=== PATIENT | female | born 1960 | race Caucasian/White ===

== ENCOUNTER 2020-08-28 14:31 | Outpatient (REF) | payer OTHER, SELFPAY ==
[2020-08-28 17:09] LABS: MANUAL DIFF FLAG NO
[2020-08-28 17:22] LABS: Basophils Percent Auto 0.4 % (0-2); Eosinophils Absolute Auto 0.2 X10*3/uL (0.0-0.4); Eosinophils Percent Auto 1.8 % (0-4); Hematocrit 43.4 % (37-47); Hemoglobin 14.5 g/dl (12.0-16.0); Imm Gran Abs Auto 0.03 X10*3/uL (0.00-0.03); Imm Gran Pct Auto 0.3 % (0.0-0.4); Lymphocytes Absolute Auto 3.2 X10*3/uL (1.2-4.9); Mean Corpuscular HGB Conc 33.4 g/dl (31.0-35.0); Mean Corpuscular Hemoglobin 30.9 pg (27.0-33.0); Mean Corpuscular Volume 92.3 fL (80-98); Mean Platelet Volume 10.8 fL (9.4-12.3); Monocytes Absolute Auto 0.4 X10*3/uL (0.1-1.2); Monocytes Percent Auto 4.4 % (2-11); Neutrophils Absolute Auto 6.1 X10*3/uL (2.0-8.3); Neutrophils Percent Auto 61.1 % (45-73); Platelet Count 248 X10*3/uL (160-400); Red Cell Distribution Width 12.1 % (11.0-16.0)
[2020-08-28 17:33] LABS: Anion Gap 14 (12-20); Blood Urea Nitrogen 17 mg/dL (9-16); Calcium 9.8 mg/dL (8.4-10.2); Carbon Dioxide 29 mmol/L (22-29); Chloride 101 mmol/L (96-108); Estimated Glomerular Filt Rate > 60; Glucose Random 85 mg/dL (60-115); Potassium 4.4 mmol/l (3.3-5.1); Sodium 140 mmol/L (135-145)
[2020-08-29 19:42] LABS: LDL Cholesterol Direct 163 mg/dL (<100)
[2020-09-01 08:42] LABS: Vitamin D 25-OH, D2 <4 ng/mL; Vitamin D 25-OH, D3 51 ng/mL; Vitamin D 25-OH, Total 51 ng/mL (30-100)
== END 2020-08-28 14:32 | disposition home or self-care (01) ==
LOC: HO.HMGCLDS 14:31
PROVIDERS: PCP Internal Medicine; Visit Provider Internal Medicine
DX: R00.2 Palpitations (principal); J44.9 Chronic obstructive pulmonary disease, unspecified; G47.9 Sleep disorder, unspecified; F33.9 Major depressive disorder, recurrent, unspecified; E78.9 Disorder of lipoprotein metabolism, unspecified; M81.0 Age-related osteoporosis without current pathological fracture
CPT/HCPCS: 36415; 80048; 82306; 83721; 84443; 85025

== ENCOUNTER 2020-08-30 12:41 | Outpatient (REF) | payer OTHER, SELFPAY ==
--- NOTE | 2020-08-30 12:47 | XR_ITS ---
EXAMINATION: XR SOFT TISSUE NECK CLINICAL INDICATION: Localized swelling, mass and lump neck. COMPARISON: None TECHNIQUE: 2 views of the soft tissue neck were obtained. FINDINGS: The nasopharynx is widely patent. The oropharynx and vallecula are unremarkable. The epiglottis and aryepiglottic folds and subglottic airway appear normal. There is no prevertebral soft tissue swelling. Again, there is prior fusion cervical spine with anterior plate and screws C4-C6. There are degenerative changes with vertebral spurring and mild facet degeneration. Lung apices are clear. XR/XR soft tissue neck IMPRESSION: Unremarkable examination.
--- NOTE | 2020-08-30 12:47 | XR_ITS ---
EXAMINATION: XR CHEST CLINICAL INFORMATION: Cough COMPARISON: Chest radiographs 10/21/2016, 01/09/2016 TECHNIQUE: 2 views of the chest were obtained. FINDINGS: There is hyperinflation/COPD similar to prior study. The lungs are clear. The vascularity is normal. There is no airspace consolidation or groundglass opacity. The costophrenic sulci are clear. The heart is normal in size. The vascularity is normal. The hilar and mediastinal contours are normal. No acute bony abnormality. Again, there is curvature thoracic spine and old fusion hardware lower cervical spine. XR/XR chest 2V IMPRESSION: Hyperinflation/COPD. Lungs clear.
== END 2020-08-30 12:42 | disposition home or self-care (01) ==
LOC: HO.HMGCX 12:41
PROVIDERS: PCP Internal Medicine; Visit Provider Internal Medicine
DX: R22.1 Localized swelling, mass and lump, neck (principal); R05 Cough; F17.200 Nicotine dependence, unspecified, uncomplicated; J44.9 Chronic obstructive pulmonary disease, unspecified
CPT/HCPCS: 70360; 71046

== ENCOUNTER 2020-09-01 07:35 | Outpatient (REF) | payer OTHER, SELFPAY ==
--- NOTE | 2020-09-01 07:38 | MM_ITS ---
EXAMINATION: MM SCREENING DIGITAL BREAST TOMOSYNTHESIS, BILATERAL CLINICAL INFORMATION: Screening. Asymptomatic. The lifetime risk of breast cancer based on the Tyrer-Cuzick Model is 7.1%. COMPARISON: Mammography: August 27, 2019 and studies dating back to July 23, 2015 TECHNIQUE: Digital breast tomosynthesis is performed in both the craniocaudal and mediolateral oblique views along with computer-aided detection (CAD). Synthesized 2D images are generated from the tomosynthesis. FINDINGS: The breasts are heterogeneously dense, which may obscure small masses (ACR BI-RADS breast composition Category c). There are no significant masses, abnormal calcifications, or other abnormalities. MM/MM tomosynthesis screening BI IMPRESSION: There are no significant changes from prior study. ASSESSMENT: BI-RADS 1: Negative RECOMMENDATION: Routine annual mammography screening. This patient's information was entered into a reminder system with a target due date for their next mammogram.
== END 2020-09-01 07:36 | disposition home or self-care (01) ==
LOC: HO.MAMMO 07:35
PROVIDERS: Visit Provider Internal Medicine
DX: Z12.31 Encounter for screening mammogram for malignant neoplasm of breast (principal)
CPT/HCPCS: 77063; 77067

== ENCOUNTER 2021-02-08 08:31 | Outpatient (REF) | payer OTHER, SELFPAY ==
--- NOTE | ~2021-02-08 | XR_ITS ---
EXAMINATION: XR HIP, LEFT CLINICAL INFORMATION: Left hip pain COMPARISON: Previous x-ray September 2015 TECHNIQUE: Two views of the left hip. FINDINGS: Bone alignment is normal. No fracture or dislocation is seen. There are small osteophytes seen at the left hip joint.. Soft tissues are normal. XR/XR hip LT min 2V IMPRESSION: Mild degenerative changes.
[2021-02-08 11:19] LABS: MANUAL DIFF FLAG NO
[2021-02-08 11:40] LABS: Basophils Absolute Auto 0.1 X10*3/uL (0.0-0.2); Basophils Percent Auto 0.5 % (0-2); Eosinophils Absolute Auto 0.1 X10*3/uL (0.0-0.4); Eosinophils Percent Auto 1.3 % (0-4); Hematocrit 44.8 % (37-47); Hemoglobin 14.5 g/dl (12.0-16.0); Imm Gran Abs Auto 0.02 X10*3/uL (0.00-0.03); Imm Gran Pct Auto 0.2 % (0.0-0.4); Lymphocytes Absolute Auto 2.7 X10*3/uL (1.2-4.9); Lymphocytes Percent Auto 25.8 % (20-40); Mean Corpuscular HGB Conc 32.4 g/dl (31.0-35.0); Mean Corpuscular Hemoglobin 30.9 pg (27.0-33.0); Mean Corpuscular Volume 95.5 fL (80-98); Mean Platelet Volume 10.7 fL (9.4-12.3); Monocytes Absolute Auto 0.4 X10*3/uL (0.1-1.2); Monocytes Percent Auto 4.2 % (2-11); Neutrophils Absolute Auto 7.1 X10*3/uL (2.0-8.3); Platelet Count 258 X10*3/uL (160-400); Red Blood Count 4.69 X10*6/uL (4.20-5.50); Red Cell Distribution Width 12.3 % (11.0-16.0); White Blood Count 10.4 X10*3/uL (4.8-10.8)
[2021-02-08 12:13] LABS: Alanine Aminotransferase 28 U/L (0-31); Albumin Level 4.9 g/dL (3.5-5.0); Alkaline Phosphatase 79 U/L (39-117); Anion Gap 18 (12-20); Aspartate Amino Transferase 24 U/L (5-31); Bilirubin Total 0.8 mg/dL (0.0-1.0); Blood Urea Nitrogen 15 mg/dL (9-16); Calcium 9.9 mg/dL (8.4-10.2); Carbon Dioxide 25 mmol/L (22-29); Chloride 102 mmol/L (96-108); Cholesterol 306 mg/dL; Estimated Glomerular Filt Rate > 60; Glucose Fasting 86 mg/dL (60-99); HDL Cholesterol 92 mg/dL; LDL Cholesterol Calculated 176 mg/dl; Potassium 4.4 mmol/L (3.3-5.1); Sodium 141 mmol/L (135-145); Triglycerides 194 mg/dL
[2021-02-08 12:16] LABS: TSH reflex Free T4 1.34 uIU/mL (0.32-4.0)
[2021-02-14 12:11] LABS: Vitamin D 25-OH, D2 <4 ng/mL; Vitamin D 25-OH, D3 65 ng/mL; Vitamin D 25-OH, Total 65 ng/mL (30-100)
== END 2021-02-08 08:32 | disposition home or self-care (01) ==
LOC: HO.HMGCX 08:31
PROVIDERS: PCP Internal Medicine; Visit Provider Internal Medicine
DX: Z00.01 Encounter for general adult medical examination with abnormal findings (principal); M25.552 Pain in left hip; M81.0 Age-related osteoporosis without current pathological fracture; J44.9 Chronic obstructive pulmonary disease, unspecified; E78.9 Disorder of lipoprotein metabolism, unspecified; G47.9 Sleep disorder, unspecified; F33.9 Major depressive disorder, recurrent, unspecified; F17.200 Nicotine dependence, unspecified, uncomplicated
CPT/HCPCS: 36415; 73502; 80053; 80061; 82306; 84443; 85025

== ENCOUNTER 2021-05-15 07:03 | Outpatient (REF) | payer OTHER, SELFPAY ==
[2021-05-15 12:02] LABS: Alanine Aminotransferase 20 U/L (0-31); Albumin Level 4.2 g/dL (3.5-5.0); Alkaline Phosphatase 63 U/L (39-117); Anion Gap 16 (12-20); Aspartate Amino Transferase 21 U/L (5-31); Bilirubin Total 1.1 mg/dL (0.0-1.0); Blood Urea Nitrogen 18 mg/dL (9-16); Calcium 9.7 mg/dL (8.4-10.2); Carbon Dioxide 26 mmol/L (22-29); Chloride 106 mmol/L (96-108); Cholesterol 215 mg/dL; Estimated Glomerular Filt Rate > 60; Glucose Fasting 94 mg/dL (60-99); HDL Cholesterol 83 mg/dL; LDL Cholesterol Calculated 112 mg/dl; Potassium 4.7 mmol/L (3.3-5.1); Sodium 143 mmol/L (135-145); Total Protein 6.9 g/dL (6.5-8.0); Triglycerides 103 mg/dL
== END 2021-05-15 07:04 | disposition home or self-care (01) ==
LOC: HO.HMGCLDS 07:03
PROVIDERS: PCP Internal Medicine; Visit Provider Internal Medicine
DX: E78.9 Disorder of lipoprotein metabolism, unspecified (principal); F33.9 Major depressive disorder, recurrent, unspecified; G47.9 Sleep disorder, unspecified; J44.9 Chronic obstructive pulmonary disease, unspecified
CPT/HCPCS: 36415; 80053; 80061

== ENCOUNTER 2021-09-07 09:55 | Outpatient (REF) | payer OTHER, SELFPAY ==
--- NOTE | ~2021-09-07 | MM_ITS ---
EXAMINATION: MM SCREENING DIGITAL BREAST TOMOSYNTHESIS, BILATERAL CLINICAL INFORMATION: Screening. Asymptomatic. The lifetime risk of breast cancer based on the Tyrer-Cuzick Model is 7%. COMPARISON: Mammography: 09/01/2020, 08/27/2019, 08/11/2018 TECHNIQUE: Digital breast tomosynthesis is performed in both the craniocaudal and mediolateral oblique views along with computer-aided detection (CAD). Synthesized 2D images are generated from the tomosynthesis. Additional right CC view is provided. FINDINGS: The breasts are heterogeneously dense, which may obscure small masses (ACR BI-RADS breast composition Category c). There are no significant masses, abnormal calcifications, or other abnormalities. Breast tissue composition borders on average fibroglandular. No developing density. The axilla and skin contours are unremarkable. No significant changes. MM/MM tomosynthesis screening BI IMPRESSION: No mammographic evidence of malignancy. ASSESSMENT: BI-RADS 1: Negative RECOMMENDATION: Routine annual mammography screening. This patient's information was entered into a reminder system with a target due date for their next mammogram.
== END 2021-09-07 09:56 | disposition home or self-care (01) ==
LOC: HO.MAMMO 09:55
PROVIDERS: PCP Internal Medicine; Visit Provider Internal Medicine
DX: Z12.31 Encounter for screening mammogram for malignant neoplasm of breast (principal)
CPT/HCPCS: 77063; 77067

== ENCOUNTER 2022-08-26 12:04 | Outpatient (REF) | payer OTHER, SELFPAY ==
--- NOTE | ~2022-08-26 | XR_ITS ---
EXAMINATION: XR SHOULDER, RIGHT CLINICAL INFORMATION: Pain COMPARISON: None TECHNIQUE: AP external rotation, Grashey, scapular Y, and axillary views of the right shoulder. FINDINGS: Bone alignment is normal. No fracture or dislocation. Normal glenohumeral joint. Mild arthritis at the acromioclavicular joint. Soft tissue calcification adjacent to the greater tuberosity suggestive of calcific tendinitis or bursitis. XR/XR shoulder RT min 2V IMPRESSION: Arthritis at the acromioclavicular joint and soft tissue calcification adjacent to the greater tuberosity suggestive of calcific tendinitis or bursitis.
== END 2022-08-26 12:05 | disposition home or self-care (01) ==
LOC: HO.HMGCX 12:04
PROVIDERS: PCP Nurse Practitioner Family; Visit Provider Nurse Practitioner Family
DX: M25.511 Pain in right shoulder (principal)
CPT/HCPCS: 73030

== ENCOUNTER 2022-09-07 13:55 | Emergency (ER) | payer OTHER, SELFPAY ==
--- NOTE | ~2022-09-07 | CT_ITS ---
EXAMINATION: CT CHEST, ABDOMEN AND PELVIS WITHOUT CONTRAST CLINICAL INFORMATION: Left flank pain, trauma COMPARISON: CT chest 06/19/2017 TECHNIQUE: Multidetector volumetric imaging was performed of the chest, abdomen and pelvis following administration of without intravenous contrast. Oral contrast was not administered. Sagittal and coronal reformatted images were obtained on the technologist's workstation. This CT examination was performed using dose optimization techniques as appropriate, variously including the following: *Automated exposure control *Adjustment of mA and/or kV according to patient size (this includes techniques or standardized protocols for targeted exams where dose is matched to indication/reason for exam; i.e. extremities or head) *Use of iterative reconstruction technique DLP: 530 mGy-cm FINDINGS: CHEST WALL: Unremarkable. ABDOMINAL AND PELVIC WALL: Unremarkable. AXILLA: No lymphadenopathy. MEDIASTINUM: Heart is normal in size. No mediastinal lymphadenopathy. Lack of intravenous contrast limits evaluation for hilar adenopathy. Coronary artery calcification is present. PLEURA: There is no pleural effusion. LIVER AND BILIARY TREE: Unremarkable. GALLBLADDER: Unremarkable PANCREAS: Unremarkable SPLEEN: Unremarkable ADRENAL GLANDS: Unremarkable. KIDNEYS AND URETERS: No hydronephrosis or nephrolithiasis. UPPER GASTROINTESTINAL TRACT: The stomach and duodenum are unremarkable. VASCULAR: Unremarkable. ABDOMINOPELVIC LYMPH NODES: No lymphadenopathy. FREE FLUID: No free fluid. BLADDER: Unremarkable PELVIC VISCERA: Unremarkable LOWER GASTROINTESTINAL TRACT: Large and small bowel are unremarkable. Normal appendix. OSSEOUS STRUCTURES: Partially imaged cervical fusion hardware. L5 pars defects with grade 1 anterolisthesis of L5 on S1. No acute osseous abnormality. LUNGS: Moderate centrilobular emphysema. Few sub-5 mm solid pulmonary nodules, for example a 4 mm solid right upper lobe pulmonary nodule, 7:205 stable from 2017 favoring benign etiology. Few scattered distal endobronchial filling defects suggesting mucus impaction. CT/CT abdomen pelvis wo IV con IMPRESSION: 1. No traumatic findings in the chest, abdomen or pelvis. 2. Moderate centrilobular emphysema, recommend correlation with risk factors and consideration of annual low-dose screening CT chest. Few sub-5 mm solid pulmonary nodules are present however stable from 2017 favoring benign etiology. 3. Coronary artery calcification is present.
[2022-09-07 15:23] VITALS: BP 123/63; PULSE 76; RESP 18; TEMP 36.8; O2SAT 97; BMI 22.6
[2022-09-07 15:51] LABS: Appearance Urine Clear; Color Urine Yellow; Glucose Urine UA Negative (Negative); Leukocyte Esterase Urine Negative (Negative); Nitrite Urine Negative (Negative); UMIC TRIGGER UACC YES; Urine Blood Large (3+) (Negative); Urine Ketones 15 mg/dL (Negative); Urine Protein Negative (Neg-Trace)
[2022-09-07 15:56] LABS: Bacteria Urine None Seen (None Seen); Hyaline Casts Urine 0-2 /LPF (0-2); Squamous Epithelial Cell Urine 0-2 /HPF (0-2); WBC Urine 0-5 /HPF (0-5)
--- NOTE | 2022-09-07 18:35 | ED_ITS ---
HPI - General Adult General Chief complaint: Fall Stated complaint: fall 09/07/22 blood in urine Time Seen by Provider: 09/07/22 18:34 Source: patient Mode of arrival: ambulatory Limitations: no limitations History of Present Illness HPI narrative: Patient is a 62 year old assigned female at with a history of anxiety, depression, and COPD presenting to the emergency department today with left si ded pain after a fall. Patient states that earlier today she missed her last step and fell into some totes, striking her left side. Patient denies hitting her head in the incident. Patient denies any loss of consciousness. Patient denies any dizziness, lightheadedness, abdominal pain, nausea, vomiting, fever, chills, blurry vision, double vision, loss of vision, chest pain, difficulty breathing, shortness of breath, back pain, night sweats, pain with urination, increased urinary frequency, increased urinary urgency, blood in her stool, syncope or a near syncopal episode, bowel incontinence, bladder incontinence, bowel retention, bladder retention, or any other complaints at this time. Onset (ago): hour(s) Location: left (torso) Radiation: non-radiation Severity: mild Severity scale (1-10): 4 Quality: dull Pain Consistency: constant Relieving factors: none Exacerbating factors: none Associated symptoms: denies other symptoms Treatments prior to arrival: none Related Data Home Medications Medication Instructions Recorded Confirmed cholecalciferol (vitamin D3) 50 50 mcg PO DAILY 09/20/21 mcg (2,000 unit) capsule multivitamin (Daily Multi-Vitamin 1 tab PO DAILY 09/20/21 tablet) vitamin A 2,400 mcg capsule 2,400 mcg PO DAILY 08/26/22 Previous Rx's Medication Instructions Recorded ibuprofen 400 mg tablet 400 mg PO TID PRN pain #90 tabs 09/29/20 omega 2-mcf-ftx-fish oil 300 1 cap PO DAILY 90 days #90 caps 09/20/21 mg-1,000 mg capsule (Fish Oil) ezetimibe 10 mg tablet (Zetia) 10 mg PO DAILY 90 days #90 tabs 07/24/22 paroxetine HCl 40 mg tablet 40 mg PO QAM 90 days #90 tabs 07/24/22 trazodone 100 mg tablet 100 mg PO BEDTIME 90 days #90 tabs 07/24/22 Allergies Allergy/AdvReac Type Severity Reaction Status Date / Time buspirone AdvReac Unknown vomiting Verified 08/26/22 11:30 varenicline [From Chantix] AdvReac Mood Verified 08/26/22 11:30 changes, anger Wellbutrin AdvReac Unknown vomiting Uncoded 08/26/22 11:30 Review of Systems Constitutional: Constitutional: Reports no additional constitutional complaints, Denies chills, Denies fever(s) and Denies night sweats Eyes: Eyes: Reports no additional eye complaints, Denies blurry vision, Denies change in vision, Denies diplopia, Denies eye discharge, Denies loss of vision and Denies eye pain ENT: Denies dizziness Cardiovascular: Cardiovascular: Reports no additional cardiovascular complaints, Denies chest pain, Denies lightheadedness, Denies Loss of Consciousness and Denies dyspnea Respiratory: Respiratory: Reports no additional respiratory complaints and Denies dyspnea Gastrointestinal: Gastrointestinal: Reports no additional gastrointestinal complaints, Denies abdominal pain, Denies melena, Denies hematochezia, Denies change in bowel habits and Denies change in stool character Genitourinary: Genitourinary: Denies hematuria, Denies urinary frequency, Denies dysuria, Denies urinary incontinence, Denies urinary hesitancy and Denies urinary urgency Musculoskeletal: Musculoskeletal: Reports no additional musculoskeletal complaints, Denies numbness and Denies tingling Comments: left sided toros pain Neurologic: Denies dizziness, Denies loss of vision, Denies numbness and Denies tingling Psychiatric: Psychiatric: Reports no additional psychiatric complaints Endocrine: Endocrine: Reports no additional endocrine complaints Hematologic/Lymphatic: Hematologic/Lymphatic: Reports no additional hematologic/lymphatic complaints Allergic/Immunologic: Allergic/Immunologic: Reports no additional allergic/immunologic complaints [facility] Past Medical History Attestation statement: The following information was validated with the patient. Source: old records reviewed Medical History COPD (chronic obstructive pulmonary disease) Depression, major, recurrent Difficulty sleeping HLA B27 (HLA B27 positive) Lipid disorder Osteoporosis Palpitations Sleep apnea Smoker Urinary incontinence Surgical History Glaucoma History of laparoscopy History of spinal fusion History of vaginal hysterectomy Pinguecula of both eyes Family History Family History Father CVD (cardiovascular disease) Mother Kidney failure CHF (congestive heart failure) Atherosclerosis Atherosclerotic peripheral vascular disease Foot ulcer CVD (cardiovascular disease) Sister History of heart attack Brother CVD (cardiovascular disease) HTN (hypertension) Maternal Grandfather Unknown family medical history Maternal Grandmother Unknown family medical history Paternal Grandmother Bladder cancer Paternal Grandfather History of CVA (cerebrovascular accident) Other Mental health disorder Social History Social History Housing: House Alcohol intake: current Alcohol intake frequency: 0-2 drinks per day Alcohol type: wine Patient Tobacco Use Status: Current everyday Tobacco user Cigarettes Per Day: 10 Smoked in Last 30 Days: Yes e-Cigarette/Vaping Use: Never Used Second Hand Smoke Exposure: Yes Use of substances other than those prescribed or required for medical reasons: No Advance Directives: Yes Advance Directives Information Provided: No Advance Directives on File: No Current occupational status: disabled Cognitive needs: No Hearing needs: No Vision needs: No Physical Exam ED Vital Signs: Vital Signs - 24 hr 09/07/22 15:23 Temperature 98.2 F Pulse Rate 76 Respiratory Rate 18 Blood Pressure 123/63 Pulse Oximetry 97 Oxygen Delivery Method Room Air BMI result Body Mass Index 22.6 Const General: cooperative, no acute distress, alert and awake Nutritional Appearance: well nourished Orientation/consciousness: patient oriented x3 Limitations: no limitations HENMT Head: Yes normal to inspection and Yes atraumatic Ears: hearing grossly normal bilaterally and external ears normal General nose exam: Normal external nose present, no nasal discharge noted and no epistaxis Face and sinus: Yes normal facial exam, No abrasion and No laceration Mouth: Normal oral and palatal mucosa present, no drooling and no muffled voice Eyes General: appearance normal, both eyes and all related structures Periorbital: periorbital findings normal Eyelids: Yes eyelids normal Conjunctivae: conjunctivae normal Pupils: Equal, round and reactive pupils present EOM: EOMs intact bilaterally Neck Neck: Yes normal visual inspection, Yes full ROM and Yes no lymphadenopathy Chest Chest palpation & inspection: normal inspection of the chest Resp Effort & Inspection: normal respiratory effort and able to speak in complete sentences Auscultation: clear to auscultation bilaterally Cardio Rate: regular rate Rhythm: regular rhythm GI Inspection: Yes normal to inspection Neuro General: patient oriented x3 and moves all extremities Cranial nerves: Yes Equal, round and reactive pupils present Cognition (Neuro): normal cognition Motor exam (neuro): 5/5 motor strength present throughout Sensory Exam: Normal double simultaneous stimulation for sensation Coordination: [id number] test normal Extrem General: Yes normal to inspection, Yes full ROM and Yes capillary refill normal Psych Appearance: grossly normal Mental Status: mental status grossly normal Affect: normal affect Attitude: cooperative Thought process: Normal thought process present Thought content: Normal thought content present Insight: Good insight present (Psych) Medical Decision Making MDM Narrative Medical decision making narrative: Patient is a 62 year old assigned female at with a history of anxiety, depression, and COPD presenting to the emergency department today with left sided torso pain. Patient's physical exam was unremarkable. Patient's blood work was unremarkable. Patient's urine showed blood but no acute infectious process. Patient's chest and abdominal CTs showed no acute process. I explained my physical exam findings as well as all test results to the patient. I answered all questions asked by the patient. Patient received PO [place] which she stated helped her pain significantly. I stressed the importance of the patient taking her medication as prescribed. I stressed the importance of the patient following up with her primary care provider. I stressed the importance of the patient returning to the emergency department immediately if her symptoms were to worsen or if she were to develop any dizziness, shortness of breath, difficulty breathing, chest pain, blurry vision, loss of vision, nausea, vomiting, ab dominal pain, fever, chills, back pain, or any other complaints. Patient verbalized agreement and understanding with this treatment plan and discharge. Medical Records Medical records reviewed: Yes I reviewed the patient's medical records. Lab Data Lab results reviewed: Yes I reviewed the patient's lab results. Result diagrams: 09/07/22 19:13 09/07/22 19:13 Labs: Lab Results 09/07/22 09/07/22 09/07/22 Range/Units 15:39 19:13 19:13 WBC 10.2 (4.8-10.8) X10*3/uL RBC 4.51 (4.20-5.50) X10*6/uL Hgb 14.2 (12.0-16.0) g/dl Hct 42.8 (37.0-47.0) % MCV 94.9 (80.0-98.0) fL MCH 31.5 (27.0-33.0) pg MCHC 33.2 (31.0-35.0) g/dl RDW 12.2 (11.0-16.0) % Plt Count 226 (160-400) X10*3/uL MPV 9.7 (9.4-12.3) fL Immature Gran % (Auto) 0.3 (0.0-0.4) % Neut % (Auto) 73.4 H (45-73) % Lymph % (Auto) 21.3 (20-40) % [place] % (Auto) 3.6 (2-11) % Eos % (Auto) 1.0 (0-4) % Baso % (Auto) 0.4 (0-2) % Lymph # (Auto) 2.2 (1.2-4.9) X10*3/uL [place] # (Auto) 0.4 (0.1-1.2) X10*3/uL Eos # (Auto) 0.1 (0.0-0.4) X10*3/uL Baso # (Auto) 0.0 (0.0-0.2) X10*3/uL Abs Immat Gran (auto) 0.03 (0.00-0.03) X10*3/uL Absolute Neuts (auto) 7.5 (2.0-8.3) x10*3/uL Absolute Nucleated RBC 0.000 (0.0-0.012) X10*3/uL Nucleated RBC % (auto) 0.0 (0.0-0.2) /100WBC PT 10.3 (10.0-13.1) SEC INR 0.9 (0.9-1.1) APTT 31.8 (26.0-36.4) SEC Sodium (135-145) mmol/L Potassium (3.3-5.1) mmol/L Chloride (96-108) mmol/L Carbon Dioxide (22-29) mmol/L Anion Gap (12-20) BUN (9-16) mg/dL Creatinine (0.5-1.4) mg/dL Estim Creat Clear Calc Estimated GFR Random Glucose (60-115) mg/dL Calcium (8.4-10.2) mg/dL Magnesium (1.6-2.6) mg/dL Total Bilirubin (0.0-1.0) mg/dL AST (5-31) U/L ALT (0-31) U/L Alkaline Phosphatase (39-117) U/L Total Protein (6.5-8.0) g/dL Albumin (3.5-5.0) g/dL Urine Color Yellow Urine Appearance Clear Urine pH 5.0 (5.0-9.0) Ur Specific [place] 1.020 (1.005-1.025) Urine Protein Negative (Neg-Trace) mg/dL Urine Glucose (UA) Negative (Negative) mg/dL Urine Ketones 15 (Negative) mg/dL Urine Blood Large (3+) H (Negative) Urine Nitrite Negative (Negative) Ur Leukocyte Esterase Negative (Negative) Urine RBC 6-10 H (0-2) /HPF Urine WBC 0-5 (0-5) /HPF Ur Squamous Epith Cells 0-2 (0-2) /HPF Urine Bacteria None Seen (None Seen) Hyaline Casts 0-2 (0-2) /LPF 09/07/22 Range/Units 19:13 WBC (4.8-10.8) X10*3/uL RBC (4.20-5.50) X10*6/uL Hgb (12.0-16.0) g/dl Hct (37.0-47.0) % MCV (80.0-98.0) fL MCH (27.0-33.0) pg MCHC (31.0-35.0) g/dl RDW (11.0-16.0) % Plt Count (160-400) X10*3/uL MPV (9.4-12.3) fL Immature Gran % (Auto) (0.0-0.4) % Neut % (Auto) (45-73) % Lymph % (Auto) (20-40) % [place] % (Auto) (2-11) % Eos % (Auto) (0-4) % Baso % (Auto) (0-2) % Lymph # (Auto) (1.2-4.9) X10*3/uL [place] # (Auto) (0.1-1.2) X10*3/uL Eos # (Auto) (0.0-0.4) X10*3/uL Baso # (Auto) (0.0-0.2) X10*3/uL Abs Immat Gran (auto) (0.00-0.03) X10*3/uL Absolute Neuts (auto) (2.0-8.3) x10*3/uL Absolute Nucleated RBC (0.0-0.012) X10*3/uL Nucleated RBC % (auto) (0.0-0.2) /100WBC PT (10.0-13.1) SEC INR (0.9-1.1) APTT (26.0-36.4) SEC Sodium 138 (135-145) mmol/L Potassium 4.1 (3.3-5.1) mmol/L Chloride 104 (96-108) mmol/L Carbon Dioxide 23 (22-29) mmol/L Anion Gap 15 (12-20) BUN 22 H (9-16) mg/dL Creatinine 1.10 (0.5-1.4) mg/dL Estim Creat Clear Calc 43.0 Estimated GFR 51 Random Glucose 143 H (60-115) mg/dL Calcium 9.5 (8.4-10.2) mg/dL Magnesium 2.1 (1.6-2.6) mg/dL Total Bilirubin 0.6 (0.0-1.0) mg/dL AST 27 (5-31) U/L ALT 26 (0-31) U/L Alkaline Phosphatase 68 (39-117) U/L Total Protein 7.2 (6.5-8.0) g/dL Albumin 4.3 (3.5-5.0) g/dL Urine Color Urine Appearance Urine pH (5.0-9.0) Ur Specific [place] (1.005-1.025) Urine Protein (Neg-Trace) mg/dL Urine Glucose (UA) (Negative) mg/dL Urine Ketones (Negative) mg/dL Urine Blood (Negative) Urine Nitrite (Negative) Ur Leukocyte Esterase (Negative) Urine RBC (0-2) /HPF Urine WBC (0-5) /HPF Ur Squamous Epith Cells (0-2) /HPF Urine Bacteria (None Seen) Hyaline Casts (0-2) /LPF Imaging Data CT abdomen, pelvis, chest: Attestation: I personally reviewed and interpreted this imaging study as follows: My impression: No acute process. Radiologist's impression: EXAMINATION: CT CHEST, ABDOMEN AND PELVIS WITHOUT CONTRAST CLINICAL INFORMATION: Left flank pain, trauma? COMPARISON: CT chest 06/19/2017? TECHNIQUE: Multidetector volumetric imaging was performed of the chest, abdomen and pelvis following administration of without intravenous contrast. Oral contrast was not administered. Sagittal and coronal reformatted images were obtained on the technologist's workstation. This CT examination was performed using dose optimization techniques as appropriate, variously including the following: *Automated exposure control *Adjustment of mA and/or kV according to patient size (this includes techniques or standardized protocols for targeted exams where dose is matched to indication/reason for exam; i.e. extremities or head) *Use of iterative reconstruction technique DLP: 530 mGy-cm FINDINGS: CHEST WALL: Unremarkable. ABDOMINAL AND PELVIC WALL:? Unremarkable.? AXILLA: No lymphadenopathy.? MEDIASTINUM:? Heart is normal in size. No mediastinal lymphadenopathy. Lack of intravenous contrast limits evaluation for hilar adenopathy. Coronary artery calcification is present. PLEURA: There is no pleural effusion.? ? LIVER AND BILIARY TREE: Unremarkable. ? GALLBLADDER: Unremarkable? PANCREAS: Unremarkable? SPLEEN: Unremarkable? ADRENAL GLANDS: Unremarkable.? KIDNEYS AND URETERS: No hydronephrosis or nephrolithiasis.? UPPER GASTROINTESTINAL TRACT: The stomach and duodenum are unremarkable. ? VASCULAR: Unremarkable. ABDOMINOPELVIC LYMPH NODES: No lymphadenopathy. FREE FLUID: No free fluid. BLADDER: Unremarkable? PELVIC VISCERA: Unremarkable LOWER GASTROINTESTINAL TRACT: Large and small bowel are unremarkable. Normal appendix. OSSEOUS STRUCTURES: Partially imaged cervical fusion hardware. L5 pars defects with grade 1 anterolisthesis of L5 on S1. No acute osseous abnormality.? LUNGS: Moderate centrilobular emphysema. Few sub-5 mm solid pulmonary nodules, for example a 4 mm solid right upper lobe pulmonary nodule, 7:205 stable from 2017 favoring benign etiology.? Few scattered distal endobronchial filling defects suggesting mucus impaction. CT/CT chest wo IV con IMPRESSION: 1.? No traumatic findings in the chest, abdomen or pelvis. 2.? Moderate centrilobular emphysema, recommend correlation with risk factors and consideration of annual low-dose screening CT chest. Few sub-5 mm solid pulmonary nodules are present however stable from 2017 favoring benign etiology. 3.? Coronary artery calcification is present. Dictated By: Arielle Rivas MD Signed By: Electronically signed by Arielle Rivas MD 09/07/222007 Discharge Plan Discharge Clinical Impression: Fall Patient Disposition: Home, Self-Care Instructions: Fall Prevention (ED) Additional Instructions: Your CT scan of your abdomen, pelvis, and chest showed no fractures/brakes or an y evidence of trauma. Your lab work was all normal including a normal complete blood count and comprehensive metabolic panel. Your urine showed the presence of some blood but no signs of infection. Follow up with your primary care provider. Return to the emergency department immediately if your symptoms worsen or if you develop any dizziness, shortness of breath, difficulty breathing, chest pain, blurry vision, loss of vision, nausea, vomiting, abdominal pain, fever, chills, back pain, or any other complaints. Prescriptions: No Action ibuprofen 400 mg tablet 400 mg PO TID PRN (Reason: pain) Qty: 90 2RF ezetimibe [Zetia] 10 mg tablet 10 mg PO DAILY 90 Days Qty: 90 1RF trazodone 100 mg tablet 100 mg PO BEDTIME 90 Days Qty: 90 0RF paroxetine HCl 40 mg tablet 40 mg PO QAM 90 Days Qty: 90 0RF cholecalciferol (vitamin D3) 50 mcg (2,000 unit) capsule 50 mcg PO DAILY multivitamin [Daily Multi-Vitamin] Tablet 1 tab PO DAILY omega 9-ctc-pby-fish oil [Fish Oil] 300-1,000 mg capsule 1 cap PO DAILY 90 Days Qty: 90 3RF vitamin A 2,400 mcg capsule 2,400 mcg PO DAILY Referrals: Melvin Lao, [employer] [facility] [Primary Care Provider] - Print Language: Portuguese
[2022-09-07 19:19] LABS: MANUAL DIFF FLAG NO
[2022-09-07 19:20] LABS: Basophils Percent Auto 0.4 % (0-2); Eosinophils Absolute Auto 0.1 X10*3/uL (0.0-0.4); Hematocrit 42.8 % (37.0-47.0); Hemoglobin 14.2 g/dl (12.0-16.0); Imm Gran Abs Auto 0.03 X10*3/uL (0.00-0.03); Imm Gran Pct Auto 0.3 % (0.0-0.4); Lymphocytes Absolute Auto 2.2 X10*3/uL (1.2-4.9); Lymphocytes Percent Auto 21.3 % (20-40); Mean Corpuscular HGB Conc 33.2 g/dl (31.0-35.0); Mean Corpuscular Hemoglobin 31.5 pg (27.0-33.0); Mean Corpuscular Volume 94.9 fL (80.0-98.0); Mean Platelet Volume 9.7 fL (9.4-12.3); Monocytes Absolute Auto 0.4 X10*3/uL (0.1-1.2); Monocytes Percent Auto 3.6 % (2-11); Neutrophils Absolute Auto 7.5 x10*3/uL (2.0-8.3); Neutrophils Percent Auto 73.4 % (45-73); Platelet Count 226 X10*3/uL (160-400); Red Blood Count 4.51 X10*6/uL (4.20-5.50); Red Cell Distribution Width 12.2 % (11.0-16.0); White Blood Count 10.2 X10*3/uL (4.8-10.8)
[2022-09-07 19:31] LABS: INTERNATIONAL NORM RATIO 0.9 (0.9-1.1); Prothrombin Time 10.3 SEC (10.0-13.1)
[2022-09-07 19:34] LABS: Partial Thromboplastin Time 31.8 SEC (26.0-36.4)
[2022-09-07 19:41] LABS: Alanine Aminotransferase 26 U/L (0-31); Albumin Level 4.3 g/dL (3.5-5.0); Alkaline Phosphatase 68 U/L (39-117); Anion Gap 15 (12-20); Aspartate Amino Transferase 27 U/L (5-31); Bilirubin Total 0.6 mg/dL (0.0-1.0); Blood Urea Nitrogen 22 mg/dL (9-16); Calcium 9.5 mg/dL (8.4-10.2); Carbon Dioxide 23 mmol/L (22-29); Chloride 104 mmol/L (96-108); Estimated Glomerular Filt Rate 51; Glucose Random 143 mg/dL (60-115); Magnesium 2.1 mg/dL (1.6-2.6); Potassium 4.1 mmol/L (3.3-5.1); Sodium 138 mmol/L (135-145); Total Protein 7.2 g/dL (6.5-8.0)
[2022-09-07] MEDS: HYDROcodone Bit/Acetam 5/325 TABLET 1 TAB PO (20:03)
[2022-09-07 20:53] VITALS: BP 120/82; PULSE 82; RESP 18; TEMP 36.7; O2SAT 98
== END 2022-09-07 20:55 | disposition home or self-care (01) ==
PROVIDERS: Physician Assistant Medical; Emergency Provider Emergency Medicine Emergency Medical Services; PCP Nurse Practitioner Family
DX: R10.12 Left upper quadrant pain (principal); Z91.81 History of falling
CPT/HCPCS: 36415; 71250; 74176; 80053; 81001; 83735; 85025; 85610; 85730; 99284

== ENCOUNTER 2022-09-29 11:46 | Outpatient (REF) | payer OTHER, SELFPAY ==
--- NOTE | ~2022-09-29 | MM_ITS ---
EXAMINATION: MM SCREENING DIGITAL BREAST TOMOSYNTHESIS, BILATERAL CLINICAL INFORMATION: Screening. Asymptomatic. The lifetime risk of breast cancer based on the Tyrer-Cuzick Model is 8%. COMPARISON: Mammography: 09/07/2021, 09/01/2020, 06/27/2019 TECHNIQUE: Digital breast tomosynthesis is performed in both the craniocaudal and mediolateral oblique views along with computer-aided detection (CAD). Synthesized 2D images are generated from the tomosynthesis. FINDINGS: The breasts are heterogeneously dense, which may obscure small masses (ACR BI-RADS breast composition Category c). There are no significant masses, abnormal calcifications, or other abnormalities. Parenchymal pattern is similar to prior studies. No developing density or architectural abnormality. The axilla and skin contours are unremarkable. MM/MM tomosynthesis screening BI IMPRESSION: No mammographic evidence of malignancy. ASSESSMENT: BI-RADS 1: Negative RECOMMENDATION: Routine annual mammography screening. This patient's information was entered into a reminder system with a target due date for their next mammogram.
== END 2022-09-29 11:47 | disposition home or self-care (01) ==
LOC: HO.MAMMO 11:46
PROVIDERS: PCP Nurse Practitioner Family; Visit Provider Nurse Practitioner Family
DX: Z12.31 Encounter for screening mammogram for malignant neoplasm of breast (principal)
CPT/HCPCS: 77063; 77067

== ENCOUNTER 2022-10-08 09:07 | Outpatient (REF) | payer OTHER, SELFPAY ==
[2022-10-08 11:23] LABS: MANUAL DIFF FLAG NO
[2022-10-08 11:27] LABS: Basophils Absolute Auto 0.1 X10*3/uL (0.0-0.2); Basophils Percent Auto 0.5 % (0-2); Eosinophils Absolute Auto 0.1 X10*3/uL (0.0-0.4); Eosinophils Percent Auto 0.6 % (0-4); Hemoglobin 15.4 g/dl (12.0-16.0); Imm Gran Abs Auto 0.03 X10*3/uL (0.00-0.03); Imm Gran Pct Auto 0.3 % (0.0-0.4); Lymphocytes Absolute Auto 2.2 X10*3/uL (1.2-4.9); Lymphocytes Percent Auto 20.3 % (20-40); Mean Corpuscular HGB Conc 33.5 g/dl (31.0-35.0); Mean Corpuscular Hemoglobin 31.6 pg (27.0-33.0); Mean Corpuscular Volume 94.5 fL (80.0-98.0); Mean Platelet Volume 10.5 fL (9.4-12.3); Monocytes Absolute Auto 0.4 X10*3/uL (0.1-1.2); Monocytes Percent Auto 3.4 % (2-11); Neutrophils Absolute Auto 8.3 x10*3/uL (2.0-8.3); Neutrophils Percent Auto 74.9 % (45-73); Platelet Count 251 X10*3/uL (160-400); Red Blood Count 4.87 X10*6/uL (4.20-5.50); Red Cell Distribution Width 12.1 % (11.0-16.0)
[2022-10-08 11:43] LABS: Appearance Urine Clear; Color Urine Yellow; Glucose Urine UA Negative (Negative); Leukocyte Esterase Urine Negative (Negative); Nitrite Urine Negative (Negative); PH 5.5 (5.0-9.0); Specific Gravity - Urine 1.015 (1.005-1.025); UMIC TRIGGER UACC YES; Urine Blood Small (1+) (Negative); Urine Ketones Trace mg/dL (Negative); Urine Protein Negative (Neg-Trace)
[2022-10-08 11:46] LABS: Bacteria Urine None Seen (None Seen); Hyaline Casts Urine 0-2 /LPF (0-2); Squamous Epithelial Cell Urine 0-2 /HPF (0-2); WBC Urine 0-5 /HPF (0-5)
[2022-10-08 12:04] LABS: TSH reflex Free T4 0.67 uIU/mL (0.32-4.0)
[2022-10-08 12:14] LABS: Alanine Aminotransferase 25 U/L (0-31); Albumin Level 4.9 g/dL (3.5-5.0); Alkaline Phosphatase 82 U/L (39-117); Anion Gap 16 (12-20); Aspartate Amino Transferase 24 U/L (5-31); Bilirubin Total 1.1 mg/dL (0.0-1.0); Blood Urea Nitrogen 16 mg/dL (9-16); Calcium 10.6 mg/dL (8.4-10.2); Carbon Dioxide 27 mmol/L (22-29); Chloride 102 mmol/L (96-108); Cholesterol 252 mg/dL; Estimated Glomerular Filt Rate > 60; Glucose Fasting 93 mg/dL (60-99); HDL Cholesterol 83 mg/dL; LDL Cholesterol Calculated 140 mg/dl; Sodium 140 mmol/L (135-145); Total Protein 7.7 g/dL (6.5-8.0); Triglycerides 145 mg/dL
== END 2022-10-08 09:08 | disposition home or self-care (01) ==
LOC: HO.WFDLDS 09:07
PROVIDERS: Visit Provider Nurse Practitioner Family
DX: Z01.818 Encounter for other preprocedural examination (principal); K59.09 Other constipation; D36.9 Benign neoplasm, unspecified site; E78.5 Hyperlipidemia, unspecified; Z79.899 Other long term (current) drug therapy
CPT/HCPCS: 36415; 80053; 80061; 81001; 84443; 85025; 99202; 99212

== ENCOUNTER 2022-10-16 11:24 | Outpatient (REF) | payer OTHER, SELFPAY ==
[2022-10-16 14:06] LABS: Appearance Urine Clear; Color Urine Yellow; Glucose Urine UA Negative (Negative); Leukocyte Esterase Urine Negative (Negative); Nitrite Urine Negative (Negative); PH 5.5 (5.0-9.0); UMIC TRIGGER UACC YES; Urine Blood Small (1+) (Negative); Urine Ketones 15 mg/dL (Negative); Urine Protein Negative (Neg-Trace)
[2022-10-16 14:10] LABS: Bacteria Urine None Seen (None Seen); Hyaline Casts Urine 0-2 /LPF (0-2); Squamous Epithelial Cell Urine 0-2 /HPF (0-2); WBC Urine 0-5 /HPF (0-5)
[2022-10-16 14:14] LABS: MANUAL DIFF FLAG NO
[2022-10-16 14:33] LABS: Eosinophils Percent Auto 0.8 % (0-4); Hematocrit 43.9 % (37.0-47.0); Hemoglobin 14.6 g/dl (12.0-16.0); Imm Gran Pct Auto 0.3 % (0.0-0.4); Lymphocytes Percent Auto 24.4 % (20-40); Mean Corpuscular HGB Conc 33.3 g/dl (31.0-35.0); Mean Corpuscular Hemoglobin 31.1 pg (27.0-33.0); Mean Corpuscular Volume 93.6 fL (80.0-98.0); Mean Platelet Volume 10.8 fL (9.4-12.3); Monocytes Percent Auto 3.9 % (2-11); Neutrophils Percent Auto 70.2 % (45-73); Platelet Count 241 X10*3/uL (160-400); Red Blood Count 4.69 X10*6/uL (4.20-5.50); Red Cell Distribution Width 11.9 % (11.0-16.0); White Blood Count 10.1 X10*3/uL (4.8-10.8)
[2022-10-16 14:34] LABS: Basophils Percent Auto 0.4 % (0-2); Eosinophils Absolute Auto 0.1 X10*3/uL (0.0-0.4); Imm Gran Abs Auto 0.03 X10*3/uL (0.00-0.03); Lymphocytes Absolute Auto 2.5 X10*3/uL (1.2-4.9); Monocytes Absolute Auto 0.4 X10*3/uL (0.1-1.2); Neutrophils Absolute Auto 7.1 x10*3/uL (2.0-8.3)
[2022-10-17 11:58] LABS: Calcium (PTHI) 10.5 mg/dL (8.6-10.4); PTHI 44 pg/mL (16-77)
[2022-10-20 12:54] LABS: Calcium, Ionized 5.5 mg/dL (4.8-5.6)
== END 2022-10-16 11:25 | disposition home or self-care (01) ==
LOC: HO.HMGCLDS 11:24
PROVIDERS: PCP Nurse Practitioner Family; Visit Provider Nurse Practitioner Family
DX: E83.52 Hypercalcemia (principal); D72.829 Elevated white blood cell count, unspecified
CPT/HCPCS: 36415; 81001; 81003; 82330; 83970; 85025

== ENCOUNTER → 2022-11-05 08:24 | Outpatient (BNVA) | payer OTHER, SELFPAY | PROVIDERS: PCP Nurse Practitioner Family; Referring Provider Nurse Practitioner Family; Visit Provider Physician Assistant | DX: K59.09 Other constipation (principal); K57.90 Diverticulosis of intestine, part unspecified, without perforation or abscess without bleeding; Z86.010 Personal history of colon polyps | CPT/HCPCS: 99212 ==

== ENCOUNTER 2022-11-06 09:36 | Outpatient (REF) | payer OTHER, SELFPAY ==
--- NOTE | ~2022-11-06 | US_ITS ---
EXAMINATION: US RETROPERITONEAL COMPLETE (RENAL) CLINICAL INFORMATION: Other microscopic hematuria. COMPARISON: CT abdomen and pelvis 09/07/2022. Ultrasound abdomen 06/18/2017. Renal ultrasound 09/11/2015. TECHNIQUE: Real-time imaging of the kidneys and bladder. FINDINGS: RIGHT KIDNEY: 8.5 x 4.6 x 5.1 cm (SAG x AP x TRV). The kidney is normal in size, contour, and echogenicity. Renal cortical thickness is normal. No renal calculi or hydronephrosis. There is anechoic cyst with septation in the upper pole measuring 1.1 x 1.2 x 1.2 cm. No additional lesions seen. LEFT KIDNEY: 9.3 x 5.2 x 4.5 cm (SAG x AP x TRV). The kidney is normal in size, contour, and echogenicity. Renal cortical thickness is normal. No calculi or focal parenchymal lesions. No hydronephrosis. BLADDER: Well distended and normal. Bilateral ureteral jets are demonstrated. Prevoid bladder volume is 171 mL. Postvoid bladder volume is 0 mL. US/US retroperitoneal comp IMPRESSION: Complex cyst upper pole right kidney. No echogenic renal calculi or hydronephrosis.
== END 2022-11-06 09:37 | disposition home or self-care (01) ==
LOC: HO.HMGCX 09:36
PROVIDERS: PCP Nurse Practitioner Family; Visit Provider Nurse Practitioner Family
DX: R31.29 Other microscopic hematuria (principal)
CPT/HCPCS: 76770

== ENCOUNTER 2022-12-12 10:15 | Outpatient (REF) | payer OTHER, SELFPAY ==
--- NOTE | ~2022-12-12 | XR_ITS ---
EXAMINATION: XR CHEST CLINICAL INFORMATION: J06.9 - Acute upper respiratory infection, unspecified COMPARISON: Chest radiographs 08/30/2020, 10/21/2016 TECHNIQUE: 2 views of the chest were obtained. FINDINGS: Hyperinflation/COPD is again seen similar to prior exams. There is no airspace consolidation or groundglass opacity. No pleural thickening or effusion. The costophrenic sulci are clear. The heart is normal in size. The vascularity is normal. The hilar and mediastinal contours are unremarkable. Bony structures again show dextrocurvature midthoracic spine with multilevel degenerative changes. There is anterior fusion plate lower cervical spine. XR/XR chest 2V IMPRESSION: 1. Hyperinflation/COPD. 2. No acute intrathoracic disease.
[2022-12-12 11:59] LABS: Influenza A PCR NEGATIVE (Negative); Influenza B PCR NEGATIVE (Negative); Resp Syncy Virus RNA Qual PCR NEGATIVE (Negative); SARS COV2 PCR INHOUSE NEGATIVE (Negative)
== END 2022-12-12 10:16 | disposition home or self-care (01) ==
LOC: HO.HMGCX 10:15
PROVIDERS: PCP Nurse Practitioner Family; Visit Provider Internal Medicine
DX: J06.9 Acute upper respiratory infection, unspecified (principal); R43.9 Unspecified disturbances of smell and taste; Z20.822 Contact with and (suspected) exposure to COVID-19
CPT/HCPCS: 0241U; 71046

== ENCOUNTER 2022-12-22 06:27 | Day surgery (SDC) | payer OTHER, SELFPAY ==
[2022-12-15 19:41] VITALS: BMI 22.4
[2022-12-22 06:46] VITALS: BP 111/74; PULSE 78; RESP 18; TEMP 36.4; O2SAT 99
[2022-12-22] MEDS: Lactated Ringers 1,000 ML 50 ML IVCONT (06:49)
--- NOTE | 2022-12-22 07:31 | MHC.SHP ---
Pre-Procedural Eval Section A Date of Service: 12/22/22 Section B Chief Complaint: History of polyps Details of Present Illness: 62y.o F with hx of polyps, COPD, osteoporosis, MDD here for surveillance colo. Last colo 2018 with hyperplastic and TA. Relevant Family History (Specify if Yes): No Relevant Social History: Tobacco Use Present Medications: see Short Stay Collaborative assessment Medical History: Significant History (as above ) History of Previous Operations: Relevant previous surgery/procedure and date(s) (Hysterectomy ) Allergies: Allergies Allergy/AdvReac Type Severity Reaction Status Date / Time buspirone AdvReac Intermediate vomiting Verified 12/22/22 06:39 varenicline [From Chantix] AdvReac Intermediate Mood Verified 12/22/22 06:39 changes, anger Wellbutrin AdvReac Intermediate vomiting Uncoded 12/22/22 06:39 Review of Systems Review of Systems Comment: 10 point ROS negative except as above Exam Exam Comment: Gen appear: No acute distress, well nourished HEENT: no icterus Chest: No overt resp distress Abd: soft, nontender, nondistended Psych: Stable affect, answering questions appropriately Neuro: A/Ox3 noted to move all extremities spontaneously Ext: no peripheral edema Plan Diagnosis/Plan: Unchanged I have reviewed the history and physical and performed a pertinent physical examination on my patient. No changes have occurred unless specified. Time Spent With Patient Time: Total time managing care of this patient today ____ minutes.
--- NOTE | 2022-12-22 07:33 | P.OP_ITS ---
Operative Note Operative Note Date of Service: 12/22/22 Narrative: Procedure: Colonoscopy Indication: Personal history of polyps Endoscopist: Disha Silver MD Anesthesia Provider: Dr Olivia Anthony Anesthesia type: MAC Instrument: Olympus [id number] Consent: Indication, risks vs benefits, and alternatives were discussed with the patient who gave written informed consent to proceed. EKG, pulse, pulse oximetry and blood pressure were monitored throughout the procedure. Please see anesthesia flowsheet. Procedure: The patient was brought to the procedure room and placed in the left lateral decubitus position. IV medications were administered by the anesthesia provider in attendance. A digital rectal exam was performed which was normal. The colonoscope was then inserted through the anus and advanced through the colon to the cecum at 75 cm,and terminal ileum. Mucosa was carefully examined under high definition white light as the instrument was slowly withdrawn in a retrograde panoramic fashion. Retroflexion was performed in rectum. The procedure was not difficult. There were no immediate obvious complications. The quality of the prep was BBPS: 2+2+2 = adequate Withdrawal time 15 minutes. Limitations: No limitations. Findings: Mucosa: Normal to cecum and terminal ileum. Protruding lesions: * 2 sessile polyp of size 3-4 mm in transverse colon. Cold snare polypectomy was performed. The polyps were completely removed and retrieved. * 2 sessile polyp of size 4-8 mm in sigmoid colon. Cold snare polypectomy was performed. The polyps were completely removed and retrieved. * Medium internal hemorrhoids without stigmata of recent bleeding. Impression: 1. Normal colon and terminal ileum mucosa 2. Total of 4 polyps removed from transverse and sigmoid colon. 3. Internal hemorrhoids Recommendations: - Follow path results. - Repeat colonoscopy in depending on results. Would recommend repeat colonoscopy after 5-7 years at the latest due to prep.
--- NOTE | 2022-12-22 08:00 | P.CONAN_ITS ---
HPI - Anesthesia Eval Consult details Narrative: for screening colonoscopy h polyps PMFSH Active Problems Active Problems: All Active Problems (Updated 12/16/22 @ 12:11 [facility] Cough (Acute) Hip pain, left (Acute) Anxiety (Acute) Bilateral tinnitus (Acute) Right shoulder pain (Acute) Lower thoracic back pain (Acute) Chronic constipation (Acute) Leukocytosis (Acute) Serum calcium elevated (Acute) Microscopic hematuria (Acute) Diverticulosis (Acute) Complex renal cyst (Acute) Upper respiratory tract infection (Acute) Multiple adenomatous polyps (Acute) Dyslipidemia (Acute) COPD (chronic obstructive pulmonary disease) (Acute) Nicotine dependence, cigarettes, uncomplicated (Acute) Osteoporosis (Acute ~2015) Depression, major, recurrent (Acute) Palpitations (Acute) Past Medical History Medical History Arthritis COPD (chronic obstructive pulmonary disease) Depression, major, recurrent Dyslipidemia HLA B27 (HLA B27 positive) Multiple adenomatous polyps Nicotine dependence, cigarettes, uncomplicated Osteoporosis (~2014) Palpitations Sleep apnea Urinary incontinence Family History Family History Father CVD (cardiovascular disease) Mother Kidney failure CHF (congestive heart failure) Atherosclerosis Atherosclerotic peripheral vascular disease Foot ulcer CVD (cardiovascular disease) Sister History of heart attack Brother CVD (cardiovascular disease) HTN (hypertension) Maternal Grandfather Unknown family medical history Maternal Grandmother Unknown family medical history Paternal Grandmother Bladder cancer Paternal Grandfather History of CVA (cerebrovascular accident) Other Mental health disorder Family history of problems with anesthesia: No Surgical History Surgical History History of colonoscopy History of eye surgery (~2013) History of foot surgery (~2018) History of laparoscopy (~2001) History of spinal fusion (~2013) History of vaginal hysterectomy (~2003) History of vaginal surgery (~2005) History of Problems with Anesthesia: No Social History Social History Housing: House Alcohol intake: current Alcohol intake frequency: a few times a week Alcohol type: wine Patient Tobacco Use Status: Current everyday Tobacco user Tobacco use type: Cigarette Cigarette Packs Per Day: 0.5 Cigarettes Per Day: 10.0 Years Smoked: 40 Smoked in Last 30 Days: Yes e-Cigarette/Vaping Use: Never Used Second Hand Smoke Exposure: Yes Use of substances other than those prescribed or required for medical reasons: No Are you DNR?: No Advance Directives: No Advance Directives Information Provided: Yes Advance Directives on File: No Recently lost weight without trying: No Nutrition Risks: No Nutritional Risk Current occupational status: disabled Cognitive needs: No Hearing needs: No Vision needs: No Meds Allergies Allergy/AdvReac Type Severity Reaction Status Date / Time buspirone AdvReac Intermediate vomiting Verified 12/22/22 06:39 varenicline [From Chantix] AdvReac Intermediate Mood Verified 12/22/22 06:39 changes, anger Wellbutrin AdvReac Intermediate vomiting Uncoded 12/22/22 06:39 Active Medications: Current Medications Lactated Ringer's (Lr) 1,000 mls @ 50 mls/hr IVCONT .Q20H RADHA Last Admin: 12/22/22 06:49 Dose: 50 mls/hr Home Medications Medication Instructions Recorded Confirmed Last Taken Type multivitamin (Daily Multi-Vitamin 1 tab PO DAILY 09/20/21 12/16/22 Unknown History tablet) vitamin A 2,400 mcg capsule 2,400 mcg PO DAILY 08/26/22 12/16/22 Unknown History Exam Exam Date and Time: December 22, 2022 0800 Height,Weight and Vital Signs: Height 5 ft 2 in Weight 55.792 kg Last Vital Signs Temp 97.6 F 12/22/22 06:46 Pulse 78 12/22/22 06:46 Resp 18 12/22/22 06:46 BP 111/74 12/22/22 06:46 Pulse Ox 99 12/22/22 06:46 O2 Del Method 12/22/22 06:46 Airway Mallampati Class: II TM Dist: >3cm Neck ROM: Full Heart: rr Lungs: cta Assessment and Plan Final Anesthetic Review Family History of Problems with Anesthesia: No History of Problems with Anesthesia: No NPO: Yes ASA Class: II Final Preanesthetic Review: No Changes in Pt Med Stat, Meds/Allgs Chart Reviewed, Consent Obtained/Reviewed, Anes Risks/Benef Reviewed and DNR Form (If Appl.) Patient Risk: Low Procedure Risk: Low Anesthetic Plan Anesthetic Plan: MAC: Disposition: Standard PACU
[2022-12-22 08:12] VITALS: BP 126/68; PULSE 76; RESP 18; TEMP 36.1; O2SAT 100
[2022-12-22 08:27] VITALS: BP 130/73; PULSE 66; RESP 18; TEMP 36.1; O2SAT 98
== END 2022-12-22 08:52 ==
PROVIDERS: PCP Nurse Practitioner Family; Visit Provider Internal Medicine
PROC: 0DJD8ZZ Inspection of Lower Intestinal Tract, Via Natural or Artificial Opening Endoscopic (ICD-10-PCS; CPT 45378; principal; 2022-12-22 07:30)
DX: Z12.11 Encounter for screening for malignant neoplasm of colon (principal); Z86.010 Personal history of colon polyps; K63.5 Polyp of colon; K64.8 Other hemorrhoids; K57.90 Diverticulosis of intestine, part unspecified, without perforation or abscess without bleeding; K59.09 Other constipation; J44.9 Chronic obstructive pulmonary disease, unspecified; M81.0 Age-related osteoporosis without current pathological fracture; F33.9 Major depressive disorder, recurrent, unspecified; G47.30 Sleep apnea, unspecified; Z79.899 Other long term (current) drug therapy; Z79.1 Long term (current) use of non-steroidal anti-inflammatories (NSAID); F17.210 Nicotine dependence, cigarettes, uncomplicated
CPT/HCPCS: 45385; 88305

== ENCOUNTER → 2023-01-05 09:30 | Outpatient (BNVA) | payer OTHER, SELFPAY | PROVIDERS: PCP Nurse Practitioner Family; Referring Provider Nurse Practitioner Family; Visit Provider Physician Assistant | DX: K57.90 Diverticulosis of intestine, part unspecified, without perforation or abscess without bleeding (principal); K64.8 Other hemorrhoids; K63.5 Polyp of colon | CPT/HCPCS: 99212 ==

== ENCOUNTER → 2023-01-08 09:36 | Outpatient (BNVA) | payer OTHER, SELFPAY | PROVIDERS: PCP Nurse Practitioner Family; Visit Provider Urology | DX: N28.1 Cyst of kidney, acquired (principal); R31.29 Other microscopic hematuria | CPT/HCPCS: 99202 ==

== ENCOUNTER 2023-01-30 08:23 | Outpatient (REF) | payer OTHER, SELFPAY ==
--- NOTE | ~2023-01-30 | CT_ITS ---
EXAMINATION: CT ABDOMEN WITHOUT AND WITH CONTRAST CLINICAL INFORMATION: Renal cyst COMPARISON: Previous CT of the abdomen and pelvis August 2022 and intraperitoneal ultrasound October 2022 TECHNIQUE: Contiguous axial thin section helical images of the abdomen were performed before and after the administration of oral contrast and 85 mL of Omnipaque 350 intravenous contrast. The data set was reformatted in the coronal and sagittal planes and reviewed on an independent workstation. This CT examination was performed using dose optimization techniques as appropriate, variously including the following: *Automated exposure control *Adjustment of mA and/or kV according to patient size (this includes techniques or standardized protocols for targeted exams where dose is matched to indication/reason for exam; i.e. extremities or head) *Use of iterative reconstruction technique DLP: 188 mGy-cm FINDINGS: LUNG BASES: Small nodule versus atelectasis in the medial segment of the right middle lobe is stable. The lung bases are otherwise clear. LIVER, GALLBLADDER, AND BILIARY TREE: Small 2 to 3 mm low-attenuation liver lesion high in the dome axial image 15 series 4. This is difficult to characterize due to small size probably represent a tiny cyst. The liver is otherwise normal. Normal gallbladder. No biliary duct dilatation. PANCREAS: Normal SPLEEN: Normal ADRENAL GLANDS AND KIDNEYS: The adrenal glands are normal. There is a 0.9 x 1.2 cm cyst in the upper pole right kidney. Hounsfield units precontrast measure 10. Hounsfield units postcontrast measure 13 without evidence of enhancement. There is a smaller 6 mm cyst in the lower pole of the right kidney. This is difficult to appreciate precontrast. No imaging follow-up recommended. The left kidney is normal. BOWEL LOOPS: Stool throughout the colon questionable for constipation. Small and large bowel is otherwise normal. LYMPH NODES: Normal. VASCULAR: Atherosclerotic disease. No aneurysm. BONES: Degenerative disc disease spondylolysis and spondylolisthesis at L5-S1. CT/CT abdomen wo/w IV con IMPRESSION: Right renal cysts. No imaging follow-up recommended. Normal left kidney. Probable tiny liver cyst. Fleischner guidelines were followed.
[2023-01-30] MEDS: iohexoL 350 MG/ML 100 ML INFUS..BTL IV (09:52)
[2023-01-30 13:46] LABS: Creatinine POC 0.6 mg/dL (0.5-1.4); GFR POC > 60
== END 2023-01-30 08:24 | disposition home or self-care (01) ==
LOC: HO.CT 08:23
PROVIDERS: PCP Nurse Practitioner Family; Visit Provider Urology
DX: N28.1 Cyst of kidney, acquired (principal)
CPT/HCPCS: 74170; 82565; Q9967

== ENCOUNTER 2023-02-13 15:08 | Outpatient (REF) | payer OTHER, SELFPAY | END 2023-02-13 15:09 | disposition home or self-care (01) | LOC: HO.LAB 15:08 | PROVIDERS: PCP Nurse Practitioner Family; Visit Provider Urology | DX: R31.29 Other microscopic hematuria (principal); N28.1 Cyst of kidney, acquired; F17.210 Nicotine dependence, cigarettes, uncomplicated; Z79.899 Other long term (current) drug therapy | CPT/HCPCS: 52000; 99212 ==

== ENCOUNTER 2023-08-31 09:29 | Outpatient (AMB) | payer OTHER, SELFPAY ==
--- NOTE | 2023-08-31 09:54 | A.OFFPC_ITS ---
Vital Signs 08/31/23 09:56 Height 5 ft 2 in Weight 126 lb BMI 23.0 BP 124/72 Blood Pressure Location Rt brachial Position Sitting Pulse 73 Pulse Source Pulse Oximeter Pulse Oximetry (%) 98 Oxygen Delivery Method Room Air Intake Visit Reasons: 6 m follow up ( Medications) Allergies buspirone Adverse Reaction (Intermediate, Verified 08/31/23 09:56) vomiting varenicline [From Chantix] Adverse Reaction (Intermediate, Verified 08/31/23 09:56) Mood changes, anger Wellbutrin Adverse Reaction (Intermediate, Uncoded 08/31/23 09:56) vomiting Medication List - Last Reconciled 08/31/23 by GORAN Burnett-ANDREA bisacodyl (Dulcolax (bisacodyl)) 5 mg PO DAILY PRN ezetimibe (Zetia) 10 mg PO DAILY 90 days dluw-aejps-vtz-D3-hyal-elsy bor 750 mg-100 mg- 25 mcg tabs PO ibuprofen 400 mg PO TID PRN multivitamin (Daily Multi-Vitamin tablet) 1 tab PO DAILY omega 5-aqa-peo-fish oil 300-1,000 mg (Fish Oil) 1 cap PO DAILY 90 days paroxetine HCl 40 mg PO QAM 90 days rosuvastatin 20 mg PO DAILY trazodone 100 mg PO BEDTIME 90 days vitamin A 2,400 mcg PO DAILY Tobacco use date assessed: 12/16/22 HPI 6 m follow up ( Medications) HPI Details Pt c/o left hip pain. She reports the most pain with standing up from sitting. Previous XR in 2020 showed mild degenerative changes. Will order XR. Denies any popping or clicking. Pt is unable to do PT due to transportation issues. Recommended home stretching routine. Dyslipidemia: On zetia 10mg and rosuvastatin 20mg. Will order labs. Denies chest pain, shortness of breath, headache, dizziness, and blurred vision. [facility] Medical History (Updated 08/31/23 @ 10:11 by GORAN Burnett-ANDREA) Arthritis Nicotine dependence, cigarettes, uncomplicated Dyslipidemia Multiple adenomatous polyps Urinary incontinence Sleep apnea Osteoporosis (~2014) HLA B27 (HLA B27 positive) Palpitations COPD (chronic obstructive pulmonary disease) Depression, major, recurrent Surgical History History of colonoscopy History of foot surgery (~2018) History of vaginal surgery (~2005) History of eye surgery (~2013) History of spinal fusion (~2013) History of vaginal hysterectomy (~2003) History of laparoscopy (~2001) Family History Father CVD (cardiovascular disease) Mother Kidney failure CHF (congestive heart failure) Atherosclerosis Atherosclerotic peripheral vascular disease Foot ulcer CVD (cardiovascular disease) Sister History of heart attack Brother CVD (cardiovascular disease) HTN (hypertension) Maternal Grandfather Unknown family medical history Maternal Grandmother Unknown family medical history Paternal Grandmother Bladder cancer Paternal Grandfather History of CVA (cerebrovascular accident) Other Mental health disorder Social History Housing: House Alcohol intake: current Alcohol intake frequency: a few times a week Alcohol type: wine Patient Tobacco Use Status: Current everyday Tobacco user Tobacco use type: Cigarette Cigarette Packs Per Day: 0.5 Cigarettes Per Day: 10.0 Years Smoked: 40 Packs Per Year: 20 Packs per year/per ci.00 e-Cigarette/Vaping Use: Never Used Second Hand Smoke Exposure: Yes Current occupational status: disabled Cognitive needs: No Hearing needs: No Vision needs: No Questionnaire Thrive Questionnaire Date Thrive assessed: 12/16/22 BARB-7 AMB Questionnaire BARB-7 Date BARB - 7 assessed: 12/16/22 Source: Developed by Drs. Bulmaro Campoverde, Vita Hanna, Harvey Ayers and colleagues, with an educational nick from [employer]. Review of Systems Const Reports as per HPI Physical exam (Primary Care) Vital Signs: Last Vital Signs Pulse 73 08/31/23 09:56 BP 124/72 08/31/23 09:56 Pulse Ox 98 08/31/23 09:56 Oxygen Delivery Method Room Air 08/31/23 09:56 BMI result Body Mass Index 23.0 Tobacco/Smoking Status: Tobacco use Status Tobacco use date assessed 12/16/22 08/31/23 09:59 Patient Tobacco Use Status Current everyday Tobacco 08/31/23 09:59 Tobacco use type Cigarette 08/31/23 09:59 e-Cigarette/Vaping Use Never Used 08/31/23 09:59 Thrive Assessment: Date of Thrive Assessment Date Thrive assessed 12/16/22 08/31/23 09:59 Const General: cooperative Orientation/consciousness: patient oriented x3 Resp Effort & Inspection: normal respiratory effort Auscultation: clear to auscultation bilaterally Cardio Rate: regular rate Rhythm: regular rhythm Heart sounds: S1 normal heart sound present and S2 normal heart sound present Neuro General: patient oriented x3 Psych Appearance: grossly normal Mental Status: mental status grossly normal Speech and movement: Normal speech and movement present Affect: normal affect Attitude: cooperative Thought process: Normal thought process present Thought content: Normal thought content present Insight: Good insight present (Psych) Judgement: Good judgement present (Psych) Assessment and Plan Assessment & Plan (1) Hip pain, left: Code(s): M25.552 - Pain in left hip Plan: XR ordered (2) Arthritis: Code(s): M19.90 - Unspecified osteoarthritis, unspecified site Plan: XR ordered (3) Dyslipidemia: Code(s): E78.5 - Hyperlipidemia, unspecified Plan: Labs ordered Plan The patient agreed to the use of a medical library assistant for this encounter. Scribed for GORAN Keller- by Jossy Chery medical library assistant, on 08/31/2023 at 10:10 EST Orders: Orders UA CC w/rflx Micro + Cult Today E78.5 - Hyperlipidemia, unspecified XR hip LT min 2V Today M19.90 - Unspecified osteoarthritis, unspecified site, M25.552 - Pain in left hip Complete Blood Count Auto Diff Today E78.5 - Hyperlipidemia, unspecified Comprehensive [place]. Panel Fast Today E78.5 - Hyperlipidemia, unspecified TSH reflex Free T4 Today E78.5 - Hyperlipidemia, unspecified Lipid Panel Today E78.5 - Hyperlipidemia, unspecified Coding Level of Care Code Est Pt Level 3 (33282) Diagnoses Hip pain, left M25.552 Arthritis M19.90 Dyslipidemia E78.5
[2023-08-31 09:56] VITALS: BP 124/72; PULSE 73; O2SAT 98; BMI 23.0
== END 2023-08-31 12:15 | disposition home or self-care (01) ==
PROVIDERS: PCP Nurse Practitioner Family; Visit Provider Nurse Practitioner Family
DX: M25.552 Pain in left hip (principal); M19.90 Unspecified osteoarthritis, unspecified site; E78.5 Hyperlipidemia, unspecified
CPT/HCPCS: 99213

== ENCOUNTER 2023-10-05 07:35 | Outpatient (REF) | payer OTHER, SELFPAY | END 2023-10-05 07:36 | disposition home or self-care (01) | LOC: HO.MAMMO 07:35 | PROVIDERS: PCP Nurse Practitioner Family; Visit Provider Nurse Practitioner Family | DX: Z12.31 Encounter for screening mammogram for malignant neoplasm of breast (principal) | CPT/HCPCS: 77063; 77067 ==

== ENCOUNTER → 2023-10-05 07:45 | Outpatient (BNV) | payer OTHER, SELFPAY | PROVIDERS: PCP Nurse Practitioner Family; Visit Provider Radiology Diagnostic Radiology | DX: Z12.31 Encounter for screening mammogram for malignant neoplasm of breast (principal) | CPT/HCPCS: 77063; 77067 ==

== ENCOUNTER 2023-12-25 08:45 | Outpatient (AMB) | payer OTHER, SELFPAY ==
--- NOTE | 2023-12-25 08:58 | A.OFFVIS_ITS ---
Intake Intake Visit Reasons: LDCT SD Allergies buspirone Adverse Reaction (Intermediate, Verified 08/31/23 09:56) vomiting varenicline [From Chantix] Adverse Reaction (Intermediate, Verified 08/31/23 09:56) Mood changes, anger Wellbutrin Adverse Reaction (Intermediate, Uncoded 08/31/23 09:56) vomiting HPI HPI Comments History of Present Illness Details Olivia is a pleasant 63 year old female, current smoker with a 34.5 PYH. Patient has been smoking since age 17 for 46 years at 3/4 ppd. Denies marijuana use. Denies exposure to chemicals or substances like asbestos. Admits second hand smoke exposure. Denies known family history of lung cancer. Denies personal history of cancers. Denies chest CT in last year. Last chest CT 08/30 revealed multiple <5mm nodules stable since 2017. Denies recent travel outside the [place]. Denies fever, chills, chest pain, new cough, hemoptysis or unintentional weight loss. Lung Cancer Screening Questionnaire reviewed with patient by provider. Shared Decision Making Completed. Discussed in detail with patient, the risk versus benefit of LDCT screening. Patient in agreement of proceeding with scan. [facility] Medical History (Updated 08/31/23 @ 10:11 by GORAN Burnett-ANDREA) Arthritis Nicotine dependence, cigarettes, uncomplicated Dyslipidemia Multiple adenomatous polyps Urinary incontinence Sleep apnea Osteoporosis (~2014) HLA B27 (HLA B27 positive) Palpitations COPD (chronic obstructive pulmonary disease) Depression, major, recurrent Surgical History History of colonoscopy History of foot surgery (~2018) History of vaginal surgery (~2005) History of eye surgery (~2013) History of spinal fusion (~2013) History of vaginal hysterectomy (~2003) History of laparoscopy (~2001) Family History Father CVD (cardiovascular disease) Mother Kidney failure CHF (congestive heart failure) Atherosclerosis Atherosclerotic peripheral vascular disease Foot ulcer CVD (cardiovascular disease) Sister History of heart attack Brother CVD (cardiovascular disease) HTN (hypertension) Maternal Grandfather Unknown family medical history Maternal Grandmother Unknown family medical history Paternal Grandmother Bladder cancer Paternal Grandfather History of CVA (cerebrovascular accident) Other Mental health disorder Social History Housing: House Alcohol intake: current Alcohol intake frequency: a few times a week Alcohol type: wine Patient Tobacco Use Status: Current everyday Tobacco user Tobacco use type: Cigarette Cigarette Packs Per Day: 0.5 Cigarettes Per Day: 10.0 Years Smoked: 40 e-Cigarette/Vaping Use: Never Used Second Hand Smoke Exposure: Yes Current occupational status: disabled Cognitive needs: No Hearing needs: No Vision needs: No Assessment & Plan Assessment & Plan (1) Nicotine dependence, cigarettes, uncomplicated: Comment: (current smoker - had chest CT 09/07/22 noted pulm nodules) Code(s): F17.210 - Nicotine dependence, cigarettes, uncomplicated Plan Shared decision-making visit completed today in office. This patient meets criteria for LDCT for lung cancer screening purposes and is asymptomatic. Offered smoking cessation. Patient has been scheduled for a low dose chest CT for screening purposes at [facility]. We discussed how the results will be obtained depending on CT findings. RADS 1 and RADS 2 will receive a letter with results and will follow up for annual LDCT. Patient informed they will be contacted at later date to schedule upcoming LDCT scan. RADS 3 and RADS 4 will receive a telephone call, or an office visit after reviewing case at our Lung Cancer Conference to determine when the next LDCT will be scheduled or further interventions that may be needed. Discussed importance of screening program and compliance with yearly LDCT scan as scheduled. Risks, benefits, and alternatives were discussed in detail and patient agrees to proceed. Risks discussed include but are not limited to: radiation exposure and possibility of additional intervention for benign disease. Benefits include detection of lung cancer at an early stage. A copy of today's visit and LDCT results will be sent to patient's PCP. Incidental findings on LDCT are PCP's responsibility. If there are incidental findings, our office will ensure that PCP office is aware of these findings. All questions were answered and patient is in agreement of plan. Coding Level of Care Code Lung Cancer Screening G0296 Diagnoses Nicotine dependence, cigarettes, uncomplicated F17.210
== END 2023-12-25 09:46 | disposition home or self-care (01) ==
PROVIDERS: PCP Nurse Practitioner Family; Referring Provider Nurse Practitioner Family; Visit Provider Nurse Practitioner Family
DX: F17.210 Nicotine dependence, cigarettes, uncomplicated (principal)
CPT/HCPCS: G0296

== ENCOUNTER 2023-12-25 09:14 | Outpatient (REF) | payer OTHER, SELFPAY ==
--- NOTE | ~2023-12-25 | CT_ITS ---
EXAMINATION: CT CHEST SCREENING CLINICAL INFORMATION: Current smoker at 1 pack per day. 43 pack-year history. COMPARISON: CT chest 09/07/2022. TECHNIQUE: Multidetector volumetric CT imaging of the chest is performed without contrast using low dose technique. Additional 2D coronal and sagittal reformatted images and axial 3D maximum intensity projection (MIP) images are generated on the CT workstation. This CT examination was performed using dose optimization techniques as appropriate, variously including the following: *Automated exposure control *Adjustment of mA and/or kV according to patient size (this includes techniques or standardized protocols for targeted exams where dose is matched to indication/reason for exam; i.e. extremities or head) *Use of iterative reconstruction technique DLP: 43 mGy-cm FINDINGS: LUNGS: Emphysematous changes are present. There is a 3 mm perifissural nodule present in the right middle lobe (5:269), unchanged from prior (7:205). Peribronchial thickening is present. Right basilar atelectasis is seen. The lungs are otherwise clear with no evidence of consolidation or additional nodules. MEDIASTINUM: The mediastinum is normal. CORONARY ARTERY CALCIFICATION: Moderate. PLEURA: There is no pleural effusion. No pleural mass or thickening. AXILLA: No lymphadenopathy. UPPER ABDOMEN: Unremarkable. OSSEOUS STRUCTURES: Unremarkable. CT/CT lung screening IMPRESSION: Pulmonary emphysema and a 3 mm perifissural right middle lobe nodule. ASSESSMENT: Lung-RADS category 2: Benign. RECOMMENDATION: Routine annual low-dose CT screening in 12 months.
== END 2023-12-25 09:15 | disposition home or self-care (01) ==
LOC: HO.CT 09:14
PROVIDERS: PCP Nurse Practitioner Family; Visit Provider Physician Assistant Medical
DX: R91.8 Other nonspecific abnormal finding of lung field (principal); F17.210 Nicotine dependence, cigarettes, uncomplicated
CPT/HCPCS: 71271; G0296

== ENCOUNTER 2024-04-13 09:09 | Outpatient (AMB) | payer OTHER, SELFPAY ==
[2024-04-13 09:18] VITALS: BP 118/70; PULSE 86; TEMP 36.6; O2SAT 99; BMI 23.0
--- NOTE | 2024-04-13 09:18 | MHC.OFFWIV ---
Intake Vital Signs 04/13/24 09:18 Height 5 ft 2 in Weight 126 lb BMI 23.0 BP 118/70 Blood Pressure Location Lt brachial Position Sitting Pulse 86 Pulse Source Pulse Oximeter Temp 97.8 F Temp Source Temporal Artery Scan Pulse Oximetry (%) 99 Oxygen Delivery Method Room Air Intake Visit Reasons: EP Diarreah Intake Note: pt is here today for diarreah started 3 weeks ago Patient Tobacco Use Status: Current everyday Tobacco user Allergies buspirone Adverse Reaction (Intermediate, Verified 04/13/24 09:21) vomiting varenicline [From Chantix] Adverse Reaction (Intermediate, Verified 04/13/24 09:21) Mood changes, anger Wellbutrin Adverse Reaction (Intermediate, Uncoded 04/13/24 09:21) vomiting Do you need a note to return to daycare/school/sports/work: No HPI HPI Comments History of Present Illness Details 64-year-old female presents today complaining of diarrhea x3 weeks. She has a past medical history of diverticulosis. She went to urgent care 3 days ago the put her on an antibiotic and recommended a stool culture which she did not do. She is here today for a re-evaluation. She states symptoms have not improved despite 4 days of antibiotics. We are requesting the stool culture be done here she also has a follow up visit with GI the end of May. [facility] Medical History (Updated 04/13/24 @ 09:40 by HARLAN Castellano) Arthritis Nicotine dependence, cigarettes, uncomplicated Dyslipidemia Multiple adenomatous polyps Urinary incontinence Sleep apnea Osteoporosis (~2014) HLA B27 (HLA B27 positive) Palpitations COPD (chronic obstructive pulmonary disease) Depression, major, recurrent Surgical History History of colonoscopy History of foot surgery (~2018) History of vaginal surgery (~2005) History of eye surgery (~2013) History of spinal fusion (~2013) History of vaginal hysterectomy (~2003) History of laparoscopy (~2001) Family History Father CVD (cardiovascular disease) Mother Kidney failure CHF (congestive heart failure) Atherosclerosis Atherosclerotic peripheral vascular disease Foot ulcer CVD (cardiovascular disease) Sister History of heart attack Brother CVD (cardiovascular disease) HTN (hypertension) Maternal Grandfather Unknown family medical history Maternal Grandmother Unknown family medical history Paternal Grandmother Bladder cancer Paternal Grandfather History of CVA (cerebrovascular accident) Other Mental health disorder Social History Housing: House Alcohol intake: current Alcohol intake frequency: a few times a week Alcohol type: wine Patient Tobacco Use Status: Current everyday Tobacco user Tobacco use type: Cigarette Cigarette Packs Per Day: 0.5 Cigarettes Per Day: 10.0 Years Smoked: 40 e-Cigarette/Vaping Use: Never Used Second Hand Smoke Exposure: Yes Current occupational status: disabled Cognitive needs: No Hearing needs: No Vision needs: No Review of Systems Const All systems reviewed & are unremarkable except as noted in HPI and below Eyes Reports no additional complaints ENT Reports no additional complaints Card Reports no additional complaints Resp Reports no additional complaints GI Reports diarrhea Reports no additional complaints Physical Exam Vital Signs: Last Vital Signs Temp 97.8 F 04/13/24 09:18 Pulse 86 04/13/24 09:18 BP 118/70 04/13/24 09:18 Pulse Ox 99 04/13/24 09:18 Oxygen Delivery Method Room Air 04/13/24 09:18 BMI result Body Mass Index 23.0 HEENT Head: Yes normal to inspection, Yes normocephalic and Yes atraumatic Ears: hearing grossly normal bilaterally General nose exam: Normal external nose present Face and sinus: Yes normal facial exam Resp Auscultation: clear to auscultation bilaterally Cardio Rate: regular rate Rhythm: regular rhythm Heart sounds: S1 normal heart sound present and S2 normal heart sound present GI Inspection: Yes normal to inspection Palpation (GI): Soft to palpation Auscultation: Hyperactive bowel sounds present Assessment & Plan Assessment & Plan (1) Diarrhea: Code(s): R19.7 - Diarrhea, unspecified Plan: The patient will continue her antibiotics and attend the follow up visit with GI. She also will submit a stool culture today Plan See plan Orders: Orders Giardia Ag Stool EIA Today R19.7 - Diarrhea, unspecified Cyclospora & Isospora Stool Today R19.7 - Diarrhea, unspecified Coding Level of Care Code Est Pt Level 3 (38505) Diagnoses Diarrhea R19.7
== END 2024-04-13 10:11 | disposition home or self-care (01) ==
PROVIDERS: PCP Nurse Practitioner Family; Visit Provider Physician Assistant Medical
DX: R19.7 Diarrhea, unspecified (principal)
CPT/HCPCS: 99213

== ENCOUNTER 2024-04-15 06:15 | Outpatient (REF) | payer OTHER, SELFPAY ==
[2024-04-15 10:37] LABS: Appearance Urine Clear; Color Urine Yellow; Glucose Urine UA Negative (Negative); Leukocyte Esterase Urine Negative (Negative); Nitrite Urine Negative (Negative); UMIC TRIGGER UACC YES; Urine Blood Moderate (2+) (Negative); Urine Ketones Negative (Negative); Urine Protein Negative (Neg-Trace)
[2024-04-15 10:44] LABS: Bacteria Urine None Seen (None Seen); Hyaline Casts Urine 0-2 /LPF (0-2); Squamous Epithelial Cell Urine 0-2 /HPF (0-2); WBC Urine 0-5 /HPF (0-5)
[2024-04-15 10:47] LABS: MANUAL DIFF FLAG NO
[2024-04-15 11:03] LABS: Basophils Absolute Auto 0.1 X10*3/uL (0.0-0.2); Basophils Percent Auto 0.6 % (0-2); Eosinophils Absolute Auto 0.2 X10*3/uL (0.0-0.4); Eosinophils Percent Auto 2.7 % (0-4); Hematocrit 46.1 % (37.0-47.0); Hemoglobin 15.2 g/dl (12.0-16.0); Imm Gran Abs Auto 0.03 X10*3/uL (0.00-0.03); Imm Gran Pct Auto 0.3 % (0.0-0.4); Lymphocytes Absolute Auto 2.4 X10*3/uL (1.2-4.9); Lymphocytes Percent Auto 26.3 % (20-40); Mean Corpuscular Volume 97.1 fL (80.0-98.0); Mean Platelet Volume 10.5 fL (9.4-12.3); Monocytes Absolute Auto 0.4 X10*3/uL (0.1-1.2); Monocytes Percent Auto 4.2 % (2-11); Neutrophils Absolute Auto 5.9 x10*3/uL (2.0-8.3); Neutrophils Percent Auto 65.9 % (45-73); Platelet Count 228 X10*3/uL (160-400); Red Blood Count 4.75 X10*6/uL (4.20-5.50); Red Cell Distribution Width 12.8 % (11.0-16.0)
[2024-04-15 11:12] LABS: Alanine Aminotransferase 76 U/L (0-31); Albumin Level 4.6 g/dL (3.5-5.0); Alkaline Phosphatase 64 U/L (39-117); Anion Gap 12 (12-20); Aspartate Amino Transferase 48 U/L (5-31); Blood Urea Nitrogen 16 mg/dL (9-16); Calcium 10.6 mg/dL (8.4-10.2); Carbon Dioxide 28 mmol/L (22-29); Chloride 107 mmol/L (96-108); Cholesterol 183 mg/dL (<200); Estimated Glomerular Filt Rate > 60; Glucose Fasting 102 mg/dL (60-99); HDL Cholesterol 83 mg/dL (>40); LDL Cholesterol Calculated 83 mg/dL (<100); Potassium 4.5 mmol/L (3.3-5.1); Sodium 142 mmol/L (135-145); Total Protein 7.4 g/dL (6.5-8.0); Triglycerides 87 mg/dL (<150)
[2024-04-15 11:29] LABS: TSH reflex Free T4 1.63 uIU/mL (0.32-4.0)
== END 2024-04-15 06:16 | disposition home or self-care (01) ==
LOC: HO.HMGCLDS 06:15
PROVIDERS: Physician Assistant Medical; PCP Nurse Practitioner Family; Visit Provider Nurse Practitioner Family
DX: E78.5 Hyperlipidemia, unspecified (principal); R19.7 Diarrhea, unspecified
CPT/HCPCS: 36415; 80053; 80061; 81001; 84443; 85025; 87015; 87207; 87329

== ENCOUNTER 2024-04-15 13:08 | Outpatient (REF) | payer OTHER, SELFPAY | END 2024-04-15 13:09 | disposition home or self-care (01) | LOC: HO.HMGCLNP 13:08 | PROVIDERS: Visit Provider Physician Assistant Medical | DX: M25.552 Pain in left hip (principal); R19.7 Diarrhea, unspecified | CPT/HCPCS: 87015; 87207; 87329 ==

== ENCOUNTER 2024-04-21 04:53 | Outpatient (REF) | payer OTHER, SELFPAY ==
[2024-04-21 15:10] LABS: Adenovirus F 40/41 Not Detected (Not Detect.); Astrovirus Not Detected (Not Detect.); Cryptosporidium Not Detected (Not Detect.); Cyclospora cayetanensis Not Detected (Not Detect.); E. coli EAEC Not Detected (Not Detect.); E. coli EPEC Not Detected (Not Detect.); E. coli ETEC Not Detected (Not Detect.); E. coli STEC Not Detected (Not Detect.); Entamoeba histolytica Not Detected (Not Detect.); Giardia lamblia Not Detected (Not Detect.); Plesiomonas shigelloides Not Detected (Not Detect.); Rotavirus A Not Detected (Not Detect.); Salmonella Not Detected (Not Detect.); Sapovirus Not Detected (Not Detect.); Vibrio Not Detected (Not Detect.); Vibrio Cholerae Not Detected (Not Detect.); Yersinia enterocolitica Not Detected (Not Detect.)
[2024-04-21 15:36] LABS: Shigella sp./EIEC Not Detected (Not Detect.)
[2024-04-21 15:54] LABS: Campylobacter Detected (Not Detect.)
== END 2024-04-21 04:54 | disposition home or self-care (01) ==
LOC: HO.HMGCLNP 04:53
PROVIDERS: Physician Assistant; PCP Nurse Practitioner Family; Visit Provider Nurse Practitioner Family
DX: R19.7 Diarrhea, unspecified (principal)
CPT/HCPCS: 87507

== ENCOUNTER 2024-04-26 07:57 | Outpatient (REF) | payer OTHER, SELFPAY ==
--- NOTE | ~2024-04-26 | US_ITS ---
EXAMINATION: US ABDOMEN LIMITED CLINICAL INFORMATION: Abnormal levels of other serum enzymes. COMPARISON: CT abdomen 01/30/2023. Ultrasound kidneys and bladder 11/06/2022. Ultrasound abdomen complete 06/18/2017. TECHNIQUE: Real-time imaging of the right upper quadrant abdominal viscera. FINDINGS: PANCREAS: Head and body the pancreas are normal. The tail was not well visualized due to bowel gas. LIVER: Normal. The liver is normal in size. The liver contour is normal. Parenchymal echogenicity is normal. No focal hepatic lesion. There is no intrahepatic biliary duct dilatation seen. GALLBLADDER: Normal. The gallbladder is physiologically distended without evidence of stones, sludge, polyps, wall thickening or pericholecystic fluid. COMMON BILE DUCT: Normal in caliber measuring 0.16 cm in diameter. RIGHT KIDNEY: Small on minimally complex cyst in the upper pole of the right kidney with thin septation. Bosniak type II. This is similar to previous CT January 2023. No imaging follow-up recommended. No hydronephrosis or renal calculi. The kidney measures 9.1 cm in maximum dimension. FREE FLUID: None. US/US abdomen limited IMPRESSION: Limited visualization of the tail the pancreas otherwise unremarkable exam.
[2024-04-26 10:19] LABS: MANUAL DIFF FLAG NO
[2024-04-26 10:24] LABS: Basophils Percent Auto 0.4 % (0-2); Eosinophils Absolute Auto 0.1 X10*3/uL (0.0-0.4); Eosinophils Percent Auto 0.8 % (0-4); Hematocrit 45.1 % (37.0-47.0); Hemoglobin 14.9 g/dl (12.0-16.0); Imm Gran Abs Auto 0.03 X10*3/uL (0.00-0.03); Imm Gran Pct Auto 0.3 % (0.0-0.4); Lymphocytes Absolute Auto 2.1 X10*3/uL (1.2-4.9); Lymphocytes Percent Auto 20.2 % (20-40); Mean Corpuscular Hemoglobin 31.6 pg (27.0-33.0); Mean Corpuscular Volume 95.8 fL (80.0-98.0); Mean Platelet Volume 10.7 fL (9.4-12.3); Monocytes Absolute Auto 0.4 X10*3/uL (0.1-1.2); Monocytes Percent Auto 3.3 % (2-11); Neutrophils Absolute Auto 7.9 x10*3/uL (2.0-8.3); Platelet Count 220 X10*3/uL (160-400); Red Blood Count 4.71 X10*6/uL (4.20-5.50); Red Cell Distribution Width 12.3 % (11.0-16.0); White Blood Count 10.5 X10*3/uL (4.8-10.8)
[2024-04-26 10:33] LABS: Appearance Urine Turbid; Color Urine Yellow; Glucose Urine UA Negative (Negative); Leukocyte Esterase Urine Negative (Negative); Nitrite Urine Negative (Negative); Specific Gravity - Urine 1.025 (1.005-1.025); UMIC TRIGGER UACC YES; Urine Blood Moderate (2+) (Negative); Urine Ketones Negative (Negative); Urine Protein Negative (Neg-Trace)
[2024-04-26 10:40] LABS: Bacteria Urine None Seen (None Seen); Hyaline Casts Urine 0-2 /LPF (0-2); WBC Urine 0-5 /HPF (0-5)
[2024-04-26 11:02] LABS: Erythrocyte Sedimentation Rate 8 MM/HR (0-20)
[2024-04-26 11:15] LABS: HBS Num1 0.68 mIU/mL (0-7.99); HBc Num1 0.11 S/CO (0.00-0.79); HBsAGNum1 0.31 S/CO (0.00-0.99); Hepatitis A Antibody IgM 0.34 Index (0-0.79); Hepatitis B Core Antibody Nonreactive (Nonreactive); Hepatitis B Surface Antigen Negative (Negative); ~HepC Num1 0.05 S/CO (0.00-0.79); ~Hepatitis A Antibody IgM Nonreactive (Nonreactive); ~Hepatitis B Surface Antibody NONREACTIVE (Nonreactive); ~Hepatitis C Antibody Nonreactive (Nonreactive)
[2024-04-26 11:17] LABS: Alanine Aminotransferase 80 U/L (0-31); Albumin Level 4.6 g/dL (3.5-5.0); Alkaline Phosphatase 63 U/L (39-117); Anion Gap 12 (12-20); Aspartate Amino Transferase 49 U/L (5-31); Bilirubin Total 1.1 mg/dL (0.0-1.0); Blood Urea Nitrogen 16 mg/dL (9-16); Calcium 9.8 mg/dL (8.4-10.2); Carbon Dioxide 26 mmol/L (22-29); Chloride 110 mmol/L (96-108); Estimated Glomerular Filt Rate > 60; Glucose Random 102 mg/dL (60-115); Potassium 4.2 mmol/L (3.3-5.1); Sodium 144 mmol/L (135-145); TSH reflex Free T4 0.83 uIU/mL (0.32-4.0); Total Protein 7.5 g/dL (6.5-8.0)
[2024-04-29 12:24] LABS: Transglutaminase IgA <1.0 U/mL
[2024-05-03 14:38] LABS: Endomysial IgA Antibody Negative (Negative)
== END 2024-04-26 07:58 | disposition home or self-care (01) ==
LOC: HO.HMGCX 07:57
PROVIDERS: PCP Nurse Practitioner Family; Visit Provider Nurse Practitioner Family
DX: R74.8 Abnormal levels of other serum enzymes (principal); R19.7 Diarrhea, unspecified
CPT/HCPCS: 36415; 76705; 80053; 81001; 84443; 85025; 85652; 86140; 86231; 86364; 86704; 86706; 86709; 86803; 87340

== ENCOUNTER 2024-04-26 08:15 | Outpatient (AMB) | payer OTHER, SELFPAY ==
--- NOTE | 2024-04-26 07:29 | MHC.PC.OV ---
Intake Visit Reasons: lab results Allergies buspirone Adverse Reaction (Intermediate, Verified 04/13/24 09:21) vomiting varenicline [From Chantix] Adverse Reaction (Intermediate, Verified 04/13/24 09:21) Mood changes, anger Wellbutrin Adverse Reaction (Intermediate, Uncoded 04/13/24 09:21) vomiting Tobacco use date assessed: 12/16/22 HPI lab results HPI Details Pt had recent stool studies which were positive for campylobacter. She was given azithromycin which she just finished. Pt reports ongoing diarrhea. She is having 2 bowel movements per day that are diarrhea. Pt reports loud bowel sounds. She is tolerating a diet. Pt still has her gallbladder. Will order repeat stool studies and labs. Reenforced the importance of staying hydrated. Pt will be following up with GI next month. Liver enzymes were elevated, she has an abdominal US today. Denies fever, chills, ABD pains, and blood in stool. [facility] Medical History Arthritis Nicotine dependence, cigarettes, uncomplicated Dyslipidemia Multiple adenomatous polyps Urinary incontinence Sleep apnea Osteoporosis (~2014) HLA B27 (HLA B27 positive) Palpitations COPD (chronic obstructive pulmonary disease) Depression, major, recurrent Surgical History History of colonoscopy History of foot surgery (~2018) History of vaginal surgery (~2005) History of eye surgery (~2013) History of spinal fusion (~2013) History of vaginal hysterectomy (~2003) History of laparoscopy (~2001) Family History Father CVD (cardiovascular disease) Mother Kidney failure CHF (congestive heart failure) Atherosclerosis Atherosclerotic peripheral vascular disease Foot ulcer CVD (cardiovascular disease) Sister History of heart attack Brother CVD (cardiovascular disease) HTN (hypertension) Maternal Grandfather Unknown family medical history Maternal Grandmother Unknown family medical history Paternal Grandmother Bladder cancer Paternal Grandfather History of CVA (cerebrovascular accident) Other Mental health disorder Social History Housing: House Alcohol intake: current Alcohol intake frequency: a few times a week Alcohol type: wine Patient Tobacco Use Status: Current everyday Tobacco user Tobacco use type: Cigarette Cigarette Packs Per Day: 0.5 Cigarettes Per Day: 10.0 Years Smoked: 40 e-Cigarette/Vaping Use: Never Used Second Hand Smoke Exposure: Yes Current occupational status: disabled Cognitive needs: No Hearing needs: No Vision needs: No Questionnaire Thrive Questionnaire Date Thrive assessed: 12/16/22 BARB-7 AMB Questionnaire BARB-7 Date BARB - 7 assessed: 12/16/22 Source: Developed by Drs. Bulmaro Campoverde, Vita Hanna, Harvey Ayers and colleagues, with an educational nick from [employer]. Review of Systems Const Reports as per HPI Physical exam (Primary Care) Tobacco/Smoking Status: Tobacco use Status Tobacco use date assessed 12/16/22 04/26/24 07:32 Patient Tobacco Use Status Current everyday Tobacco 04/26/24 07:32 Tobacco use type Cigarette 04/26/24 07:32 e-Cigarette/Vaping Use Never Used 04/26/24 07:32 Thrive Assessment: Date of Thrive Assessment Date Thrive assessed 12/16/22 04/26/24 07:32 Const General: cooperative Orientation/consciousness: patient oriented x3 Neuro General: patient oriented x3 Psych Appearance: grossly normal Mental Status: mental status grossly normal Speech and movement: Clear speech present Affect: normal affect Attitude: cooperative Thought process: Normal thought process present Thought content: Normal thought content present Insight: Good insight present (Psych) Judgement: Good judgement present (Psych) Assessment and Plan Assessment & Plan (1) Diarrhea: Code(s): R19.7 - Diarrhea, unspecified Plan: Labs and stool studies ordered Plan The patient agreed to the use of a medical records analyst for this encounter. Scribed for RYAN Keller by Jossy Chery medical records analyst, on 04/26/2024 at 07:40 EST. Orders: Orders Complete Blood Count Auto Diff Today R19.7 - Diarrhea, unspecified TSH reflex Free T4 Today R19.7 - Diarrhea, unspecified Comprehensive Met. Panel Today R19.7 - Diarrhea, unspecified GI Panel Today R19.7 - Diarrhea, unspecified CDiff Gene PCR Today R19.7 - Diarrhea, unspecified Erythrocyte Sedimentation Rate Today R19.7 - Diarrhea, unspecified Transglutaminase IgA Today R19.7 - Diarrhea, unspecified H pylori Ag Stool Today R19.7 - Diarrhea, unspecified C Reactive Protein Today R19.7 - Diarrhea, unspecified Endomysial IgA rflx Titer Today R19.7 - Diarrhea, unspecified Coding Level of Care Code [facility] Est Pt Level 3 (74584) Diagnoses Diarrhea R19.7
== END 2024-04-26 10:06 | disposition home or self-care (01) ==
LOC: HO.HMGC 08:15
PROVIDERS: PCP Nurse Practitioner Family; Visit Provider Nurse Practitioner Family
DX: R19.7 Diarrhea, unspecified (principal)
CPT/HCPCS: 99213

== ENCOUNTER 2024-04-27 04:40 | Outpatient (REF) | payer OTHER, SELFPAY ==
[2024-04-27 12:37] LABS: CDiff Gene PCR NEGATIVE (Negative)
[2024-04-27 13:02] LABS: Adenovirus F 40/41 Not Detected (Not Detect.); Astrovirus Not Detected (Not Detect.); Cryptosporidium Not Detected (Not Detect.); Cyclospora cayetanensis Not Detected (Not Detect.); E. coli EAEC Not Detected (Not Detect.); E. coli EPEC Not Detected (Not Detect.); E. coli ETEC Not Detected (Not Detect.); E. coli STEC Not Detected (Not Detect.); Entamoeba histolytica Not Detected (Not Detect.); Giardia lamblia Not Detected (Not Detect.); Plesiomonas shigelloides Not Detected (Not Detect.); Rotavirus A Not Detected (Not Detect.); Salmonella Not Detected (Not Detect.); Sapovirus Not Detected (Not Detect.); Shigella sp./EIEC Not Detected (Not Detect.); Vibrio Not Detected (Not Detect.); Vibrio Cholerae Not Detected (Not Detect.); Yersinia enterocolitica Not Detected (Not Detect.)
[2024-04-27 16:12] LABS: Campylobacter Detected (Not Detect.)
[2024-04-29 14:21] LABS: Norovirus Stool PCR NOT DETECTED
== END 2024-04-27 04:41 | disposition home or self-care (01) ==
LOC: HO.HMGCLNP 04:40
PROVIDERS: PCP Nurse Practitioner Family; Visit Provider Nurse Practitioner Family
DX: R19.7 Diarrhea, unspecified (principal)
CPT/HCPCS: 87338; 87493; 87507

== ENCOUNTER 2024-10-08 09:01 | Outpatient (AMB) | payer OTHER, SELFPAY ==
[2024-10-08 09:06] VITALS: BP 110/62; PULSE 84; TEMP 36.8; O2SAT 97; BMI 22.9
--- NOTE | 2024-10-08 09:06 | AM.OFFWIN_ITS ---
Intake Vital Signs 10/08/24 09:06 Height 5 ft 2 in Weight 125 lb BMI 22.9 BP 110/62 Blood Pressure Location Lt brachial Position Sitting Pulse 84 Pulse Source Pulse Oximeter Temp 98.2 F Temp Source Oral Pulse Oximetry (%) 97 Oxygen Delivery Method Room Air Intake Visit Reasons: EP cough for 2 weeks Intake Note: Pt is here today c/o cough for 2weeks Patient Tobacco Use Status: Current everyday Tobacco user Allergies buspirone Adverse Reaction (Intermediate, Verified 11/22/24 14:40) vomiting varenicline [From Chantix] Adverse Reaction (Intermediate, Verified 11/22/24 14:40) Mood changes, anger Wellbutrin Adverse Reaction (Intermediate, Uncoded 11/22/24 14:40) vomiting HPI EP cough for 2 weeks HPI Details Patient is a 64-year-old female with COPD who still smokes, and comes to the walk-in clinic complaining of 2 weeks of respiratory symptoms. She developed nasal and chest congestion, persistent cough, and coughing fits that sometimes cause choking and shortness of breath. She states that interferes with sleeping, and she is developing low back pain with the cough. She went to in urgent care 3 days ago, and states that she had a chest x-ray which she was told was unremarkable at the time. She did not get radiologist read. She did not tell them that she had COPD, and she was treated with Tessalon Perles which she states she gets side effects from and do not help to relieve the cough. She states that she develops excessive mucus early in the day, and for the rest of the day the cough is nonproductive and mostly dry. She denies fever chills, weakness or dizziness, myalgias or malaise, chest pain or pressure, tightness with breathing, loss of sense of taste or smell, or other significant associated symptoms. [facility] Medical History (Updated 11/22/24 @ 15:15 by Alejandro Brown MD) Pulmonary nodules Arthritis Nicotine dependence, cigarettes, uncomplicated Dyslipidemia Multiple adenomatous polyps Urinary incontinence Sleep apnea Osteoporosis (~2014) HLA B27 (HLA B27 positive) Palpitations COPD (chronic obstructive pulmonary disease) Depression, major, recurrent Surgical History History of colonoscopy History of foot surgery (~2018) History of vaginal surgery (~2005) History of eye surgery (~2013) History of spinal fusion (~2013) History of vaginal hysterectomy (~2003) History of laparoscopy (~2001) Family History Father CVD (cardiovascular disease) Mother Kidney failure CHF (congestive heart failure) Atherosclerosis Atherosclerotic peripheral vascular disease Foot ulcer CVD (cardiovascular disease) Sister History of heart attack Brother CVD (cardiovascular disease) HTN (hypertension) Maternal Grandfather Unknown family medical history Maternal Grandmother Unknown family medical history Paternal Grandmother Bladder cancer Paternal Grandfather History of CVA (cerebrovascular accident) Other Mental health disorder Social History Housing: House Alcohol intake: current Alcohol intake frequency: a few times a week Alcohol type: wine Patient Tobacco Use Status: Current everyday Tobacco user Tobacco use type: Cigarette Cigarette Packs Per Day: 0.5 Cigarettes Per Day: 10.0 Years Smoked: 40 e-Cigarette/Vaping Use: Never Used Second Hand Smoke Exposure: Yes Current occupational status: disabled Cognitive needs: No Hearing needs: No Vision needs: Yes Review of Systems Const All systems reviewed & are unremarkable except as noted in HPI and below Physical Exam Vital Signs: Last Vital Signs Temp 98.2 F 10/08/24 09:06 Pulse 84 10/08/24 09:06 BP 110/62 10/08/24 09:06 Pulse Ox 97 10/08/24 09:06 Oxygen Delivery Method Room Air 10/08/24 09:06 BMI result Body Mass Index 22.9 Const General: cooperative, healthy appearing, comfortable, no acute distress, alert, awake, Physically active and well groomed; No anxious, diaphoretic, ill appearing, intoxicated appearing, poor hygiene or tired appearing Nutritional Appearance: average body habitus Orientation/consciousness: oriented to person Limitations: no limitations HEENT Head: Yes normal to inspection, Yes normocephalic and Yes atraumatic Ears: hearing grossly normal bilaterally, external ears normal, TM's normal bilaterally and EAC's normal General nose exam: Normal external nose present, Normal nares present, Normal nasal mucous membranes and turbinates present, Normal septum present and No nasal discharge present Face and sinus: Yes normal facial exam, Yes sinuses nontender and Yes face symmetric Mouth: Normal oral and palatal mucosa present, lip normal and tongue normal Throat: Yes posterior oropharynx normal, No peritonsillar mass, No postnasal drainage, No uvular edema and No cobblestoning Eyes General: appearance normal, both eyes and all related structures Neck Neck: Yes normal visual inspection, Yes no lymphadenopathy, Yes trachea midline, Yes supple and No anterior neck swelling Chest Chest palpation & inspection: normal palpation of entire chest wall Resp Effort & Inspection: normal respiratory effort, able to speak in complete sentences, abnormal respiratory pattern, no audible wheezes, Actively coughing (Occasional) Quality: dry, no grunting, not labored, no nasal flaring, pursed lip breathing, no respiratory distress, no retractions, no stridor, no tripod positioning, no use of accessory muscles, No prolonged expiratory phase and symmetric chest movement Auscultation: clear to auscultation bilaterally, no crackles, no rales, no rhonchi, no wheezes, lung sounds not diminished and No rub present Cardio Palpation: normal PMI Rate: regular rate Rhythm: regular rhythm Skin Other: Good color, warm and dry Neuro General: oriented to person Psych Appearance: grossly normal Mental Status: mental status grossly normal Speech and movement: Normal speech and movement present Affect: normal affect Attitude: cooperative Thought process: Normal thought process present Insight: Good insight present (Psych) Judgement: Good judgement present (Psych) Assessment & Plan Assessment & Plan (1) COPD exacerbation: Code(s): J44.1 - Chronic obstructive pulmonary disease with (acute) exacerbation Plan: Patient is a 64 year year old female with COPD and still actively smoking, who comes to the walk-in clinic complaining of productive cough with coughing fits for the last 2 weeks. She had a chest x-ray which was apparently normal a few days ago, however does not available for me to view it. However symptoms do seem more consistent with a COPD flare than with pneumonia. She has no pain at rest, but some chest wall tightness with coughing. For this we discussed heating, stretching, and I will write her for naproxen as she reports she has no issues with taking ibuprofen. She can discontinue the Tessalon Perles, and we discussed how Mucinex would be better for her anyway, although she has had issues with dextromethorphan in the past, so I advised she take just the guai fenesin alone. I will write her for a prescription of azithromycin and a course of oral steroids as her cough is more reactive at this point. She reports that she has not been sick with a respiratory infection in a few years, so this empiric treatment should work for her. I advised she monitor symptoms and follow-up if they persist or worsen, or go to the emergency department with worrisome symptoms. She might need repeat chest x-ray at that point. She was amenable to this plan, as well as following up with PCP as scheduled in the summer. She reports that she has decreased her smoking since she became ill and we discussed that she should continue to keep the smoking at a minimum and attempt smoking cessation as soon as she can. If she is still unable to quit smoking by her PCP appointment, she should be offered assistance with smoking cessation treatment options, and considered for maintenance COPD treatment, as she does not have any at this point. Medications: New azithromycin take 500 mg today (day 1), then 250 mg for 4 days (days 2-5) PO 6 tabs 0RF prednisone then take 2 and half tabs daily for 3 days, then take 2 tabs daily for 3 days, then take 1 and half tabs daily for 3 days, and then take 1 tab daily for 3 days 60 mg (3 x 20 mg) PO DAILY 30 tabs 0RF 3 days Coding Level of Care Code Est Pt Level 4 (94979) Diagnoses COPD exacerbation J44.1
== END 2024-10-08 10:03 | disposition home or self-care (01) ==
PROVIDERS: PCP Nurse Practitioner Family; Visit Provider Physician Assistant Medical
DX: J44.1 Chronic obstructive pulmonary disease with (acute) exacerbation (principal)

== ENCOUNTER → 2024-10-08 09:01 | Outpatient (BNVA) | payer OTHER, SELFPAY | PROVIDERS: PCP Nurse Practitioner Family; Visit Provider Physician Assistant Medical | DX: J44.1 Chronic obstructive pulmonary disease with (acute) exacerbation (principal) | CPT/HCPCS: 99212 ==

== ENCOUNTER 2024-10-13 13:19 | Outpatient (REF) | payer OTHER, SELFPAY ==
--- NOTE | ~2024-10-13 | XR_ITS ---
EXAMINATION: XR CHEST CLINICAL INFORMATION: Cough. COMPARISON: CT lung screen dated 12/25/2023. TECHNIQUE: 2 views of the chest were obtained. FINDINGS: The lungs are clear. The cardiomediastinal silhouette is normal in size. There is no pleural effusion or pneumothorax. No acute osseous abnormality. XR/XR chest 2V IMPRESSION: No acute cardiopulmonary findings. Electronically signed by: Arjun Crawford MD 10/13/2024 03:[address] [facility]
== END 2024-10-13 13:20 | disposition home or self-care (01) ==
LOC: HO.HMGCX 13:19
PROVIDERS: PCP Nurse Practitioner Family; Visit Provider Physician Assistant
DX: R05.9 Cough, unspecified (principal); J44.0 Chronic obstructive pulmonary disease with (acute) lower respiratory infection; M54.50 Low back pain, unspecified
CPT/HCPCS: 71046; 99212

== ENCOUNTER 2024-10-13 13:19 | Outpatient (AMB) | payer OTHER, SELFPAY ==
--- NOTE | 2024-10-13 13:43 | MHC.OFFWIV ---
Intake Vital Signs 10/13/24 13:50 Weight 128 lb BP 110/74 Blood Pressure Location Rt brachial Position Sitting Pulse 78 Pulse Source Pulse Oximeter Pulse Oximetry (%) 95 Oxygen Delivery Method Room Air Intake Visit Reasons: EP lower back pain Patient Tobacco Use Status: Current everyday Tobacco user Allergies buspirone Adverse Reaction (Intermediate, Verified 10/08/24 09:07) vomiting varenicline [From Chantix] Adverse Reaction (Intermediate, Verified 10/08/24 09:07) Mood changes, anger Wellbutrin Adverse Reaction (Intermediate, Uncoded 10/08/24 09:07) vomiting HPI HPI Comments History of Present Illness Details History of Present Illness The patient is a 64-year-old female presenting with lower back pain. The pain has become significant, limiting mobility, following an episode of severe coughing. The patient reports the onset of respiratory illness approximately one week prior, with initial symptoms suggestive of influenza or COVID-19, followed by a diagnosis of COPD exacerbation and acute bronchitis. She received a course of antibiotics and prednisone starting last Thursday. Despite these interventions, the patient continues to experience a persistent cough that now coincides with severe lower back pain, unaffected by 800 mg of ibuprofen and continuous use of a heating pad. The pain radiates around to the sides of her back and does not worsen with palpation. She has no history of kidney stones. The patient is a smoker, currently attempting to reduce cigarette use. Past imaging includes a chest X-ray from [facility] urgent care, with no reported abnormalities. She also experiences increased cephalgia, potentially related to fluid present in her ear. There is no known allergy to penicillin. Physical Exam General: Cooperative, healthy appearing, comfortable and no acute distress Orientation/consciousness: Patient oriented x3 Limitations: Limited movement due to lower back pain Head: Normal to inspection Ears: Hearing grossly normal bilaterally, external ears normal and TM's normal bilaterally, still a little bit of blood back there Nose: Normal external nose present, Normal nares present and No nasal discharge present Face and sinus: Normal facial exam and Yes sinuses nontender Mouth: Normal oral and palatal mucosa present and moist mucous membranes Throat: Yes tonsils normal, Yes uvula midline. Posterior oropharynx erythema Eyes: Appearance normal, both eyes and all related structures Neck: Normal visual inspection Respiratory: Diminished and tight with wheezing, able to speak in complete sentences, Actively coughing, no respiratory distress, not tachypneic, no tripod positioning and no use of accessory muscles Cardiovascular: Regular rate and rhythm. Normal S1 and S2 Skin: No rashes or lesions noted Neuro: Patient oriented x3 Extremities: Normal to inspection and Yes no clubbing, cyanosis or edema [facility] Medical History Arthritis Nicotine dependence, cigarettes, uncomplicated Dyslipidemia Multiple adenomatous polyps Urinary incontinence Sleep apnea Osteoporosis (~2014) HLA B27 (HLA B27 positive) Palpitations COPD (chronic obstructive pulmonary disease) Depression, major, recurrent Surgical History History of colonoscopy History of foot surgery (~2018) History of vaginal surgery (~2005) History of eye surgery (~2013) History of spinal fusion (~2013) History of vaginal hysterectomy (~2003) History of laparoscopy (~2001) Family History Father CVD (cardiovascular disease) Mother Kidney failure CHF (congestive heart failure) Atherosclerosis Atherosclerotic peripheral vascular disease Foot ulcer CVD (cardiovascular disease) Sister History of heart attack Brother CVD (cardiovascular disease) HTN (hypertension) Maternal Grandfather Unknown family medical history Maternal Grandmother Unknown family medical history Paternal Grandmother Bladder cancer Paternal Grandfather History of CVA (cerebrovascular accident) Other Mental health disorder Social History Housing: House Alcohol intake: current Alcohol intake frequency: a few times a week Alcohol type: wine Patient Tobacco Use Status: Current everyday Tobacco user Tobacco use type: Cigarette Cigarette Packs Per Day: 0.5 Cigarettes Per Day: 10.0 Years Smoked: 40 e-Cigarette/Vaping Use: Never Used Second Hand Smoke Exposure: Yes Current occupational status: disabled Cognitive needs: No Hearing needs: No Vision needs: No Review of Systems Const All systems reviewed & are unremarkable except as noted in HPI and below Physical Exam Vital Signs: Last Vital Signs Pulse 78 10/13/24 13:50 BP 110/74 10/13/24 13:50 Pulse Ox 95 10/13/24 13:50 Oxygen Delivery Method Room Air 10/13/24 13:50 Assessment & Plan Assessment & Plan (1) Upper respiratory tract infection: Code(s): J06.9 - Acute upper respiratory infection, unspecified Plan: Acute Bronchitis: - Advise smoker to continue efforts in reducing smoking frequency to aid in respiratory recovery. (2) Back pain: Code(s): M54.9 - Dorsalgia, unspecified Qualifiers: Back pain location: low back pain Chronicity: acute Back pain laterality: bilateral Sciatica presence: without sciatica Qualified Code(s): M54.50 - Low back pain, unspecified Plan: Lower Back Pain: - Advise continued use of heating pad and monitor response to new medication. - Consider possibility of referred pain from respiratory issues. Monitor improvement with antibiotic and anti-inflammatory therapy. (3) COPD (chronic obstructive pulmonary disease): Code(s): J44.9 - Chronic obstructive pulmonary disease, unspecified Qualifiers: COPD type: COPD with acute lower respiratory infection Qualified Code(s): J44.0 - Chronic obstructive pulmonary disease with (acute) lower respiratory infection Plan: Plan 1. Chronic Obstructive Pulmonary Disease COPD exacerbation and Suspected Bacterial Pneumonia: - Initiate a course of Augmentin (amoxicillin-clavulanate) for suspected pneumonia, administered twice daily for seven days. - Obtain a follow-up chest X-ray to verify any pulmonary changes or presence of pneumonia. Plan Patient was informed and verbally consented to the use of an ambient scribe for clinic note documentation during this visit Orders: Orders XR chest 2V Today R05.9 - Cough, unspecified Medications: New amoxicillin-pot clavulanate 875-125 mg 1 tab PO Q12H 14 tabs 0RF diclofenac sodium 50 mg PO Q12H PRN 14 tabs 0RF pain Coding Level of Care Code Est Pt Level 4 (07036) Diagnoses Upper respiratory tract infection J06.9 Acute bilateral low back pain without sciatica M54.50 Back pain location: low back pain Chronicity: acute Back pain laterality: bilateral Sciatica presence: without sciatica Chronic obstructive pulmonary disease with acute lower respiratory infection J44.0 COPD type: COPD with acute lower respiratory infection
[2024-10-13 13:50] VITALS: BP 110/74; PULSE 78; O2SAT 95
--- OUTSIDE RECORDS SUMMARY | 2024-10-19 02:22 | XMS_ITS | Data Portability ---
Author Organization [employer] Address [address] [place] [id number] Care Team Providers Care Parachute/Combatant Diver Officer Name Role Phone HIM CCA OTHER Assessment Encounter Date Assessment Date Assessment LastModified by Organization Details LastModified Time 10/17/2024 10/17/2024 64 yo F with recent diagnosis of pneumonia (on pred and abx with improving respiratory sxs), reporting new onset low back pain iso cough. Pt doesn't normally have back pain. No increased SOB or CP. VS wnl. No med allergies or contraindication to NSAIDS. Will give IM toradol 30mg x 1. Pt can cont to use tylenol PRN and heating pads. FUP with PCP for ongoing pain management and PT referral. [email or web address] Not available 10/17/2024 14:12:30 Plan of Treatment Reminders Order Date Submit Date Provider Last Modified By Organization Details Last Modified Time Details Appointments None recorded. Lab None recorded. Referral None recorded. Procedures None recorded. Surgeries None recorded. Imaging None recorded. Medication Orders ketorolac 30 mg/mL injection solution 2023 024 [email or web address] Not available 12:33:00 Patient TargetsNo targets recorded. Patient InstructionsNo instructions recorded. Reason for Referral None Reported. Medical Equipment None Reported. Allergies No known drug allergies Medications Name Sig Start Date Stop Date Status Note LastModified by Organization Details LastModified Time azithromycin 250 mg tablet TAKE 2 TABLETS BY MOUTH TODAY, THEN TAKE 1 TABLET DAILY FOR 4 DAYS DIRECTED active Not Available Not Available No t Available benzonatate 200 mg capsule TAKE 1 CAPSULE (ORAL) 3 TIMES PER DAY (COUGH) FOR 7 DAYS active Not Available Not Available N ot Available prednisone 20 mg tablet PLEASE SEE ATTACHED FOR DETAILED DIRECTIONS active Not Available Not Available N ot Available trazodone 100 mg tablet TAKE 1 TABLET BY MOUTH EVERY DAY AT BEDTIME FOR 90 DAYS active Not Available Not Available No t Available dicyclomine 20 mg tablet TAKE 1 TABLET (ORAL) 3 TIMES PER DAY NEEDED FOR PAIN FOR 7 DAYS active Not Available Not Available No t Available diclofenac sodium 50 mg tablet,delay ed release TAKE 1 TABLET BY MOUTH EVERY 12 HOURS NEEDED FOR PAIN active Not Available Not Available No t Available albuterol sulfate HFA 90 mcg/actuatio n aerosol inhaler TAKE 2 PUFF (INHALATION ) EVERY 4 TO 6 HOURS (SHORTNESS OF BREATH OR WHEEZING) FOR 14 DAYS active Not Available Not Available Not Available paroxetine 40 mg tablet TAKR 1 TABLET BY MOUTH EVERY MORNING FOR 90 DAYS active Not Available Not Available No t Available amoxicillin 875 mg-potassium clavulanate 125 mg tablet TAKE 1 TABLET BY MOUTH EVERY 12 HOURS active Not Available Not Available No t Available azithromycin 500 mg tablet TAKE 1 TABLET EVERY DAY FOR 3 DAYS active Not Available Not Available N ot Available ezetimibe 10 mg tablet TAKE 1 TABLET BY MOUTH EVERY DAY active Not Available Not Available No t Available rosuvastatin 20 mg tablet TAKE 1 TABLET BY MOUTH EVERY DAY active Not Available Not Available No t Available chlorhexidin e gluconate 0.12 % mouthwash PLEASE SEE ATTACHED FOR DETAILED DIRECTIONS active Not Available Not Available N ot Available omega-3 fatty acids-fish oil 300 mg-1,000 mg capsule 1 CAP ORALLY DAILY FOR 90 DAYS active Not Available Not Available No t Available Vitals Date Recorded Heart rate Respiratory rate Body temperature Oxygen saturation Oxygen saturation in Arterial blood by Pulse oximetry Systolic blood pressure Diastolic blood pressure Provider Name and Address Organization Details Last Updated DateTime 4 90 /min 16 /min 97.8 [degF] 93 % 93 % 124 mm[Hg] 74 mm[Hg] Not Available [employer] - [employer] 4 12:31:58 Social History None recorded. Functional Status None recorded. Mental Status None recorded. Family History Nothing Reported. Medical History No medical history recorded. Gynecological HistoryNo gynecological history recorded. Obstetrics History GPAL:G 0 P 0 0 0 0 Past Encounters Encounter ID Performer Location Encounter Start Date Encounter Closed Date Diagnosis/Indication Diagnosis SNOMED-CT Code Diagnosis ICD10 Code [id number] MARQUEZ MCKINLEY MD [facility] [address] [place] [address] 10/17/2024 12:31:55 10/17/2024 14:30:58 Low back pain [id number] M54.50 Health Concerns Section Related Observation LastModified by Organization [employer] LastModified Time None Recorded Concern Status LastModified by Organization Details LastModified Time None Recorded Advance Directives Directive None Recorded Payers Encounter Date Sequence Insurance Name Policy Number Policy Martinez Covered Member ID Martinez Member ID Guarantor Name 10/17/2024 1 [facility] - DOS ON OR AFTER 2023 - DUAL ELIGIBLE - HALFWAY OPTIONS AND ONE CARE (MEDICARE REPLACEMENT/ADV ANTAGE - HMO) Olivia Stafford [id number] Olivia Stafford Notes Date Note Type Note Provider Name and Address Organization Details Recorded Time 10/17/2024 text/html HPI: Lipid disorder, insomnia, BL tinnitus, COPD, OA, idiopathic scoliosis, neck pain, Osteoporosis, hx. cervical spinal fusion, pain in left hip. .................. .................. .................. .................. .................. .................. .................. ............... [facility] Nurse Triage Notes (Jennifer Willingham): Chief Complaints: Back pain, Breathing problems, Cough, Common cold symptoms PMH: Osteoarthritis, COPD/Asthma, Depression, Chronic Pain, Cigarette Smoker Comments: An outreach was completed. Pt stated she has been having symptoms for 4 weeks. She had flu like symptoms. She then feels it turned into bronchitis. She went to Urgent care and had an xray as they felt like it was pneumonia. She was started on amoxi/ mari . She still has a few more days of medication. She does have back pain, but she is unsure if it is from the coughing. She is also on prednisone. She has a prod cough, clear in color. She denies any sob .................. .................. .................. .................. .................. .................. .................. ............... 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 Patient states over the last month treaters or the flu, bronchitis and is now being treated for pneumonia with Augmentin and prednisone. Patient was also on azithromycin two weeks ago. Patient states her URI symptoms seem to be improving she is left with this lingering back pain from all of the coughing. Patient has been taking Tylenol and ibuprofen mild relief. Patient denies any urinary symptoms, chest pain, shortness of breath, fevers, nausea, vomiting, diarrhea.Patient presents awake and alert, and no acute distress, speaking full sentences. Her vital signs are reasonably stable and she is afebrile. Nonfocal neurological exam normal gait. Lungs are clear throughout auscultation. Abdomen is soft, nontender, nondistended. No lower extremity edema.I treated this patient with Toradol 30 mg IM, right deltoid. I instructed her to hold NSAIDs until tomorrow morning, continue Tylenol. I also advised her to follow up with her primary care office and present to the emergency department for any new or worsening severe symptoms such as chest pain, severe shortness of breath, high fevers, loss of bowel or bladder function, altered mental status. Patient was given the opportunity to ask questions and is agreeable to this. .................. .................. .................. .................. .................. .................. .................. ............... [facility] [place]ed: Marquez Mckinley .................. .................. .................. .................. .................. .................. .................. ............... Disposition: Fulfilled MARQUEZ MCKINLEY MD [address] [facility],[address], [place], [id number], [id number] ESCOBAR 10/17/2024 14:12:38 OBGyn Episode No OBEpisode recorded.
--- OUTSIDE RECORDS SUMMARY | 2024-10-19 02:22 | XMS_ITS ---
Author Organization [facility] Address [address] [place] [address] Care Team Providers Care Revising Clerk Name Role Phone TRAV BOGGS Primary Care Provider Bulmaro Cali [phone] REASON FOR VISIT campbylobacter enteritis Encounters Encounter Location Date Provider Diagnosis [facility] [address] [place] [address] 05/10/2024 Bulmaro Montilla PLAN OF TREATMENT No Information
--- OUTSIDE RECORDS SUMMARY | 2024-10-19 02:22 | XMS_ITS | Patient Health Record ---
Author Organization [facility] Address [address] [place] [address] Care Team Providers Care Color Repairer Name Role Phone TRAV BOGGS Primary Care Provider Bulamro Cali [phone] REASON FOR REFERRAL No Information SOCIAL HISTORY Sex Assigned At : Social History Observation Description Sex Assigned At Unknown Encounters Encounter Location Date Provider Diagnosis [facility] [address] [facility] [address] [place] [address] 05/10/2024 Bulmaro Montilla PLAN OF TREATMENT No Information Insurance Providers Payer Name Payer Address Payer Phone Subscriber Number Group Number Insured Name Patient Relationship to Insured Coverage Start Date Coverage End Date [facility] [address] [place] [address] [id number] KAYLAN KEITA Self - patient is the insured
--- OUTSIDE RECORDS SUMMARY | 2024-10-19 02:22 | XMS_ITS | Continuity of Care Document ---
Author Organization [employer] Address [address] [place] [phone] Care Team Providers Care Haulage Boss Name Role Phone HIM CCA OTHER Assessment [...] for ongoing pain management and PT referral. [email or web address] Not available 10/17/2024 14:12:30 Plan of Treatment [...] % 124 mm[Hg] 74 mm[Hg] Not Available [employer] 4 12:31:58 Social History None recorded. Functional Status None recorded. Mental Status None recorded. Family History Nothing Reported. Medical History No medical history recorded. Gynecological HistoryNo gynecological history recorded. Obstetrics History GPAL:G 0 P 0 0 0 0 Past Encounters Encounter ID Performer Location Encounter Start Date Encounter Closed Date Diagnosis/Indication Diagnosis SNOMED-CT Code Diagnosis ICD10 Code [id number] MARQUEZ MCKINLEY MD [address] - [facility] [address] [place] [address] 10/17/2024 12:31:55 10/17/2024 14:30:58 Low back pain 632895731 M54.50 Health Concerns Section Related Observation LastModified by Organization Nena ls LastModified Time None Recorded Concern Status LastModified by Organization Details LastModified Time None Recorded Payers Encounter Date Sequence Insurance Name Policy Number Policy Martinez Covered Member ID Martinez Member ID Guarantor Name 10/17/2024 1 [facility] - DOS ON OR AFTER 2023 - DUAL ELIGIBLE - SNF OPTIONS AND ONE CARE (MEDICARE REPLACEMENT/ADV ANTAGE - HMO) Olivia Stafford [id number] Olivia Stafford Notes Date Note Type Note [...] .................. .................. .................. .................. .................. .................. ............... Clinical Operations Consultant Note From [employer]: This 64-year-old female [...] .................. .................. .................. .................. .................. .................. ............... [facility] Consulted: Marquez Mckinley .................. .................. .................. .................. .................. .................. .................. ............... Disposition: Fulfilled MARQUEZ MCKINLEY MD [address] [place] [address],[address] [facility], [place], [address], [employer] [facility] 10/17/2024 14:12:38 OBGyn Episode No OBEpisode recorded.
== END 2024-10-13 14:18 | disposition home or self-care (01) ==
LOC: HO.HMCWIC 13:19
PROVIDERS: PCP Nurse Practitioner Family; Visit Provider Physician Assistant
DX: J44.0 Chronic obstructive pulmonary disease with (acute) lower respiratory infection (principal); M54.50 Low back pain, unspecified

== ENCOUNTER 2024-10-24 10:51 | Emergency (ER) | payer OTHER, SELFPAY ==
--- NOTE | ~2024-10-24 | CT_ITS ---
EXAMINATION: CT ABDOMEN AND PELVIS WITHOUT CONTRAST CLINICAL INFORMATION: Abdominal pain COMPARISON: CT 01/30/2023 TECHNIQUE: Multidetector volumetric imaging was performed from the superior aspect of the liver through the pubic symphysis. Sagittal and coronal reformatted images were obtained on the technologist's workstation. This CT examination was performed using dose optimization techniques as appropriate, variously including the following: *Automated exposure control *Adjustment of mA and/or kV according to patient size (this includes techniques or standardized protocols for targeted exams where dose is matched to indication/reason for exam; i.e. extremities or head) *Use of iterative reconstruction technique DLP: 331 mGy-cm FINDINGS: LUNG BASES: Linear atelectasis/scarring in the left lower lung. LIVER, GALLBLADDER, AND BILIARY TREE: The liver is normal in size, shape, and attenuation. The previously seen small right lobe liver lesion, is not clearly evident on the noncontrast study. No focal hepatic lesion or biliary ductal dilatation is present. The gallbladder is unremarkable with no evidence of radiopaque gallstones, gallbladder wall thickening, or obvious pericholecystic inflammatory changes. PANCREAS: Unremarkable. SPLEEN: Unremarkable. ADRENAL GLANDS: Unremarkable. KIDNEYS AND URETERS: Right renal upper pole hypodense lesion, likely cyst, stable from previous. No renal lesions otherwise appreciated on the noncontrast study. No renal calculi. No significant perinephric stranding.. No hydroureteronephrosis. BLADDER: Partially distended, grossly unremarkable GASTROINTESTINAL TRACT: Stomach is partially distended limiting evaluation. No dilated small bowel loops. Small-moderate volume stool in the large colon. No pericolonic inflammatory changes. Appendix appears unremarkable. No free fluid. No free air. ABDOMINAL WALL: No significant hernia LYMPH NODES: No pathologically enlarged lymph nodes seen. VASCULAR: Atherosclerotic vascular calcification. PELVIC VISCERA: Unremarkable. OSSEOUS STRUCTURES: Multilevel degenerative changes in the spine. Severe L5-S1 degeneration. CT/CT abdomen pelvis wo IV con IMPRESSION: 1. Right renal cyst. No evidence of hydroureteronephrosis. No renal or ureteral calculi appreciated. No significant perinephric stranding. 2. No acute intra-abdominal findings otherwise appreciated. Fleischner guidelines were followed. Electronically signed by: Rad Lockwood MD 10/24/2024 02:55 PM EST
--- OUTSIDE RECORDS SUMMARY | 2024-10-24 10:56 | XMS_ITS | Patient Health Record ---
Author Organization [facility] Address [address] [place] [address] Care Team Providers Care Manager Lan Name Role Phone TRAV BOGGS Primary Care Provider Bulmaro Cali [phone] REASON FOR REFERRAL No Information SOCIAL HISTORY Sex Assigned At : Social History Observation Description Sex Assigned At Unknown Encounters Encounter Location Date Provider Diagnosis [facility] [address] [facility] [address] [place] [phone] 05/10/2024 Bulmaro Montilla PLAN OF TREATMENT No Information Insurance Providers Payer Name Payer Address Payer Phone Subscriber Number Group Number Insured Name Patient Relationship to Insured Coverage Start Date Coverage End Date [facility] [address] [place] [address] [id number] KAYLAN KEITA Self - patient is the insured
--- OUTSIDE RECORDS SUMMARY | 2024-10-24 10:56 | XMS_ITS | Continuity of Care Document ---
Author Organization [employer] Address [address] [place] [address] Care Team Providers Care Field Supervisor [employer] Production Name Role Phone HIM CCA OTHER TRAV BOGGS Primary Care Provider Assessment Encounter Date Assessment Date Assessment LastModified [...] for ongoing pain management and PT referral. [email or web address] Not available 10/17/2024 14:12:30 Plan of Treatment Reminders Order Date Submit Date Provider Last Modified By Organization Details Last Modified Time Details Appointments Urgent Care 2023 09:42A Qi BECKMAN MD Not available Not available Not available Lab None recorded. Referral None recorded. Procedures None recorded. Surgeries None recorded. Imaging None recorded. Medication Orders ketorolac 30 mg/mL injection solution 2023 024 [email or web address] Not available 10/17/2024 12:33:00 Patient TargetsNo targets recorded. Patient InstructionsNo [...] Not Available Not Available No t Available sodium chloride 0.9 % intravenous solution Inject 500 mL by intravenous route. 2023 active Not Available Not Available Not Avai lable albuterol sulfate HFA 90 mcg/actuatio n aerosol [...] Not Available Not Available No t Available ketorolac 30 mg/mL injection solution Inject 15 mg by intravenous route. 2023 active Not Available Not Available Not Avai lable Vitals Date Recorded Heart rate Respiratory rate Body temperature Oxygen saturation Oxygen saturation in Arterial blood by Pulse oximetry Systolic blood pressure Diastolic blood pressure Provider Name and Address Organization Details Last Updated DateTime 4 90 /min 16 /min 97.8 [degF] 93 % 93 % 124 mm[Hg] 74 mm[Hg] Not Available [facility] [employer] 4 12:31:58 Social History None recorded. Functional Status None recorded. Mental Status None recorded. Family History Nothing Reported. Medical History No medical history recorded. Gynecological HistoryNo gynecological history recorded. Obstetrics History GPAL:G 0 P 0 0 0 0 Past Encounters Encounter ID Performer Location Encounter Start Date Encounter Closed Date Diagnosis/Indication Diagnosis SNOMED-CT Code Diagnosis ICD10 Code [id number] LIEN MCKINLEY MD [address] [address] 10/17/2024 12:31:55 10/17/2024 14:30:58 Low back pain [id number] M54.50 Health Concerns Section Related Observation LastModified by Organization Detai ls LastModified Time None Recorded Concern Status LastModified by Organization Details LastModified Time None Recorded Payers Encounter Date Sequence Insurance Name Policy Number Policy Martinez Covered Member ID Martinez Member ID Guarantor Name 10/17/[address] [facility] - DOS ON OR AFTER 2023 - DUAL ELIGIBLE - SNF OPTIONS AND ONE CARE (MEDICARE REPLACEMENT/ADV ANTAGE - HMO) Olivia Nydia [id number] Olivia Stafford Notes Date Note Type Note [...] .................. .................. .................. .................. .................. .................. ............... Interpersonal Communications Professor Note From [employer] Brand: This 64-year-old female [...] .................. .................. .................. .................. .................. .................. ............... [facility] Consulted: Lien Mckinley .................. .................. .................. .................. .................. .................. .................. ............... Disposition: Fulfilled LIEN MCKINLEY MD [address] [facility],[address], [place], [address], [employer] 10/17/2024 14:12:38 OBGyn Episode No OBEpisode recorded.
--- OUTSIDE RECORDS SUMMARY | 2024-10-24 10:56 | XMS_ITS | Data Portability ---
Author Organization [employer] Address [address] [place] [address] Care Team Providers Care Flight Attendant/Inflight Supervisor Name Role Phone HIM CCA OTHER TRAV [...] for ongoing pain management and PT referral. [email or web address] Not available 10/17/2024 14:12:30 10/24/2024 10/24/2024 As noted, we heena e called to see this patient regarding concerns of bilateral flank pain. Evaluation in the field was performed by my training analyst colleague, as noted above, I provided real-time direction and supervision for this visit. The evaluation revealed a 64 year old female with a past medical history of Osteoarthritis, COPD/Asthma, Depression, Chronic Pain, Cigarette Smoker, Osteoporosis who presents with worsening bilateral flank pain that radiates into the Suprapubic region. This has been going on for four days. She denies any nausea, vomiting or diarrhea. She denies any diarrhea. . No shaking Chills. No chest pain no shortness of breath. She denies a history of kidney stones. The pain has become worse. On the physical exam by the training analyst the patient has clear lung sounds. She has left flank tenderness to palpation. She also has right flank tenderness to palpation however the left side hurts a lot more. Impression: Acute flank pain and abdominal pain possible kidney stone, hematuria Plan: 1) Check urine dipstick 2) check BMP 3) obtain IV access and give toradol 15 milligrams IV and normal saline bolus 500ML 4) the patients BMP was normal. Showing normal kidney function. The patient's urinalysis did show 3 plus blood. This is concerning for a possible kidney stone. Since the patient has worsening pain and has a possible kidney stone and is having suprapubic pain the patient was advised to go to the ER. The patient was stable for POV transfer. The patient's took her to the ER at [facility] 5) I called a quick report to the emergency medicine position on duty and discuss this patient with her Disposition to the ER We discussed the situation and I recommended referral to the emergency department. This was based on abdominal pain Not available 10/24/2024 10:48:11 Plan of Treatment Reminders Order Date Submit Date Provider Last Modified By Organization Details Last Modified Time Details Appointments Urgent Care 2023 09:42A M VINEET BECKMAN MD Not available Not available Not available Lab urinalysi s, dipstick [email or web address], [address], 10/24/2024 10:51:50 BMP, serum or plasma [address], [address], 10/24/2024 10:51:50 Referral None recorded. Procedures None recorded. Surgeries None recorded. Imaging None recorded. Medication Orders ketorolac 30 mg/mL injection solution 2023 024 [email or web address] Not available 10/17/2024 12:33:00 ketorolac 30 mg/mL injection solution 2023 024 [email or web address] [id number], [address] [place], [address], 10/24/2024 10:51:50 sodium chloride 0.9 % intraveno us solution 2023 024 [email or web address] [id number], [address] [place], [address], 10/24/2024 10:51:50 Patient TargetsNo targets recorded. Patient InstructionsNo instructions recorded. Reason for Referral None Reported. Results Created Date Observation Date Name Description Value Unit Range Abnormal Flag Note LastModifiedBy Organization Detail LastModifiedTime Result Notes None recorded. Medical Equipment None Reported. Allergies No known [...] and Address Organization Details Last Updated DateTime 90 /min 16 /min 97.8 [degF] 93 % 93 % 124 mm[Hg] 74 mm[Hg] Not Available [facility] 12:31:58 Date Recorded Oxygen saturation Oxygen saturation in Arterial blood by Pulse oximetry Heart rate Body temperature Respiratory rate Systolic blood pressure Diastolic blood pressure Provider Name and Address Organization Details Last Updated DateTime 98 % 98 % 88 /min 98.9 [degF] 16 /min 120 mm[Hg] 74 mm[Hg] Not Available [facility] [employer] 09:43:23 Social History None recorded. Functional Status None recorded. Mental Status None recorded. Family History Nothing Reported. Medical History No medical history recorded. Gynecological HistoryNo gynecological history recorded. Obstetrics History GPAL:G 0 P 0 0 0 0 Past Encounters Encounter ID Performer Location Encounter Start Date Encounter Closed Date Diagnosis/Indication Diagnosis SNOMED-CT Code Diagnosis ICD10 Code [id number] MARQUEZ MCKINLEY MD Main - [facility] [address] [place] [phone] 10/17/2024 12:31:55 10/17/2024 14:30:58 Low back pain 900098208 M54.50 [id number] VINEET BECKMAN MD Main - [facility] [address] [place] [phone] 10/24/2024 09:43:21 10/24/2024 10:53:50 Abdominal pain 92069371 R10.9 Left flank pain 05558025 9 R10.9 Right flank pain 2600087 09 R10.9 Blood in urine 52806215 R31.9 Health Concerns Section Related Observation LastModified by Organization Detai ls LastModified Time None Recorded Concern Status LastModified by Organization Details LastModified Time None Recorded Advance Directives Directive None Recorded Payers Encounter Date Sequence Insurance Name Policy Number Policy Martinez Covered Member ID Martinez Member ID Guarantor Name 10/17/2024 1 [facility] - DOS ON OR AFTER 2023 - DUAL ELIGIBLE - USP OPTIONS AND ONE CARE (MEDICARE REPLACEMENT/ADV ANTAGE - HMO) Olivia Stafford [id number] Olivia Stafford 10/24/2024 1 [facility] - DOS ON OR AFTER 2023 - DUAL ELIGIBLE - USP OPTIONS AND ONE CARE (MEDICARE REPLACEMENT/ADV ANTAGE - HMO) Olivia Stafford [id number] Olivia Stafford Notes Date Note Type Note Provider Name and Address Organization Details Recorded Time 10/17/2024 text/html HPI: Lipid disorder, insomnia, BL tinnitus, COPD, OA, idiopathic scoliosis, neck pain, Osteoporosis, hx. cervical spinal fusion, pain in left hip. .................... .................... .................... .................... .................... .................... .................... . [facility] Nurse Triage Notes (Jennifer Willingham): Chief [...] clear in color. She denies any sob .................... .................... .................... .................... .................... .................... .................... . Rubber Trimmer Note From [employer] Brand: This 64-year-old female with a history including but not limited to OA, COPD, scoliosis, depression/anxiety, HLD requested a visit today to address [...] ask questions and is agreeable to this. .................... .................... .................... .................... .................... .................... .................... . [facility] Consulted: Marquez Mckinley .................... .................... .................... .................... .................... .................... .................... . Disposition: Fulfilled MARQUEZ MCKINLEY MD [address] [place] [address],[address], [place], [address] [employer] 10/17/2024 14:12:38 10/24/2024 text/html [facility] Nurse Triage Notes (Nilam Mckay - RN): Reason For Request: Patient has lower back and Kidney pain. Also stomach pain. Denies: Unable to void greater than 5 hours Fall or trauma that results in urinary incontinence in the setting of pain Fall or injury that results in incontinence in the absence of pain Lower back pain either unilateral or bilateral, unable to void, painful urination -hematuria Chief Complaints: Abdominal pain PMH: Osteoarthritis, COPD/Asthma, Depression, Chronic Pain, Cigarette Smoker, Osteoporosis Comments: Patient reports lower back pain for the last 2 weeks. Developed bdominal pressure starting 4 days ago. Pain is constant, feels like a pressure. Denies fever/chills, dysuria, hematuria, N/V. Not recently treated for a UTI. Not currently taking any OTC meds for symptoms relief. Rubber Trimmer Organization Information for [employer] Legal Name: [facility] Address: [address] [place] [address] Laborer Ammunition Assembly: Abhay Larkin MD CLIA No.: [id number] Rubber Trimmer POC Test Results from [employer] [facility] (:46:34) pH: 7.38 pH units pCO2: 50.0 mmHg pO2: 10.7 mmHg Na: 140 mmol/L K: 4.3 mmol/L iCa: 1.20 mmol/L Cl: 100 mmol/L TCO2: 29.0 mEq/L Hct: 47 % Hb: 15.8 g/dL Glu: 143 mg/dL Lac: 1.69 mmol/L Cr: 0.76 mg/dL BUN: 21 mg/dL A Urine Dipstick (09:46:38) Urine leukocytes: - LANDEN Urine nitrites: - NIT Urine urobilinogen: - URO Urine protein: trace PRO Urine pH: 5.0 pH Urine blood: 3+ BLO Urine specific gravity: 1.020 SG Urine ketones: - KET Urine bilirubin: - TRELL Urine glucose: - GLU .................... .................... .................... .................... .................... .................... .................... . Rubber Trimmer Note From [employer] Brand: This 64-year-old female with a history including but not limited to OA, COPD, scoliosis, depression/anxiety, HLD requested a visit today to address ongoing lower back pain. I visited this patient one week ago for complaints of lower back pain that she believed was from coughing. I treated her with Toradol 30 mg IM. Patient states since the last visit she now has bilateral flank pain and suprapubic pain. Patient denies any chest pain, shortness of breath, dysuria, hematuria, fevers, nausea, vomiting, diarrhea.Patient presents awake and alert, in no acute distress. Her vital signs are reasonably stable and she is afebrile. Nonfocal neurological exam. Normal gait. Lungs are clear throughout auscultation. Abdomen is soft, nontender, nondistended. Left sided CVA tenderness. No lower extremity edema. Urine dip is not suggestive of infection, +3 blood. Unremarkable POC labs are uploaded.I treated this patient with lactated ringers 500 mL IV and Toradol 15 mg IVP. [facility] spoke directly to the patient and advised her that an ED eval is indicated to rule out a kidney stone. Patient is agreeable for an ED evaluation at [facility]. Patient would prefer to have her drive her right now. The patient was given the opportunity to ask questions and is agreeable to this plan. .................... .................... .................... .................... .................... .................... .................... . [facility] Consulted: Vineet Beckman .................... .................... .................... .................... .................... .................... .................... . Disposition: Fulfilled VINEET BECKMAN MD [address] [facility],[address], [place], [address], [facility] 10/24/2024 10:53:47 OBGyn Episode No OBEpisode recorded.
--- OUTSIDE RECORDS SUMMARY | 2024-10-24 10:56 | XMS_ITS ---
Author Organization [facility] Address [address] [place] [address] Care Team Providers Care Laundry Supervisor Name Role Phone TRAV BOGGS Primary Care Provider Bulmaro Cali [phone] REASON FOR VISIT campbylobacter enteritis Encounters Encounter Location Date Provider Diagnosis [facility] [address] [place] [address] 05/10/2024 Bulmaro Montilla PLAN OF TREATMENT No Information
[2024-10-24 11:10] VITALS: BP 132/75; PULSE 87; RESP 16; TEMP 36.4; O2SAT 97; BMI 25.7
--- NOTE | 2024-10-24 11:12 | ED_ITS ---
HPI - General Adult General Chief complaint: General Medical Stated complaint: kidney stone sent in by pcp Time Seen by Provider: 10/24/24 13:19 History of Present Illness ED Provider: Dr. Corona HPI narrative: 64 y/o F patient; PMH HLD, COPD; presents with report of left-sided flank pain radiating into her left-sided abdomen. She denies: nausea/vomiting, fever or chills, SOB, chest pain, cough/congestion, urinary symptoms. She denies known injuries. Related Data Home Medications ?Medication ?Instructions ?Recorded ?Confirmed multivitamin (Daily Multi-Vitamin 1 tab PO DAILY 09/20/21 08/31/23 tablet) vitamin A 2,400 mcg capsule 2,400 mcg PO DAILY 08/26/22 08/31/23 glucosamine 750 mg-chondroit 100 tab PO 08/31/23 08/31/23 mg-msm-D3 25 ctz-ufgw-dir bor tablet Previous Rx's ?Medication ?Instructions ?Recorded omega 7-ohl-lya-fish oil 300 1 cap PO DAILY 90 days #90 caps 04/15/24 mg-1,000 mg capsule (Fish Oil) ezetimibe 10 mg tablet (Zetia) 10 mg PO DAILY 90 days #90 tabs 05/30/24 paroxetine HCl 40 mg tablet 40 mg PO QAM 90 days #90 tabs 09/19/24 trazodone 100 mg tablet 100 mg PO BEDTIME 90 days #90 tabs 09/19/24 rosuvastatin 20 mg tablet 20 mg PO DAILY #90 tabs 09/23/24 azithromycin 250 mg tablet See Rx Instructions PO .COMPLEX #6 10/08/24 tabs prednisone 20 mg tablet 60 mg (3 x 20 mg) PO DAILY 3 days 10/08/24 #30 tabs amoxicillin 875 mg-potassium 1 tab PO Q12H #14 tabs 10/13/24 clavulanate 125 mg tablet diclofenac sodium 50 mg 50 mg PO Q12H PRN pain #14 tabs 10/13/24 tablet,delayed release fluticasone fur. 100 mcg-umeclid 1 inh inhalation DAILY #60 ea 10/21/24 62.5 mcg-vilant 25 mcg inhalat.powder (Trelegy Ellipta) Allergies Allergy/AdvReac Type Severity Reaction Status Date / Time buspirone AdvReac Intermediate vomiting Verified 10/24/24 11:12 varenicline [From Chantix] AdvReac Intermediate Mood Verified 10/24/24 11:12 changes, anger Wellbutrin AdvReac Intermediate vomiting Uncoded 10/08/24 09:07 Review of Systems 2 Review of Systems: Yes all other systems are reviewed and are negative [facility] Past Medical History Attestation statement: The following information was validated with the patient. Source: old records reviewed Medical History Arthritis Nicotine dependence, cigarettes, uncomplicated Dyslipidemia Multiple adenomatous polyps Urinary incontinence Sleep apnea Osteoporosis (~2014) HLA B27 (HLA B27 positive) Palpitations COPD (chronic obstructive pulmonary disease) Depression, major, recurrent Surgical History History of colonoscopy History of foot surgery (~2018) History of vaginal surgery (~2005) History of eye surgery (~2013) History of spinal fusion (~2013) History of vaginal hysterectomy (~2003) History of laparoscopy (~2001) Family History Family History Father CVD (cardiovascular disease) Mother Kidney failure CHF (congestive heart failure) Atherosclerosis Atherosclerotic peripheral vascular disease Foot ulcer CVD (cardiovascular disease) Sister History of heart attack Brother CVD (cardiovascular disease) HTN (hypertension) Maternal Grandfather Unknown family medical history Maternal Grandmother Unknown family medical history Paternal Grandmother Bladder cancer Paternal Grandfather History of CVA (cerebrovascular accident) Other Mental health disorder Social History Social History Housing: House Alcohol intake: current Alcohol intake frequency: a few times a week Alcohol type: wine Patient Tobacco Use Status: Current everyday Tobacco user Tobacco use type: Cigarette Cigarette Packs Per Day: 0.5 Cigarettes Per Day: 10.0 Years Smoked: 40 Smoked in Last 30 Days: Yes e-Cigarette/Vaping Use: Never Used Second Hand Smoke Exposure: Yes Use of substances other than those prescribed or required for medical reasons: No Advance Directives: No Advance Directives Information Provided: Yes Do you have a plan to hurt others: No Plan Current occupational status: disabled Cognitive needs: No Hearing needs: No Vision needs: No Physical Exam ED Vital Signs: Vital Signs - 24 hr 10/24/24 11:10 Temperature 97.6 F Pulse Rate 87 Respiratory Rate 16 Blood Pressure 132/75 Pulse Oximetry 97 Oxygen Delivery Method Room Air BMI result Body Mass Index 25.7 Patient is afebrile and hemodynamically stable. Const General: cooperative Orientation/consciousness: patient oriented x3 [facility] Head: Yes normal to inspection and Yes atraumatic Eyes General: appearance normal, both eyes and all related structures Neck Neck: Yes normal visual inspection and Yes supple Chest Chest palpation & inspection: normal inspection of the chest and normal palpation of entire chest wall Resp Effort & Inspection: normal respiratory effort, able to speak in complete sentences, no cough and no respiratory distress Auscultation: clear to auscultation bilaterally Cardio Rate: regular rate Rhythm: regular rhythm Peripheral pulses: Peripheral pulses 2+ throughout GI Inspection: No Abdominal wall edema and No distended Palpation (GI): Soft to palpation, not firm, nontender, no guarding and not rigid Auscultation: normal bowel sounds Back/Spine/Pelvis Back: No back tenderness Neuro General: patient oriented x3 Course Course Course Narrative: This is an RME: Additional HPI, ROS, PE not included below will be deferred to primary provider. RME assessment and note performed by: Sarai Julien PA-C This is a 54-ahnv-zzn-female, with a hx of COPD, who presents to the ER with complaints of left sided flank pain x 4 days. Denies any urinary symptoms. No nausea or vomiting. Was given a medication at home by a CCA which provided her without relief. No injury or trauma due to back. No heavy lifting. Reports she recently had a cough. Plan: labs, ua, ct abd/pelvis, ua Reevaluation(s) Reevaluation #1: Patient is afebrile and hemodynamically stable. Reviewed triage initiated work up. Leukocytosis 14.5k. UA with 2+ blood. Patient eloped from the emergency department prior to result of CT imaging. Medical Decision Making Lab Data 10/24/24 11:38 10/24/24 11:38 Labs: Lab Results 10/24/24 10/24/24 Range/Units 11:38 11:42 WBC 14.5 H (4.8-10.8) X10*3/uL RBC 4.21 (4.20-5.50) X10*6/uL Hgb 13.3 (12.0-16.0) g/dl Hct 39.6 (37.0-47.0) % MCV 94.1 (80.0-98.0) fL MCH 31.6 (27.0-33.0) pg MCHC 33.6 (31.0-35.0) g/dl RDW 12.4 (11.0-16.0) % Plt Count 233 (160-400) X10*3/uL MPV 9.6 (9.4-12.3) fL Immature Gran % (Auto) 0.4 (0.0-0.4) % Neut % (Auto) 87.5 H (45-73) % Lymph % (Auto) 8.8 L (20-40) % Dix[place] % (Auto) 3.2 (2-11) % Eos % (Auto) 0.0 (0-4) % Baso % (Auto) 0.1 (0-2) % Lymph # (Auto) 1.3 (1.2-4.9) X10*3/uL [place] # (Auto) 0.5 (0.1-1.2) X10*3/uL Eos # (Auto) 0.0 (0.0-0.4) X10*3/uL Baso # (Auto) 0.0 (0.0-0.2) X10*3/uL Abs Immat Gran (auto) 0.06 H (0.00-0.03) X10*3/uL Absolute Neuts (auto) 12.7 H (2.0-8.3) x10*3/uL Absolute Nucleated RBC 0.000 (0.0-0.012) X10*3/uL Nucleated RBC % (auto) 0.0 (0.0-0.2) /100WBC Sodium 138 (135-145) mmol/L Potassium 5.3 H D (3.3-5.1) mmol/L Chloride 106 (96-108) mmol/L Carbon Dioxide 27 (22-29) mmol/L Anion Gap 10 L (12-20) BUN 17 H (9-16) mg/dL Creatinine 0.81 (0.5-1.4) mg/dL Estim Creat Clear Calc 68.2 Estimated GFR > 60 Random Glucose 121 H (60-115) mg/dL Calcium 8.8 D (8.4-10.2) mg/dL Magnesium 2.2 (1.6-2.6) mg/dL Total Bilirubin 1.0 (0.0-1.0) mg/dL Direct Bilirubin 0.3 (0.0-0.5) mg/dL AST 29 (5-31) U/L ALT 66 H (0-31) U/L Alkaline Phosphatase 81 (39-117) U/L Total Protein 6.5 (6.5-8.0) g/dL Albumin 3.9 (3.5-5.0) g/dL Lipase 42 (8-78) U/L Urine Color Yellow Urine Appearance Clear Urine pH 5.0 (5.0-9.0) Ur Specific [place] 1.020 (1.005-1.025) Urine Protein Negative (Neg-Trace) mg/dL Urine Glucose (UA) Negative (Negative) mg/dL Urine Ketones Negative (Negative) mg/dL Urine Blood Moderate (2+) H (Negative) Urine Nitrite Negative (Negative) Ur Leukocyte Esterase Negative (Negative) Urine RBC 3-5 H (0-2) /HPF Urine WBC 0-5 (0-5) /HPF Ur Squamous Epith Cells 0-2 (0-2) /HPF Urine Bacteria None Seen (None Seen) Hyaline Casts 0-2 (0-2) /LPF Influenza Type A (PCR) NEGATIVE (Negative) Influenza Type B (PCR) NEGATIVE (Negative) RSV RNA Qual (PCR) NEGATIVE (Negative) SARS-CoV-2 RNA (RT-PCR) NEGATIVE (Negative) Discharge Plan Discharge Clinical Impression: Abdominal pain Patient Disposition: Elopement Prescriptions: No Action omega 1-msh-hjx-fish oil [Fish Oil] 300-1,000 mg capsule 1 cap PO DAILY 90 Days Qty: 90 1RF ezetimibe [Zetia] 10 mg tablet 10 mg PO DAILY 90 Days Qty: 90 1RF trazodone 100 mg tablet 100 mg PO BEDTIME 90 Days Qty: 90 1RF paroxetine HCl 40 mg tablet 40 mg PO QAM 90 Days Qty: 90 1RF rosuvastatin 20 mg tablet 20 mg PO DAILY Qty: 90 1RF Trelegy Ellipta 100-62.5-25 mcg blister with device 1 inh inhalation DAILY Qty: 60 0RF multivitamin [Daily Multi-Vitamin] Tablet 1 tab PO DAILY vitamin A 2,400 mcg capsule 2,400 mcg PO DAILY sdcd-edmwa-vqx-D3-hyal-elsy bor 750 mg-100 mg- 25 mcg tablet PO naproxen 500 mg tablet 500 mg PO ONCE Qty: 1 0RF lidocaine HCl 2 % jelly in applicator 10 ml intra-urethral ONCE Qty: 10 0RF amoxicillin-pot clavulanate 875-125 mg tablet 1 tab PO Q12H Qty: 14 0RF diclofenac sodium 50 mg tablet,delayed release (DR/EC) 50 mg PO Q12H PRN (Reason: pain) Qty: 14 0RF azithromycin 250 mg tablet See Rx Instructions PO .COMPLEX Qty: 6 0RF Rx Instructions: take 500 mg today (day 1), then 250 mg for 4 days (days 2-5) PO prednisone 20 mg tablet 60 mg PO DAILY 3 Days Qty: 30 0RF Rx Instructions: then take 2 and half tabs daily for 3 days, then take 2 tabs daily for 3 days, then take 1 and half tabs daily for 3 days, and then take 1 tab daily for 3 days Stand Alone Forms: Against Medical Advice Print Language: Kinyarwanda
[2024-10-24 11:46] LABS: MANUAL DIFF FLAG NO
[2024-10-24 11:48] LABS: Appearance Urine Clear; Color Urine Yellow; Glucose Urine UA Negative (Negative); Leukocyte Esterase Urine Negative (Negative); Nitrite Urine Negative (Negative); UMIC TRIGGER UACC YES; Urine Blood Moderate (2+) (Negative); Urine Ketones Negative (Negative); Urine Protein Negative (Neg-Trace)
[2024-10-24 11:50] LABS: Basophils Percent Auto 0.1 % (0-2); Hematocrit 39.6 % (37.0-47.0); Hemoglobin 13.3 g/dl (12.0-16.0); Imm Gran Abs Auto 0.06 X10*3/uL (0.00-0.03); Imm Gran Pct Auto 0.4 % (0.0-0.4); Lymphocytes Absolute Auto 1.3 X10*3/uL (1.2-4.9); Lymphocytes Percent Auto 8.8 % (20-40); Mean Corpuscular HGB Conc 33.6 g/dl (31.0-35.0); Mean Corpuscular Hemoglobin 31.6 pg (27.0-33.0); Mean Corpuscular Volume 94.1 fL (80.0-98.0); Mean Platelet Volume 9.6 fL (9.4-12.3); Monocytes Absolute Auto 0.5 X10*3/uL (0.1-1.2); Monocytes Percent Auto 3.2 % (2-11); Neutrophils Absolute Auto 12.7 x10*3/uL (2.0-8.3); Neutrophils Percent Auto 87.5 % (45-73); Platelet Count 233 X10*3/uL (160-400); Red Blood Count 4.21 X10*6/uL (4.20-5.50); Red Cell Distribution Width 12.4 % (11.0-16.0); White Blood Count 14.5 X10*3/uL (4.8-10.8)
[2024-10-24 11:57] LABS: Bacteria Urine None Seen (None Seen); Hyaline Casts Urine 0-2 /LPF (0-2); Squamous Epithelial Cell Urine 0-2 /HPF (0-2); WBC Urine 0-5 /HPF (0-5)
[2024-10-24 12:04] LABS: Alanine Aminotransferase 66 U/L (0-31); Albumin Level 3.9 g/dL (3.5-5.0); Alkaline Phosphatase 81 U/L (39-117); Anion Gap 10 (12-20); Aspartate Amino Transferase 29 U/L (5-31); Bilirubin Direct 0.3 mg/dL (0.0-0.5); Blood Urea Nitrogen 17 mg/dL (9-16); Calcium 8.8 mg/dL (8.4-10.2); Carbon Dioxide 27 mmol/L (22-29); Chloride 106 mmol/L (96-108); Creatinine Clr Calc Pharmacy 68.2; Estimated Glomerular Filt Rate > 60; Glucose Random 121 mg/dL (60-115); Lipase 42 U/L (8-78); Magnesium 2.2 mg/dL (1.6-2.6); Potassium 5.3 mmol/L (3.3-5.1); Sodium 138 mmol/L (135-145); Total Protein 6.5 g/dL (6.5-8.0)
[2024-10-24 12:44] LABS: Influenza A PCR NEGATIVE (Negative); Influenza B PCR NEGATIVE (Negative); Resp Syncy Virus RNA Qual PCR NEGATIVE (Negative); SARS COV2 PCR INHOUSE NEGATIVE (Negative)
--- OUTSIDE RECORDS SUMMARY | 2024-10-24 13:23 | XMS_ITS | Continuity of Care Document ---
Author Organization [facility] Address [address] [place] [address] Care Team Providers Care Home Care Attendant Name Role Phone HIM CCA OTHER TRAV BOGGS Primary Care Provider Assessment Encounter Date Assessment Date Assessment LastModified by Organization Details LastModified Time 10/24/2024 10/24/2024 As noted, we were called to see this patient regarding concerns of bilateral flank pain. Evaluation in the field was performed by my central station operator colleague, as noted above, I provided real-time [...] worse. On the physical exam by the central station operator the patient has clear lung sounds. She [...] patient's took her to the ER at [facility] 5) I called a quick report to the emergency medicine position on duty and discuss this patient with her Disposition to the ER We discussed the situation and I recommended referral to the emergency department. This was based on abdominal pain [email or web address] Not available 10/24/2024 10:48:11 Plan of Treatment Reminders Order Date Submit Date Provider Last Modified By Organization Details Last Modified Time Details Appointments Urgent Care 2023 09:42A M VINEET BECKMAN MD Not available Not available Not available Lab urinalysi s, dipstick 2023 [email or web address] [facility], [address] [place] [address], [phone], 10/24/2024 10:51:50 BMP, serum or plasma 2023 [email or web address] [facility], [address] [place] [address], [phone], 10/24/2024 10:51:50 Referral None recorded. Procedures None recorded. Surgeries None recorded. Imaging None recorded. Medication Orders ketorolac 30 mg/mL injection solution [id number], [address] [place], [address], 10/24/2024 10:51:50 sodium chloride 0.9 % intraveno us solution 2023 [email or web address] [id number], [address] [place], [address], 10/24/2024 10:51:50 Patient TargetsNo targets recorded. Patient [...] Available Not Avai lable Vitals Date Recorded Oxygen saturation Oxygen saturation in Arterial blood by Pulse oximetry Heart rate Body temperature Respiratory rate Systolic blood pressure Diastolic blood pressure Provider Name and Address Organization Details Last Updated DateTime 4 98 % 98 % 88 /min 98.9 [degF] 16 /min 120 mm[Hg] 74 mm[Hg] Not Available [facility] - production 4 09:43:23 Social History None recorded. Functional Status None recorded. Mental Status None recorded. Family History Nothing Reported. Medical History No medical history recorded. Gynecological HistoryNo gynecological history recorded. Obstetrics History GPAL:G 0 P 0 0 0 0 Past Encounters Encounter ID Performer Location Encounter Start Date Encounter Closed Date Diagnosis/Indication Diagnosis SNOMED-CT Code Diagnosis ICD10 Code [id number] MARQUEZ MCKINLEY MD Main - [address] [id number] 10/17/2024 12:31:55 10/17/2024 14:30:58 Low back pain 290239183 M54.50 [id number] VINEET BECKMAN MD [facility] - [facility] [address] [place] [id number] 10/24/2024 09:43:21 10/24/2024 11:55:37 Abdominal pain 14854945 R10.9 Left flank pain 21841047 9 R10.9 Right flank pain 5464941 09 R10.9 Blood in urine 40327957 R31.9 Health Concerns Section Related Observation LastModified by Organization Detai ls LastModified Time None Recorded Concern Status LastModified by Organization Details LastModified Time None Recorded Payers Encounter Date Sequence Insurance Name Policy Number Policy Martinez Covered Member ID Martinez Member ID Guarantor Name 10/24/2024 1 [facility] - DOS ON OR AFTER 2023 - DUAL ELIGIBLE - [employer] OPTIONS AND ONE CARE (MEDICARE REPLACEMENT/ADV ANTAGE - HMO) Olivia Nydia [id number] Olivia Nydia Notes Date Note Type Note Provider Name and Address Organization Details Recorded Time 10/24/2024 text/html CRC Nurse Triage Notes (Nilam [...] taking any OTC meds for symptoms relief. Malariologist Organization Information for [facility] [facility] Business Legal Name: [facility] Transportation Address: [address] [place] [address], [place] [address], Staff Occupational Therapist: Abhay GARCIA No.: [id number] Malariologist POC Test Results from [facility] (09:46:34) pH: 7.38 pH units pCO2: 50.0 mmHg [...] .................... .................... .................... .................... .................... .................... . Malariologist Note From [facility]: This 64-year-old female [...] mL IV and Toradol 15 mg IVP. [facility] spoke directly to the patient and advised her that an ED eval is indicated to rule out a kidney stone. Patient is agreeable for an ED evaluation at [facility]. Patient would prefer to have her drive her right now. The patient was given the opportunity to ask questions and is agreeable to this plan. .................... .................... .................... .................... .................... .................... .................... . [facility] Consulted: Vineet Beckman .................... .................... .................... .................... .................... .................... .................... . Disposition: Jamir BECKMAN MD [address] [facility],[address], [place], [address], [place] - Re-[employer] 10/24/2024 10:53:47 OBGyn Episode No OBEpisode recorded.
--- NOTE | 2024-10-24 14:07 | PC.NURSE ---
pt flagged this RN down to state that she wanted her nurse because she wants to leave. this RN informed pt that she was waiting for the results of her CT result. pt stated that was taken hours ago . informed the PT that sometimes the read of the CT can take several hours pt proceeded to walk out of the room stating this is crazy, I want to leave I'm not waiting . informed MD Corona of this, plan for MD Corona to speak with pt and have her sign out AMA
[2024-10-24 14:19] VITALS: BP 132/75; PULSE 87; RESP 16; TEMP 36.4; O2SAT 97
--- NOTE | 2024-10-24 14:22 | PC.NURSE ---
Patient elected to leave before CT scans resulted, spoke with multiple RNs and provider Dr. Corona about risk of leaving which included, but are not limited to , patient verbalized understanding. Patient observed walking out of department w/ a steady gait. Refused DC vitals.
== END 2024-10-24 14:21 | disposition left against medical advice (07) ==
PROVIDERS: Physician Assistant Medical; Emergency Provider Emergency Medicine; PCP Nurse Practitioner Family
DX: R10.2 Pelvic and perineal pain (principal); Z03.818 Encounter for observation for suspected exposure to other biological agents ruled out; Z79.899 Other long term (current) drug therapy; F17.210 Nicotine dependence, cigarettes, uncomplicated
CPT/HCPCS: 0241U; 74176; 80048; 80076; 81001; 83690; 83735; 85025; 99284

== ENCOUNTER 2024-10-26 15:32 | Emergency (ER) | payer OTHER, SELFPAY ==
--- NOTE | ~2024-10-26 | CT_ITS ---
EXAMINATION: CT ABDOMEN AND PELVIS WITH CONTRAST CLINICAL INFORMATION: Lower abdominal pain COMPARISON: 10/24/2024 TECHNIQUE: Multidetector volumetric images were obtained from the superior aspect of the liver through the pubic symphysis following administration 85 mL of Omnipaque 350 intravenous contrast. Sagittal and coronal reformatted images were obtained on the technologist's workstation. Oral contrast: No This CT examination was performed using dose optimization techniques as appropriate, variously including the following: *Automated exposure control *Adjustment of mA and/or kV according to patient size (this includes techniques or standardized protocols for targeted exams where dose is matched to indication/reason for exam; i.e. extremities or head) *Use of iterative reconstruction technique DLP: 335 mGy-cm FINDINGS: LUNG BASES: Unremarkable. ABDOMINAL AND PELVIC WALL: Unremarkable. LIVER AND BILIARY TREE: Unremarkable. GALLBLADDER: Unremarkable. PANCREAS: Unremarkable. SPLEEN: Unremarkable. ADRENAL GLANDS: Unremarkable. KIDNEYS AND URETERS: Benign-appearing right renal cyst. Followup imaging is not routinely recommended for benign appearing cysts. GASTROINTESTINAL TRACT: Unremarkable. Appendix is within normal limits. VASCULAR: Aortic atherosclerotic calcifications, no aneurysmal dialation. LYMPH NODES/PERITONEUM: No lymphadenopathy. FREE FLUID: None. BLADDER: Unremarkable. PELVIC VISCERA: Unremarkable. OSSEOUS STRUCTURES: Degenerative changes of the spine. CT/CT abdomen pelvis w IV con IMPRESSION: No acute intra-abdominal abnormality. Electronically signed by: Parvin Dewitt MD 10/26/2024 07:29 PM [facility]
[2024-10-26 15:41] VITALS: BP 133/58; BP 140/80; PULSE 73; PULSE 80; RESP 18; TEMP 36.7; O2SAT 100; O2SAT 97; BMI 22.9
--- NOTE | 2024-10-26 16:03 | ECG_ITS ---
Test Reason : ABD PAIN Blood Pressure : / mmHG Vent. Rate : 069 BPM Atrial Rate : 069 BPM P-R Int : 144 ms QRS Dur : 080 ms QT Int : 382 ms P-R-T Axes : 059 049 062 degrees QTc Int : 409 ms Normal sinus rhythm Normal ECG When compared with ECG of 24-NOV-2017 17:00, T wave inversion less evident in Anterior leads Referred By: Carline Burnham Electronically Signed By:JOHN JOHN
--- NOTE | 2024-10-26 16:08 | ED.ABDPAIN ---
HPI - Abdominal Pain General Chief Complaint: Back Pain/Injury Stated Complaint: R SIDED LOWER BACK PAIN Time Seen by Provider: 10/26/24 15:55 Source: patient, family and old records reviewed Mode of arrival: ambulatory Limitations: no limitations History of Present Illness ED Provider: THOMAS GONZALEZ narrative: 64 yo female with PMH Of COPD, arthritis, prior back pain, depression, HLD, not on thinners and no IVDA was seen here 10/[address] for [address] pain had CT scan but LWCT - CT scan UA and kidney function no cause for the pain. Her WBC count was slightly elevated to 14. She notes her pain will not go away it radiates low back low abdominal pain with pain then up in her kidneys. There has not been b/b incontinence or saddle anesthesia. No fevers, no n/v/d or dysuria. She notes it hurts to move but her stomach hurts as well and will not go away. Pain x 1 week. Did have recent viral infection and was coughing unclear if that could have been triggering MD elicited complaint: abdominal pain and flank pain Pertinent past history: none Onset (ago): week(s) (1) Pain Consistency: constant Location: L flank, R flank and suprapubic Severity: moderate Quality: aching Radiation: bilateral flank Migration to: no migration Exacerbating factors: movement Relieving factors: nothing Associated symptoms: denies other symptoms Treatments prior to arrival: NSAIDs Related Data Home Medications ?Medication ?Instructions ?Recorded ?Confirmed multivitamin (Daily Multi-Vitamin 1 tab PO DAILY 09/20/21 08/31/23 tablet) vitamin A 2,400 mcg capsule 2,400 mcg PO DAILY 08/26/22 08/31/23 glucosamine 750 mg-chondroit 100 tab PO 08/31/23 08/31/23 mg-msm-D3 25 mqz-xfqq-kuw bor tablet Previous Rx's ?Medication ?Instructions ?Recorded omega 4-nfy-qus-fish oil 300 1 cap PO DAILY 90 days #90 caps 04/15/24 mg-1,000 mg capsule (Fish Oil) ezetimibe 10 mg tablet (Zetia) 10 mg PO DAILY 90 days #90 tabs 05/30/24 paroxetine HCl 40 mg tablet 40 mg PO QAM 90 days #90 tabs 09/19/24 trazodone 100 mg tablet 100 mg PO BEDTIME 90 days #90 tabs 09/19/24 rosuvastatin 20 mg tablet 20 mg PO DAILY #90 tabs 09/23/24 azithromycin 250 mg tablet See Rx Instructions PO .COMPLEX #6 10/08/24 tabs prednisone 20 mg tablet 60 mg (3 x 20 mg) PO DAILY 3 days 10/08/24 #30 tabs amoxicillin 875 mg-potassium 1 tab PO Q12H #14 tabs 10/13/24 clavulanate 125 mg tablet diclofenac sodium 50 mg 50 mg PO Q12H PRN pain #14 tabs 10/13/24 tablet,delayed release fluticasone fur. 100 mcg-umeclid 1 inh inhalation DAILY #60 ea 10/21/24 62.5 mcg-vilant 25 mcg inhalat.powder (Trelegy Ellipta) cyclobenzaprine 10 mg tablet 10 mg PO TID PRN muscle spasm #20 10/26/24 tabs lidocaine 5 % topical patch 1 patch topical DAILY #30 ea 10/26/24 Allergies Allergy/AdvReac Type Severity Reaction Status Date / Time buspirone AdvReac Intermediate vomiting Verified 10/26/24 15:44 varenicline [From Chantix] AdvReac Intermediate Mood Verified 10/26/24 15:44 changes, anger Wellbutrin AdvReac Intermediate vomiting Uncoded 10/08/24 09:07 Review of Systems Review of Systems Constitutional : No Weight loss, No Fever, No Chills, ENT/Mouth : No Hearing loss, No Ear Pain, No Nasal Congestion, No Sinus Pain, No Hoarseness, No sore throat, No Rhinorrhea, No Swallowing Difficulty Cardiovascular : No Chest Pain, No SOB Respiratory : No Cough, No Dyspnea Gastrointestinal : No Nausea, No Vomiting, No Diarrhea, pos abdominal Pain, No Hematochezia, No Melena Genitourinary : No Dysuria, No Urinary Frequency, No Hematuria, No Urinary Incontinence, Musculoskeletal : positive back pain Skin : No Skin Lesions, No rash Neuro : No Weakness, No Numbness, No Paresthesias, no loss of bowel or bladder incontinence, no saddle anesthesia All other systems reviewed and are negative [facility] Past Medical History Attestation statement: The following information was validated with the patient. Source: old records reviewed Medical History Arthritis Nicotine dependence, cigarettes, uncomplicated Dyslipidemia Multiple adenomatous polyps Urinary incontinence Sleep apnea Osteoporosis (~2014) HLA B27 (HLA B27 positive) Palpitations COPD (chronic obstructive pulmonary disease) Depression, major, recurrent Surgical History History of colonoscopy History of foot surgery (~2018) History of vaginal surgery (~2005) History of eye surgery (~2013) History of spinal fusion (~2013) History of vaginal hysterectomy (~2003) History of laparoscopy (~2001) Family History Family History Father CVD (cardiovascular disease) Mother Kidney failure CHF (congestive heart failure) Atherosclerosis Atherosclerotic peripheral vascular disease Foot ulcer CVD (cardiovascular disease) Sister History of heart attack Brother CVD (cardiovascular disease) HTN (hypertension) Maternal Grandfather Unknown family medical history Maternal Grandmother Unknown family medical history Paternal Grandmother Bladder cancer Paternal Grandfather History of CVA (cerebrovascular accident) Other Mental health disorder Social History Social History Housing: House Alcohol intake: current Alcohol intake frequency: a few times a week Alcohol type: wine Patient Tobacco Use Status: Current everyday Tobacco user Tobacco use type: Cigarette Cigarette Packs Per Day: 0.5 Cigarettes Per Day: 10.0 Years Smoked: 40 e-Cigarette/Vaping Use: Never Used Second Hand Smoke Exposure: Yes Advance Directives: No Advance Directives Information Provided: No Current occupational status: disabled Cognitive needs: No Hearing needs: No Vision needs: No Physical Exam ED Vital Signs: Vital Signs - 24 hr 10/26/24 15:41 10/26/24 18:29 Temperature 98.1 F 97.2 F Pulse Rate 73 62 Respiratory Rate 18 14 Blood Pressure 133/58 L 148/69 H Pulse Oximetry 100 97 Oxygen Delivery Method Room Air Room Air BMI result Body Mass Index 22.9 Appearance: Alert. Oriented X3. No acute distress. Eyes: Pupils equal, round and reactive to light. ENT: Pharynx normal. Neck: Normal inspection. Neck supple. CVS: Normal heart rate and rhythm. Pulses normal. Respiratory: No respiratory distress. Breath sounds normal. Abdomen: Soft and moderate suprapubic ttp with no rebound or guarding Back: bilateral paraspinal in lumbar but also bilateral CVA ttp Skin: Skin warm and dry. Normal skin color. Normal skin turgor. Extremities: No lower extremity edema. Neuro: Oriented X 3. No motor deficit. No sensory deficit. L5 5/5 bilaterally, SILT intact Course Course Course Narrative: up and walking into bed without any issue Medical Decision Making Medical Decision Making [facility] Narrative: 64 yo female with PMH Of COPD, arthritis, prior back pain, depression, HLD here with c/o low back pain, CVA ttp, suprapubic symptoms but no other symptoms or systemic complaint it does appear to be bothered by movement and palpation but her abdominal pain and WBC count 10/24 of is slightly concerning. She has hardware in the neck but not lower back where she has pain. She has no cauda equina symptoms and she has no IVDA, fevers, blood thinners. She does not have risk factors for epidural abscess. At this time given the abdominal pain I am going to repeat urine, labs and obtain CT scan with contrast for more definitive look. IV morphine for pain Differential Diagnosis Differential Diagnoses: The differential diagnosis associated with the presentation includes diverticular ds, constipation, back strain Admission/Observation Consideration of admission/observation: Escalation of care including admission/observation considered no acute findings and no cauda equina symptoms up and walking no issues Lab Data [facility] Lab Attestation statement: I reviewed the patient's lab results. 10/26/24 16:18 10/26/24 16:18 Labs: Lab Results 10/26/24 10/26/24 Range/Units 16:18 18:37 WBC 9.3 (4.8-10.8) X10*3/uL RBC 4.06 L (4.20-5.50) X10*6/uL Hgb 12.7 (12.0-16.0) g/dl Hct 37.4 (37.0-47.0) % MCV 92.1 (80.0-98.0) fL MCH 31.3 (27.0-33.0) pg MCHC 34.0 (31.0-35.0) g/dl RDW 12.3 (11.0-16.0) % Plt Count 190 (160-400) X10*3/uL MPV 9.4 (9.4-12.3) fL Immature Gran % (Auto) 0.4 (0.0-0.4) % Neut % (Auto) 65.0 (45-73) % Lymph % (Auto) 28.9 (20-40) % [place] % (Auto) 3.9 (2-11) % Eos % (Auto) 1.7 (0-4) % Baso % (Auto) 0.1 (0-2) % Lymph # (Auto) 2.7 (1.2-4.9) X10*3/uL [place] # (Auto) 0.4 (0.1-1.2) X10*3/uL Eos # (Auto) 0.2 (0.0-0.4) X10*3/uL Baso # (Auto) 0.0 (0.0-0.2) X10*3/uL Abs Immat Gran (auto) 0.04 H (0.00-0.03) X10*3/uL Absolute Neuts (auto) 6.0 (2.0-8.3) x10*3/uL Absolute Nucleated RBC 0.000 (0.0-0.012) X10*3/uL Nucleated RBC % (auto) 0.0 (0.0-0.2) /100WBC Sodium 136 (135-145) mmol/L Potassium 3.8 D (3.3-5.1) mmol/L Chloride 105 (96-108) mmol/L Carbon Dioxide 24 (22-29) mmol/L Anion Gap 11 L (12-20) BUN 14 (9-16) mg/dL Creatinine 0.82 (0.5-1.4) mg/dL Estim Creat Clear Calc 56.2 Estimated GFR > 60 Random Glucose 83 (60-115) mg/dL Lactic Acid 0.6 (0.5-2.0) mmol/L Calcium 8.9 (8.4-10.2) mg/dL Magnesium 1.9 (1.6-2.6) mg/dL Total Bilirubin 0.9 (0.0-1.0) mg/dL Direct Bilirubin 0.3 (0.0-0.5) mg/dL AST 37 H (5-31) U/L ALT 58 H (0-31) U/L Alkaline Phosphatase 69 (39-117) U/L Troponin I High Sens < 2.7 (<3.5-17.0) ng/L Total Protein 5.6 L (6.5-8.0) g/dL Albumin 3.6 (3.5-5.0) g/dL Lipase 45 (8-78) U/L Urine Color Yellow Urine Appearance Clear Urine pH 6.5 (5.0-9.0) Ur Specific [place] >= 1.030 H (1.005-1.025) Urine Protein Negative (Neg-Trace) mg/dL Urine Glucose (UA) Negative (Negative) mg/dL Urine Ketones Negative (Negative) mg/dL Urine Blood Negative (Negative) Urine Nitrite Negative (Negative) Ur Leukocyte Esterase Negative (Negative) Influenza Type A (PCR) NEGATIVE (Negative) Influenza Type B (PCR) NEGATIVE (Negative) RSV RNA Qual (PCR) NEGATIVE (Negative) SARS-CoV-2 RNA (RT-PCR) NEGATIVE (Negative) Independent Interpretation I performed an independent interpretation of an: EKG and CT Scan (no cause for pain) Interpretation: Rate: 69 Rhythm: NSR [place]: normal Normal P waves. Normal [place]. Normal QRS complex. ST T wave : inverted t wave V1 and V2, no ANGIE qTC: 409 prior studies: no acute ischemia The study has been interpreted contemporaneously by me. . Radiology Impression Discussion of test interpretation with radiology: I have reviewed the radiologist's reading. Independent Historian Clinical information obtained from an independent historian. History obtained from or confirmed by: Spouse External Record Review External record reviewed: Inpatient record Prescription Management I considered prescription management with: Pain Medication and Other Medications Administered Discontinued Medications Generic Name Dose Route Start Last Admin Trade Name Freq PRN Reason Stop Dose Admin Iohexol 100 ml 10/26/24 17:19 10/26/24 17:20 Iohexol 350 Mg/Ml 100 Ml Infus..Btl IV 10/26/24 17:20 85 ml ONCE ONE Administration Morphine Sulfate 4 mg 10/26/24 16:01 10/26/24 16:22 Morphine Sulfate 4 Mg/Ml Cartridge IVPUSH 10/26/24 16:02 4 mg ONCE ONE Administration Protocol Discharge Plan Discharge Clinical Impression: Back pain Abdominal pain Qualifiers: Abdominal location: lower abdomen, unspecified Qualified Code(s): R10.30 - Lower abdominal pain, unspecified Patient Disposition: Home, Self-Care Instructions: Abdominal Pain (ED), Back Pain (ED) Additional Instructions: no acute cause of pain right now labs and urine reassuring CT scan normal please follow up with your doctor for symptoms return for any worsening symptoms or complaints FINDINGS: LUNG BASES: Unremarkable. ABDOMINAL AND PELVIC WALL: Unremarkable. LIVER AND BILIARY TREE: Unremarkable. GALLBLADDER: Unremarkable. PANCREAS: Unremarkable. SPLEEN: Unremarkable. ADRENAL GLANDS: Unremarkable. KIDNEYS AND URETERS: Benign-appearing right renal cyst. Followup imaging is not routinely recommended for benign appearing cysts. GASTROINTESTINAL TRACT: Unremarkable. Appendix is within normal limits. VASCULAR: Aortic atherosclerotic calcifications, no aneurysmal dialation. LYMPH NODES/PERITONEUM: No lymphadenopathy. FREE FLUID: None. BLADDER: Unremarkable. PELVIC VISCERA: Unremarkable. OSSEOUS STRUCTURES: Degenerative changes of the spine. CT/CT abdomen pelvis w IV con IMPRESSION: No acute intra-abdominal abnormality. Prescriptions: New cyclobenzaprine 10 mg tablet 10 mg PO TID PRN (Reason: muscle spasm) Qty: 20 0RF lidocaine 5 % adhesive patch,medicated 1 patch topical DAILY Qty: 30 0RF Rx Instructions: leave on most painful area for up to 12 hrs No Action omega 7-jqj-nta-fish oil [Fish Oil] 300-1,000 mg capsule 1 cap PO DAILY 90 Days Qty: 90 1RF ezetimibe [Zetia] 10 mg tablet 10 mg PO DAILY 90 Days Qty: 90 1RF trazodone 100 mg tablet 100 mg PO BEDTIME 90 Days Qty: 90 1RF paroxetine HCl 40 mg tablet 40 mg PO QAM 90 Days Qty: 90 1RF rosuvastatin 20 mg tablet 20 mg PO DAILY Qty: 90 1RF Trelegy Ellipta 100-62.5-25 mcg blister with device 1 inh inhalation DAILY Qty: 60 0RF multivitamin [Daily Multi-Vitamin] Tablet 1 tab PO DAILY vitamin A 2,400 mcg capsule 2,400 mcg PO DAILY jjdu-drtnc-nac-D3-hyal-elsy bor 750 mg-100 mg- 25 mcg tablet PO naproxen 500 mg tablet 500 mg PO ONCE Qty: 1 0RF lidocaine HCl 2 % jelly in applicator 10 ml intra-urethral ONCE Qty: 10 0RF amoxicillin-pot clavulanate 875-125 mg tablet 1 tab PO Q12H Qty: 14 0RF diclofenac sodium 50 mg tablet,delayed release (DR/EC) 50 mg PO Q12H PRN (Reason: pain) Qty: 14 0RF azithromycin 250 mg tablet See Rx Instructions PO .COMPLEX Qty: 6 0RF Rx Instructions: take 500 mg today (day 1), then 250 mg for 4 days (days 2-5) PO prednisone 20 mg tablet 60 mg PO DAILY 3 Days Qty: 30 0RF Rx Instructions: then take 2 and half tabs daily for 3 days, then take 2 tabs daily for 3 days, then take 1 and half tabs daily for 3 days, and then take 1 tab daily for 3 days Print Language: Maori
--- OUTSIDE RECORDS SUMMARY | 2024-10-26 16:13 | XMS_ITS ---
Author Organization [facility] Address [address] [place] [id number] Care Team Providers Care Social Service Assistant Name Role Phone TRAV BOGGS Primary Care Provider Bulmaro Cali [phone] REASON FOR VISIT campbylobacter enteritis Encounters Encounter Location Date Provider Diagnosis [facility] [address] [place] [address] 05/10/2024 Bulmaro Montilla PLAN OF TREATMENT No Information
--- OUTSIDE RECORDS SUMMARY | 2024-10-26 16:13 | XMS_ITS | Continuity of Care Document ---
Author Organization [employer] Address [address] [place] [address] Care Team Providers Care Smokehouse Operator Name Role Phone HIM CCA OTHER TRAV BOGGS Primary Care Provider Assessment Encounter Date Assessment Date Assessment LastModified by Organization Details LastModified Time 10/24/2024 10/24/2024 As noted, we were called to see this patient regarding concerns of bilateral flank pain. Evaluation in the field was performed by my security sme colleague, as noted above, I provided real-time [...] worse. On the physical exam by the security sme the patient has clear lung sounds. She [...] patient's took her to the ER at [facility] 5) I called a quick report [...] Modified Time Details Appointments None recorded. Lab urinalysis, dipstick [address]23 [email or web address], [phone], 4 10:51:50 BMP, serum or plasma 2023 [email or web address] 7 [facility], [address] [place] [address], [phone], 4 10:51:50 Referral None recorded. Procedures None recorded. Surgeries None recorded. Imaging None recorded. Medication Orders ketorolac 30 mg/mL injection solution 2023 [email or web address] 7 [id number], [address] [place] [address], [address], 4 10:51:50 sodium chloride 0.9 % intravenous solution 2023 [email or web address] 7 [id number], [address] [place], [address], 4 10:51:50 Patient TargetsNo targets recorded. Patient InstructionsNo [...] Diagnosis/Indication Diagnosis SNOMED-CT Code Diagnosis ICD10 Code [id number] MARQUEZ MCKINLEY MD [facility] [address] [place] [phone] 10/17/2024 12:31:55 10/17/2024 14:30:58 Low back pain [id number] M54.50 [id number] VINEET BECKMAN MD [facility] [address] [place] [phone] 10/24/2024 09:43:21 10/24/2024 11:55:37 Abdominal pain [id number] R10.9 Left flank pain [id number] 9 R10.9 Right flank pain [id number] 09 R10.9 Blood in urine [id number] R31.9 Health Concerns Section Related Observation LastModified by Organization Detai ls LastModified Time None Recorded Concern Status LastModified by Organization Details LastModified Time None Recorded Payers Encounter Date Sequence Insurance Name Policy Number Policy Martinez Covered Member ID Martinez Member ID Guarantor Name 10/24/2024 1 [facility] - DOS ON OR AFTER 2023 - DUAL ELIGIBLE - CORRECTION OPTIONS AND ONE CARE (MEDICARE REPLACEMENT/ADV ANTAGE - HMO) Olivia Stafford [id number] Olivia Stafford Notes Date Note Type Note [...] taking any OTC meds for symptoms relief. Benefit Authorizer Organization Information for Jeromeangelotyler [employer] Name: [employer] Address: [address] [place] [address] [place], DARCY Christine [address], Drafter Apprentice: Abhay Larkin MD [facility] No.: [id number] Benefit Authorizer POC Test Results from [employer] [facility] (:46:34) pH: 7.38 pH units pCO2: 50.0 mmHg pO2: 10.7 mmHg Na: 140 mmol/L K: 4.3 mmol/L iCa: 1.20 mmol/L Cl: 100 mmol/L TCO2: 29.0 mEq/L Hct: 47 % Hb: 15.8 g/dL Glu: 143 mg/dL Lac: 1.69 mmol/L Cr: 0.76 mg/dL BUN: 21 mg/dL A Urine Dipstick (:46:38) Urine leukocytes: - LANDEN Urine nitrites: - NIT Urine urobilinogen: - URO Urine protein: trace PRO Urine pH: 5.0 pH Urine blood: 3+ BLO Urine specific gravity: 1.020 SG Urine ketones: - KET Urine bilirubin: - TRELL Urine glucose: - GLU .................... .................... .................... .................... .................... .................... .................... . Benefit Authorizer Note From [employer]: This 64-year-old female [...] mL IV and Toradol 15 mg IVP. [facility] spoke directly to the patient and advised her that an ED eval is indicated to rule out a kidney stone. Patient is agreeable for an ED evaluation at [facility]. Patient would prefer to have her drive her right now. The patient was given the opportunity to ask questions and is agreeable to this plan. .................... .................... .................... .................... .................... .................... .................... . [facility] Consulted: Vineet Beckman .................... .................... .................... .................... .................... .................... .................... . Disposition: Fulfilled VINEET BECKMAN MD [address] [facility],[address], [place], [address], [employer] [facility] 10/24/2024 10:53:47 OBGyn Episode No OBEpisode recorded.
--- OUTSIDE RECORDS SUMMARY | 2024-10-26 16:13 | XMS_ITS | Data Portability ---
Author Organization [employer] Address [address] [place] [phone] Care Team Providers Care Process Control Manager Name Role Phone HIM CCA OTHER TRAV BOGGS Primary Care Provider [phone] Assessment Encounter Date Assessment Date Assessment LastModified [...] for ongoing pain management and PT referral. [email or web address] Not available 10/17/2024 14:12:30 10/24/2024 10/24/2024 As noted, we heena e called to see this patient regarding concerns of bilateral flank pain. Evaluation in the field was performed by my belting inspector colleague, as noted above, I provided real-time [...] worse. On the physical exam by the belting inspector the patient has clear lung sounds. She [...] patient's took her to the ER at [facility] 5) I called a quick report to the emergency medicine position on duty and discuss this patient with her Disposition to the ER We discussed the situation and I recommended referral to the emergency department. This was based on abdominal pain [email or web address] Not available 10/24/2024 10:48:11 Plan of Treatment Reminders Order Date Submit Date Provider Last Modified By Organization Details Last Modified Time Details Appointments None recorded. Lab urinalysis, dipstick 2023 [email or web address], [phone], 10:51:50 BMP, serum or plasma 2023 024 [email or web address], [phone], 10:51:50 Referral None recorded. Procedures None recorded. Surgeries None recorded. Imaging None recorded. Medication Orders ketorolac 30 mg/mL injection solution 2023 024 [email or web address] Not available 12:33:00 ketorolac 30 mg/mL injection solution 2023 024 [email or web address] 7 [id number], [address] [place], [address], 10:51:50 sodium chloride 0.9 % intravenous solution 2023 024 [email or web address] 7 [id number], [address] [place], [address], 10:51:50 Patient TargetsNo targets recorded. Patient InstructionsNo [...] % 124 mm[Hg] 74 mm[Hg] Not Available [employer] [facility] production 12:31:58 Date Recorded Oxygen saturation Oxygen saturation in Arterial blood by Pulse oximetry Heart rate Body temperature Respiratory rate Systolic blood pressure Diastolic blood pressure Provider Name and Address Organization Details Last Updated DateTime 4 98 % 98 % 88 /min 98.9 [degF] 16 /min 120 mm[Hg] 74 mm[Hg] Not Available [employer] [facility] [employer] 09:43:23 Social History None recorded. Functional Status None recorded. Mental Status None recorded. Family History Nothing Reported. Medical History No medical history recorded. Gynecological HistoryNo gynecological history recorded. Obstetrics History GPAL:G 0 P 0 0 0 0 Past Encounters Encounter ID Performer Location Encounter Start Date Encounter Closed Date Diagnosis/Indication Diagnosis SNOMED-CT Code Diagnosis ICD10 Code [id number] MARQUEZ MCKINLEY MD [facility] [address] [place] [id number] 10/17/2024 12:31:55 10/17/2024 14:30:58 Low back pain 770284570 M54.50 [id number] VINEET BECKMAN MD [facility] [address] [place] [id number] 10/24/2024 09:43:21 10/24/2024 11:55:37 Abdominal pain 04523517 R10.9 Left flank pain 64391941 9 R10.9 Right flank pain 9720536 09 R10.9 Blood in urine 69495299 R31.9 Health Concerns Section Related Observation LastModified by Organization Detai ls LastModified Time None Recorded Concern Status LastModified by Organization Details LastModified Time None Recorded Advance Directives Directive None Recorded Payers Encounter Date Sequence Insurance Name Policy Number Policy Martinez Covered Member ID Martinez Member ID Guarantor Name 10/17/2024 1 [facility] - DOS ON OR AFTER 2023 - DUAL ELIGIBLE - GROUP HOME OPTIONS AND ONE CARE (MEDICARE REPLACEMENT/ADV ANTAGE - HMO) Olivia Morgane [id number] Olivia Stafford 10/24/2024 1 [facility] - DOS ON OR AFTER 2023 - DUAL ELIGIBLE - GROUP HOME OPTIONS AND ONE CARE (MEDICARE REPLACEMENT/ADV ANTAGE - HMO) Olivia Stafford [id number] Olivia Stafford Notes Date Note Type Note [...] .................... .................... .................... .................... .................... .................... . [employer] Note From [employer]: This 64-year-old female [...] .................... .................... .................... .................... .................... .................... . [facility] [place] Consulted: Marquez Mckinley .................... .................... .................... .................... .................... .................... .................... . Disposition: Fulfilled MARQUEZ MCKINLEY MD [address] [place] [address],[address], [place], [address], [employer] 10/17/2024 14:12:38 10/24/2024 text/html CRC Nurse Triage [...] taking any OTC meds for symptoms relief. [employer] Organization Information for [employer] Business Legal Name: [facility] Address: [address] [place] [address], Slitting Machine Operator Helper: Abhay Larkin MD CLIA No.: [id number] [employer] POC Test Results from [employer] [facility] (09:46:34) pH: 7.38 pH units pCO2: 50.0 [...] .................... .................... .................... .................... .................... .................... . [employer] Note From [employer]: This 64-year-old female [...] mL IV and Toradol 15 mg IVP. [facility] [place] [place] directly to the patient and advised her that an ED eval is indicated to rule out a kidney stone. Patient is agreeable for an ED evaluation at [facility]. Patient would prefer to have her drive her right now. The patient was given the opportunity to ask questions and is agreeable to this plan. .................... .................... .................... .................... .................... .................... .................... . [facility] [place] Consulted: Vineet Beckman .................... .................... .................... .................... .................... .................... .................... . Disposition: Fulfilled VINEET BECKMAN MD [address] [facility],[address], [place], [address], [employer] [facility] [employer] 10/24/2024 10:53:47 OBGyn Episode No OBEpisode recorded.
--- OUTSIDE RECORDS SUMMARY | 2024-10-26 16:13 | XMS_ITS | Continuity of Care Document ---
Author Organization [employer] Address [address] [place] [address] Care Team Providers Care Supervisor Post Wave Name Role Phone HIM CCA OTHER TRAV BOGGS Primary Care Provider [phone] Assessment Encounter Date Assessment Date Assessment LastModified [...] for ongoing pain management and PT referral. [email or web address] Not available 10/17/2024 14:12:30 Plan of Treatment [...] Diagnosis/Indication Diagnosis SNOMED-CT Code Diagnosis ICD10 Code [id number] LIEN MCKINLEY MD [address] [phone] 10/17/2024 12:31:55 10/17/2024 14:30:58 Low back pain 722360766 M54.50 Health Concerns Section Related Observation LastModified by Organization Detai ls LastModified Time None Recorded Concern Status LastModified by Organization Details LastModified Time None Recorded Payers Encounter Date Sequence Insurance Name Policy Number Policy Martinez Covered Member ID Martinez Member ID Guarantor Name 10/17/2024 1 [facility] - DOS ON OR AFTER 2023 - DUAL ELIGIBLE - PRISON OPTIONS AND ONE CARE (MEDICARE REPLACEMENT/ADV ANTAGE - HMO) Olivia Stafford [id number] Olivia Nydia Notes Date Note Type Note [...] .................. .................. .................. .................. .................. .................. ............... Guest Services Coordinator Note From [employer]: This 64-year-old female [...] .................. .................. .................. .................. .................. .................. ............... [facility] Consulted: Lien Mckinley .................. .................. .................. .................. .................. .................. .................. ............... Disposition: Fulfilled LIEN MCKINLEY MD [address] [facility],[address], [place], [address], [employer] 10/17/2024 14:12:38 OBGyn Episode No OBEpisode recorded.
--- OUTSIDE RECORDS SUMMARY | 2024-10-26 16:13 | XMS_ITS | Patient Health Record ---
Author Organization [facility] Address [address] [place] [phone] Care Team Providers Care Educational Psychology Teacher Name Role Phone TRAV BOGGS Primary Care Provider Bulmaro Cali [phone] REASON FOR REFERRAL No Information SOCIAL HISTORY Sex Assigned At : Social History Observation Description Sex Assigned At Unknown Encounters Encounter Location Date Provider Diagnosis [facility] [address] [facility] [address] [place] [phone] 05/10/2024 Bulmaro Montilla PLAN OF TREATMENT No Information Insurance Providers Payer Name Payer Address Payer Phone Subscriber Number Group Number Insured Name Patient Relationship to Insured Coverage Start Date Coverage End Date [facility] [address] [place] [address] [id number] KAYLAN KEITA Self - patient is the insured
[2024-10-26] MEDS: Morphine Sulfate 4 MG/ML CARTRIDGE IVPUSH (16:22)
[2024-10-26 16:23] LABS: MANUAL DIFF FLAG NO
[2024-10-26 16:25] LABS: Basophils Percent Auto 0.1 % (0-2); Eosinophils Absolute Auto 0.2 X10*3/uL (0.0-0.4); Eosinophils Percent Auto 1.7 % (0-4); Hematocrit 37.4 % (37.0-47.0); Hemoglobin 12.7 g/dl (12.0-16.0); Imm Gran Abs Auto 0.04 X10*3/uL (0.00-0.03); Imm Gran Pct Auto 0.4 % (0.0-0.4); Lymphocytes Absolute Auto 2.7 X10*3/uL (1.2-4.9); Lymphocytes Percent Auto 28.9 % (20-40); Mean Corpuscular Hemoglobin 31.3 pg (27.0-33.0); Mean Corpuscular Volume 92.1 fL (80.0-98.0); Mean Platelet Volume 9.4 fL (9.4-12.3); Monocytes Absolute Auto 0.4 X10*3/uL (0.1-1.2); Monocytes Percent Auto 3.9 % (2-11); Platelet Count 190 X10*3/uL (160-400); Red Blood Count 4.06 X10*6/uL (4.20-5.50); Red Cell Distribution Width 12.3 % (11.0-16.0); White Blood Count 9.3 X10*3/uL (4.8-10.8)
[2024-10-26 16:40] LABS: Lactic Acid 0.6 mmol/L (0.5-2.0)
[2024-10-26 16:49] LABS: Troponin-I High Sensitivity < 2.7 ng/L (<3.5-17.0)
[2024-10-26 16:50] LABS: Albumin Level 3.6 g/dL (3.5-5.0); Anion Gap 11 (12-20); Aspartate Amino Transferase 37 U/L (5-31); Bilirubin Direct 0.3 mg/dL (0.0-0.5); Bilirubin Total 0.9 mg/dL (0.0-1.0); Blood Urea Nitrogen 14 mg/dL (9-16); Calcium 8.9 mg/dL (8.4-10.2); Carbon Dioxide 24 mmol/L (22-29); Chloride 105 mmol/L (96-108); Creatinine Clr Calc Pharmacy 56.2; Estimated Glomerular Filt Rate > 60; Glucose Random 83 mg/dL (60-115); Lipase 45 U/L (8-78); Magnesium 1.9 mg/dL (1.6-2.6); Potassium 3.8 mmol/L (3.3-5.1); Sodium 136 mmol/L (135-145); Total Protein 5.6 g/dL (6.5-8.0)
[2024-10-26 17:02] LABS: Alanine Aminotransferase 58 U/L (0-31); Alkaline Phosphatase 69 U/L (39-117)
[2024-10-26 17:18] LABS: Influenza A PCR NEGATIVE (Negative); Influenza B PCR NEGATIVE (Negative); Resp Syncy Virus RNA Qual PCR NEGATIVE (Negative); SARS COV2 PCR INHOUSE NEGATIVE (Negative)
[2024-10-26] MEDS: iohexoL 350 MG/ML 100 ML INFUS..BTL IV (17:20)
[2024-10-26 18:29] VITALS: BP 148/69; PULSE 62; RESP 14; TEMP 36.2; O2SAT 97
[2024-10-26 18:51] LABS: Appearance Urine Clear; Color Urine Yellow; Glucose Urine UA Negative (Negative); Leukocyte Esterase Urine Negative (Negative); Nitrite Urine Negative (Negative); PH 6.5 (5.0-9.0); Specific Gravity - Urine >= 1.030 (1.005-1.025); Urine Blood Negative (Negative); Urine Ketones Negative (Negative); Urine Protein Negative (Neg-Trace)
[2024-10-26 19:51] VITALS: BP 148/69; PULSE 62; RESP 14; TEMP 36.2; O2SAT 97
== END 2024-10-26 19:55 | disposition home or self-care (01) ==
PROVIDERS: Emergency Provider Emergency Medicine; PCP Nurse Practitioner Family
DX: M54.50 Low back pain, unspecified (principal); J44.9 Chronic obstructive pulmonary disease, unspecified; R10.30 Lower abdominal pain, unspecified; R10.2 Pelvic and perineal pain; F17.210 Nicotine dependence, cigarettes, uncomplicated; Z79.899 Other long term (current) drug therapy; Z03.818 Encounter for observation for suspected exposure to other biological agents ruled out
CPT/HCPCS: 0241U; 74177; 80048; 80076; 81003; 83605; 83690; 83735; 84484; 85025; 93005; 96374; 99284; J2270; Q9967

== ENCOUNTER → 2024-10-26 16:03 | Outpatient (BNV) | payer OTHER, SELFPAY | PROVIDERS: Emergency Provider Emergency Medicine; PCP Nurse Practitioner Family; Visit Provider Internal Medicine | DX: M54.50 Low back pain, unspecified (principal) | CPT/HCPCS: 93010 ==

== ENCOUNTER 2024-11-15 07:44 | Outpatient (AMB) | payer OTHER, SELFPAY ==
[2024-11-15 07:48] VITALS: BP 122/72; PULSE 74; O2SAT 99; BMI 23.0
--- NOTE | 2024-11-15 07:48 | MHC.PC.OV ---
Vital Signs 11/15/24 07:48 Height 5 ft 2 in Weight 126 lb BMI 23.0 BP 122/72 Blood Pressure Location Lt brachial Position Sitting Pulse 74 Pulse Source Pulse Oximeter Pulse Oximetry (%) 99 Oxygen Delivery Method Room Air Intake Visit Reasons: Follow up from ED Intake Note: Pt is here today f/u C ER Allergies buspirone Adverse Reaction (Intermediate, Verified 11/15/24 08:51) vomiting varenicline [From Chantix] Adverse Reaction (Intermediate, Verified 11/15/24 08:51) Mood changes, anger Wellbutrin Adverse Reaction (Intermediate, Uncoded 11/15/24 08:51) vomiting Medication List - Last Reconciled 11/15/24 by Melvin Lao, ANIMAL SITTER-BC cyclobenzaprine 10 mg PO TID PRN diclofenac sodium 50 mg PO Q12H PRN ezetimibe (Zetia) 10 mg PO DAILY 90 days kmmggwrjuii-jcvjshofr-wkpmkjkz 100-62.5-25 mcg (Trelegy Ellipta) 1 inh inhalation DAILY tloe-lxepr-efz-D3-hyal-elsy bor 750 mg-100 mg- 25 mcg tabs PO omega 9-oky-ehi-fish oil 300-1,000 mg (Fish Oil) 1 cap PO DAILY 90 days paroxetine HCl 40 mg PO QAM 90 days rosuvastatin 20 mg PO DAILY trazodone 100 mg PO BEDTIME 90 days vitamin A 2,400 mcg PO DAILY Tobacco use date assessed: 11/15/24 Dental Screening Dental Screen Date: 11/15/24 Did you have a dental visit in the last 12 months?: Yes Did you have a dental problem in the last 6 months where you did not have access to dental care?: No Was dental information given to patient?: Patient has dentist HPI Follow up from ED HPI Details Chief Complaint The patient presents with abdominal pain and back pain. History of Present Illness The patient is a 64-year-old female presenting with abdominal and back pain. She was seen in the emergency room on October 26 due to her symptoms. Laboratory tests indicated a slightly elevated white blood cell count of 14. A recent viral infection was reported, causing coughing, which may have triggered some of the abdominal and flank pain. Chronic Obstructive Pulmonary Disease (COPD) is a significant condition noted in her history, which may contribute to her respiratory symptoms. The patient was evaluated via CT scan of the abdomen and pelvis, which revealed no acute findings. She was discharged with lidocaine patches and cyclobenzaprine, experiencing improvement in flank pain but persisting pelvic discomfort. Previous records show her visit to urology in February 2023 for microscopic hematuria, though she denies dysuria. The patient reports intermittent pelvic pain, consistent with findings of a benign CT involving the bladder and pelvic region. She is scheduled for a bladder sling procedure due to stress urinary incontinence. Social History Health Maintenance Review of Systems - Respiratory: Reports coughing associated with recent viral infection. - Genitourinary: Denies dysuria. - Musculoskeletal: Reports pelvic discomfort. Physical Exam General: Cooperative, healthy appearing, comfortable, no acute distress and well developed Orientation: Patient oriented x3 Limitations: No limitations Head: Normal to inspection Ears: Hearing grossly normal bilaterally Nose: Normal external nose present Face and sinus: Normal facial exam Eyes: Appearance normal, both eyes and all related structures Neck: Normal visual inspection and Yes full ROM Respiratory: clear dim bilat Cardiovascular: Regular rate and rhythm. Normal S1 and S2 GI: Normal to inspection. Soft to palpation and nontender : pelvic pressure with palpation of this region, no CVA tenderness bilat Skin: No rashes or lesions noted Neuro: Patient oriented x3 Extremities: Normal to inspection Results - CT Abdomen and Pelvis: No acute findings, bladder unremarkable. - Labs: White Blood Cell count elevated at 14. Plan - A urinalysis will be obtained today and sent for culture. - Continue using lidocaine patches and cyclobenzaprine to manage pain. - Monitor pelvic discomfort, consider if linked to upcoming bladder sling procedure. - Maintain current medications and follow up as needed. Patient was informed and verbally consented to the use of an ambient scribe for clinic note documentation during this visit. Discussion Notes I explained to the patient that her recent viral infection, which involved coughing, might have exacerbated her abdominal and flank pain. The CT scan from the ER visit showed no acute issues. Her COPD is a contributing factor to her respiratory illness. We discussed continuing lidocaine patches and cyclobenzaprine for pain relief. A urinalysis will be sent for evaluation, and she will be advised on further management following up with the outcome of her sling procedure. Patient Instructions [facility] Medical History (Updated 11/15/24 @ 08:55 by Melvin Lao, [facility]) Arthritis Nicotine dependence, cigarettes, uncomplicated Dyslipidemia Multiple adenomatous polyps Urinary incontinence Sleep apnea Osteoporosis (~2014) HLA B27 (HLA B27 positive) Palpitations COPD (chronic obstructive pulmonary disease) Depression, major, recurrent Surgical History History of colonoscopy History of foot surgery (~2018) History of vaginal surgery (~2005) History of eye surgery (~2013) History of spinal fusion (~2013) History of vaginal hysterectomy (~2003) History of laparoscopy (~2001) Family History Father CVD (cardiovascular disease) Mother Kidney failure CHF (congestive heart failure) Atherosclerosis Atherosclerotic peripheral vascular disease Foot ulcer CVD (cardiovascular disease) Sister History of heart attack Brother CVD (cardiovascular disease) HTN (hypertension) Maternal Grandfather Unknown family medical history Maternal Grandmother Unknown family medical history Paternal Grandmother Bladder cancer Paternal Grandfather History of CVA (cerebrovascular accident) Other Mental health disorder Social History Housing: House Alcohol intake: current Alcohol intake frequency: a few times a week Alcohol type: wine Patient Tobacco Use Status: Current everyday Tobacco user Tobacco use type: Cigarette Cigarette Packs Per Day: 0.5 Cigarettes Per Day: 10.0 Years Smoked: 40 Packs Per Year: 20 Packs per year/per ci.00 e-Cigarette/Vaping Use: Never Used Second Hand Smoke Exposure: Yes Current occupational status: disabled Cognitive needs: No Hearing needs: No Vision needs: Yes Questionnaire PHQ-9 Over the last 2 weeks, how often have you been bothered by any of the following problems? 1. Little interest or pleasure in doing things: not at all 2. Feeling down, depressed, or hopeless: not at all 3. Trouble falling or staying asleep, or sleeping too much: not at all 4. Feeling tired or having little energy: not at all 5. Poor appetite or overeating: not at all 6. Feeling bad about yourself - or that you are a failure or have let yourself or your family down: not at all 7. Trouble concentrating on things, such as reading the newspaper or watching television: not at all 8. Moving or speaking so slowly that other people could have noticed. Or the opposite - being so fidgety or restless that you have been moving around a lot more than usual: not at all 9. Thoughts that you would be better off or of hurting yourself in some way: not at all Total score: 0 Depression Screening Interpretation: Negative Depression Screening Done: Yes 17417 - PHQ-9 Billing: Yes Source: Developed by Drs. Bulmaro Campoverde, Vita Hanna, Harvey Ayers and colleagues, with an educational nick from [employer]. Thrive Questionnaire Date Thrive assessed: 11/15/24 I am a: Patient What is your living situation today?: I have a steady place to live Within the past 12 months, did the food you bought not last and you didn't have the money to get more?: Never true Within the past 12 months, did you worry whether your food would run out before you got money to buy more?: Never true Do you have trouble paying for medicines?: No Do you have trouble getting transportation to medical appointments?: No Do you have trouble paying your heating and electricity bill?: No Do you have trouble taking care of your child, family member or friend?: No Do you have trouble with day-to-day activities such as bathing, preparing meals, shopping, managing finances, etc.?: No Are you currently unemployed and looking for a job?: No Are you interested in more education?: No THRIVE Score: 0 AUDIT C Alcohol Use Questionnaire (AUDIT-C) 1. How often do you have a drink containing alcohol?: Monthly or less 2. How many drinks containing alcohol do you have on a typical day when you are drinking?: 1 or 2 3. How often do you have six or more drinks on one occasion?: Never Total Score: 1 BARB-7 AMB Questionnaire BARB-7 Date BARB - 7 assessed: 11/15/24 Feeling nervous, anxious, or on edge: 1 = Several days Not being able to stop or control worryin = Several days Worrying too much about different things: 1 = Several days Trouble relaxin = Several days Being so restless that it is hard to sit still: 1 = Several days Becoming easily annoyed or irritable: 1 = Several days Feeling afraid as if something awful might happen: 1 = Several days Total BARB-7 score (0-4 normal; 5-9 mild; 10-14 moderate; 15-21 severe): 7 Source: Developed by Drs. Bulmaro Campoverde, Vita Hanna, Harvey Ayers and colleagues, with an educational nick from [employer]. Physical exam (Primary Care) Vital Signs: Last Vital Signs Pulse 74 11/15/24 07:48 BP 122/72 11/15/24 07:48 Pulse Ox 99 11/15/24 07:48 Oxygen Delivery Method Room Air 11/15/24 07:48 BMI result Body Mass Index 23.0 Tobacco/Smoking Status: Tobacco use Status Tobacco use date assessed 11/15/24 11/15/24 07:49 Patient Tobacco Use Status Current everyday Tobacco 11/15/24 07:49 Tobacco use type Cigarette 11/15/24 07:49 e-Cigarette/Vaping Use Never Used 11/15/24 07:49 PHQ-9: PHQ-9 Score PHQ-9: Total score 0 11/15/24 08:25 Depression Screening Interpretation: Negative Thrive Assessment: Date of Thrive Assessment Date Thrive assessed 11/15/24 11/15/24 07:54 Results AMB Urinalysis, Automated UA Leukoctes 0 Amos/uL Last Edit by Anish Espitia CMA on 11/15/24 08:33 UA Nitrite Negative Last Edit by Anish Espitia CMA on 11/15/24 08:33 UA Urobilinogen 0.2 mg/dL Last Edit by Anish Espitia CMA on 11/15/24 08:33 UA Protein 0 mg/dL Last Edit by Anish Espitia CMA on 11/15/24 08:33 UA pH 5.5 Last Edit by Anish Espitia CMA on 11/15/24 08:33 UA Blood 200 Lj/uL Last Edit by Anish Espitia CMA on 11/15/24 08:33 UA Specific Devens 1.030 Last Edit by Anish Espitia CMA on 11/15/24 08:33 UA Ketone Negative Last Edit by Anish Espitia CMA on 11/15/24 08:33 UA Bilirubin 0 mg/dL Last Edit by Anish Espitia CMA on 11/15/24 08:33 UA Glucose 0 mg/dL Last Edit by Anish Espitia CMA on 11/15/24 08:33 Results Reviewed Results Reviewed: Laboratory Last Values Urine pH (Auto) 5.5 11/15/24 08:32 Specific Devens (Auto) 1.030 11/15/24 08:32 Urine Protein (Auto) 0 mg/dL 11/15/24 08:32 Glucose (UA)(Auto) 0 mg/dL 11/15/24 08:32 Urine Ketones (Auto) Negative 11/15/24 08:32 Urine Blood (Auto) 200 Lj/uL 11/15/24 08:32 Urine Nitrite (Auto) Negative 11/15/24 08:32 Urine Bilirubin (Auto) 0 mg/dL 11/15/24 08:32 Urine Urobilinogen (Auto) 0.2 mg/dL 11/15/24 08:32 Leukocyte Esterase (Auto) 0 Amos/uL 11/15/24 08:32 Coding Level of Care Code Est Pt Level 3 (15751) Diagnoses Pelvic pressure in female R10.2 Acute bilateral low back pain without sciatica M54.50 Back pain laterality: bilateral Back pain location: low back pain Chronicity: acute Sciatica presence: without sciatica Additional Codes PHQ-9 - 02880 - PHQ-9 Billing: Yes ([id number]) Assessment & Plan Assessment & Plan (1) Pelvic pressure in female: Comment: pt reports needing a sling Code(s): R10.2 - Pelvic and perineal pain Category: Medical (2) Back pain: Code(s): M54.9 - Dorsalgia, unspecified Category: Medical Qualifiers: Back pain laterality: bilateral Back pain location: low back pain Chronicity: acute Sciatica presence: without sciatica Qualified Code(s): M54.50 - Low back pain, unspecified Plan . Orders: Orders AMB Urinalysis Automated Today Z13.9 - Encounter for screening, unspecified UA CC w/rflx Micro + Cult Today R10.2 - Pelvic and perineal pain Urine Culture Today R10.2 - Pelvic and perineal pain Referrals Urology Referral R10.2 - Pelvic and perineal pain
== END 2024-11-15 09:54 | disposition home or self-care (01) ==
PROVIDERS: PCP Nurse Practitioner Family; Visit Provider Nurse Practitioner Family
DX: R10.2 Pelvic and perineal pain (principal); M54.50 Low back pain, unspecified; Z13.9 Encounter for screening, unspecified

== ENCOUNTER 2024-11-15 07:44 | Outpatient (REF) | payer OTHER, SELFPAY ==
--- OUTSIDE RECORDS SUMMARY | 2024-11-15 09:04 | XMS_ITS | Continuity of Care Document ---
Author Organization [email or web address], [place] - [employer] Address [address] [place] [address] Care Team Providers Care Benzene Operator Name Role Phone HIM CCA OTHER TRAV BOGGS Primary Care Provider Assessment Encounter Date Assessment Date Assessment LastModified by Organization Details LastModified Time 10/24/2024 10/24/2024 As noted, we were called to see this patient regarding concerns of bilateral flank pain. Evaluation in the field was performed by my retail maintenance technician colleague, as noted above, I provided real-time [...] worse. On the physical exam by the retail maintenance technician the patient has clear lung sounds. She [...] patient's took her to the ER at [facility] 5) I called a quick report to the emergency medicine position on duty and discuss this patient with her Disposition to the ER We discussed the situation and I recommended referral to the emergency department. This was based on abdominal pain [email or web address] Not available 10/24/2024 10:48:11 Plan of Treatment Reminders Order Date Submit Date Provider Last Modified By Organization Details Last Modified Time Details Appointments None recorded. Lab urinalysis, dipstick [email or web address], [phone], 4 10:51:50 BMP, serum or plasma 2023 [email or web address] 7 [facility], [address] [place] [address], [phone], 4 10:51:50 Referral None recorded. Procedures None recorded. Surgeries None recorded. Imaging None recorded. Medication Orders ketorolac 30 mg/mL injection solution 2023 [email or web address] 7 [id number], [address] [place] [address], [address], 4 10:51:50 sodium chloride 0.9 % intravenous solution 2023 [email or web address] 7 [id number], [address] [place], [address], 4 10:51:50 Patient TargetsNo targets recorded. Patient [...] Diagnosis/Indication Diagnosis SNOMED-CT Code Diagnosis ICD10 Code Diagnosis Note [id number] MARQUEZ MCKINLEY MD Main - [facility] [address] [place] [phone] 10/17/2024 12:31:55 10/17/2024 14:30:58 Low back pain [id number] M54.50 [id number] [facility] [address] [place] [phone] 10/24/2024 09:43:21 10/24/2024 11:55:37 Abdominal pain 69697797 R10.9 Left flank pain 57762508 9 R10.9 Right flank pain 1801026 09 R10.9 Blood in urine 93700518 R31.9 Health Concerns Section Related Observation LastModified by Organization Detai ls LastModified Time None Recorded Concern Status LastModified by Organization Details LastModified Time None Recorded Payers Encounter Date Sequence Insurance Name Policy Number Policy Martinez Covered Member ID Martinez Member ID Guarantor Name 10/24/2024 1 [facility] - DOS ON OR AFTER 2023 - DUAL ELIGIBLE - GROUP HOME OPTIONS AND ONE CARE (MEDICARE REPLACEMENT/ADV ANTAGE - HMO) Olivia Stafford [id number] Olivia Stafford Notes Date Note Type Note [...] taking any OTC meds for symptoms relief. Needlemaker Organization Information for Jeromevictor[employer] Legal Name: [employer] Address: [address] [place] [address], [place] [address], Garnett Machine Operator: Abhay GARCIA No.: [id number] Needlemaker POC Test Results from [employer] [facility] (:46:34) pH: 7.38 pH units pCO2: 50.0 [...] .................... .................... .................... .................... .................... .................... . Needlemaker Note From [employer]: This 64-year-old female [...] mL IV and Toradol [address] [facility] spoke directly to the patient and advised her that an ED eval is indicated to rule out a kidney stone. Patient is agreeable for an ED evaluation at [facility]. Patient would prefer to have her drive her right now. The patient was given the opportunity to ask questions and is agreeable to this plan. .................... .................... .................... .................... .................... .................... .................... . [facility] Consulted: Vineet Beckman .................... .................... .................... .................... .................... .................... .................... . Disposition: Fulfilled VINEET BECKMAN MD [address] [facility],[address], [place], [address], [email or web address] 10/24/2024 10:53:47 OBGyn Episode No OBEpisode recorded.
--- OUTSIDE RECORDS SUMMARY | 2024-11-15 09:04 | XMS_ITS | Data Portability ---
Author Organization [employer] [place] [employer] Address [address] [place] [address] Care Team Providers Care Early Intervention Specialist Name Role Phone HIM CCA OTHER TRAV BOGGS Primary Care Provider [phone] Assessment Encounter Date Assessment Date Assessment LastModified [...] for ongoing pain management and PT referral. [email or web address] Not available 10/17/2024 14:12:30 10/24/2024 10/24/2024 As noted, we heena e called to see this patient regarding concerns of bilateral flank pain. Evaluation in the field was performed by my leader assembler colleague, as noted above, I provided real-time [...] worse. On the physical exam by the leader assembler the patient has clear lung sounds. She [...] patient's took her to the ER at [facility] 5) I called a quick report to the emergency medicine position on duty and discuss this patient with her Disposition to the ER We discussed the situation and I recommended referral to the emergency department. This was based on abdominal pain [email or web address] Not available 10/24/2024 10:48:11 Plan of Treatment Reminders Order Date Submit Date Provider Last Modified By Organization Details Last Modified Time Details Appointments None recorded. Lab urinalysis, dipstick [email or web address], [address], 10:51:50 BMP, serum or plasma 2023 024 [email or web address] [address], [address], 10:51:50 Referral None recorded. Procedures None recorded. Surgeries None recorded. Imaging None recorded. Medication Orders ketorolac 30 mg/mL injection solution 2023 024 [email or web address] Not available 12:33:00 ketorolac 30 mg/mL injection solution 2023 024 [email or web address] 7 [id number], [address] [place], [address], 10:51:50 sodium chloride 0.9 % intravenous solution 2023 024 [email or web address] 7 [id number], [address] [place], [address], 10:51:50 Patient TargetsNo targets recorded. Patient InstructionsNo [...] % 124 mm[Hg] 74 mm[Hg] Not Available [employer] 12:31:58 Date Recorded Oxygen saturation Oxygen saturation in Arterial blood by Pulse oximetry Heart rate Body temperature Respiratory rate Systolic blood pressure Diastolic blood pressure Provider Name and Address Organization Details Last Updated DateTime 4 98 % 98 % 88 /min 98.9 [degF] 16 /min 120 mm[Hg] 74 mm[Hg] Not Available [employer] 09:43:23 Social History None recorded. Functional Status None recorded. Mental Status None recorded. Family History Nothing Reported. Medical History No medical history recorded. Gynecological HistoryNo gynecological history recorded. Obstetrics History GPAL:G 0 P 0 0 0 0 Past Encounters Encounter ID Performer Location Encounter Start Date Encounter Closed Date Diagnosis/Indication Diagnosis SNOMED-CT Code Diagnosis ICD10 Code Diagnosis Note [id number] MARQUEZ MCKINLEY MD Main - [facility] [address] [place] [phone] 10/17/2024 12:31:55 10/17/2024 14:30:58 Low back pain [id number] M54.50 [id number] VINEET BECKMAN MD Main - [facility] [address] [place] [phone] 10/24/2024 09:43:21 10/24/2024 11:55:37 Abdominal pain 58881505 R10.9 Left flank pain 57787415 9 R10.9 Right flank pain 2777743 09 R10.9 Blood in urine 07547636 R31.9 Health Concerns Section Related Observation LastModified by Organization Detai ls LastModified Time None Recorded Concern Status LastModified by Organization Details LastModified Time None Recorded Advance Directives Directive None Recorded Payers Encounter Date Sequence Insurance Name Policy Number Policy Martinez Covered Member ID Martinez Member ID Guarantor Name 10/17/2024 1 [facility] - DOS ON OR AFTER 2023 - DUAL ELIGIBLE - [facility] OPTIONS AND ONE CARE (MEDICARE REPLACEMENT/ADV ANTAGE - HMO) Olivia Stafford [id number] Olivia Stafford 10/24/2024 1 [facility] - DOS ON OR AFTER 2023 - DUAL ELIGIBLE - [facility] OPTIONS AND ONE CARE (MEDICARE REPLACEMENT/ADV ANTAGE - HMO) Olivia Stafford [id number] Olivia Stafford Notes Date Note Type Note Provider Name and Address Organization Details Recorded Time 10/17/2024 text/html HPI: Lipid disorder, insomnia, BL tinnitus, COPD, OA, idiopathic scoliosis, neck pain, Osteoporosis, hx. cervical spinal fusion, pain in left hip. .................... .................... .................... .................... .................... .................... .................... . [facility] Nurse Triage Notes (Jennifer Willinghma): Chief Complaints: Back pain, Breathing problems, Cough, [...] .................... .................... .................... .................... .................... .................... . It Compliance Manager Note From [employer]: This 64-year-old female [...] .................... .................... .................... .................... .................... .................... . [facility] Consulted: Marquez Mckinley .................... .................... .................... .................... .................... .................... .................... . Disposition: Fulfilled MARQUEZ MCKINLEY MD [address] [place] [address],[address], [place], [address], [employer] 10/17/2024 14:12:38 10/24/2024 text/html CRC Nurse Triage [...] taking any OTC meds for symptoms relief. It Compliance Manager Organization Information for [employer] Business Legal Name: [facility] Address: [address] [place] [address], Orthotist Prosthetist: Abhay Larkin MD CLIA No.: [id number] It Compliance Manager POC Test Results from [employer] [facility] (09:46:34) pH: 7.38 pH units [...] .................... .................... .................... .................... .................... .................... . It Compliance Manager Note From [employer]: This 64-year-old female [...] mL IV and Toradol 15 mg IVP. [facility] spoke directly to the patient and advised her that an ED eval is indicated to rule out a kidney stone. Patient is agreeable for an ED evaluation at [facility]. Patient would prefer to have her drive her right now. The patient was given the opportunity to ask questions and is agreeable to this plan. .................... .................... .................... .................... .................... .................... .................... . [facility] Consulted: Vineet Beckman .................... .................... .................... .................... .................... .................... .................... . Disposition: Fulfilled VINEET BECKMAN MD [address] [facility], [place], [address], [employer] 10/24/2024 10:53:47 OBGyn Episode No OBEpisode recorded.
--- OUTSIDE RECORDS SUMMARY | 2024-11-15 09:05 | XMS_ITS | Continuity of Care Document ---
Author Organization [employer] Address [address] [place] [address] Care Team Providers Care Data Warehouse Analyst Name Role Phone HIM CCA OTHER TRAV [...] for ongoing pain management and PT referral. [email or web address] Not available 10/17/2024 14:12:30 Plan of Treatment [...] SNOMED-CT Code Diagnosis ICD10 Code Diagnosis Note [id number] LIEN MCKINLEY MD [address] [phone] 10/17/2024 12:31:55 10/17/2024 14:30:58 Low back pain [id number] M54.50 Health Concerns Section Related Observation LastModified by Organization Detai ls LastModified Time None Recorded Concern Status LastModified by Organization Details LastModified Time None Recorded Payers Encounter Date Sequence Insurance Name Policy Number Policy Martinez Covered Member ID Martinez Member ID Guarantor Name 10/17/2024 1 [facility] - DOS ON OR AFTER 2023 - DUAL ELIGIBLE - RESIDENTIAL OPTIONS AND ONE CARE (MEDICARE REPLACEMENT/ADV ANTAGE - HMO) Olivia Stafford [id number] Olivia Nydia Notes Date Note Type Note [...] .................. .................. .................. .................. .................. .................. ............... Lease Operator Note From [employer]: This 64-year-old [...] .................. .................. .................. .................. .................. .................. ............... [facility] Consulted: Lien Mckinley .................. .................. .................. .................. .................. .................. .................. ............... Disposition: Fulfilled LIEN MCKINLEY MD [address] [facility],[address] [facility], [place], [address], [employer] 10/17/2024 14:12:38 OBGyn Episode No OBEpisode recorded.
--- OUTSIDE RECORDS SUMMARY | 2024-11-15 09:05 | XMS_ITS ---
Author Organization [facility] Address [address] [place] [address] Care Team Providers Care Customer Field Representative Name Role Phone TRAV BOGGS Primary Care Provider Bulmaro Cali [phone] REASON FOR VISIT campbylobacter enteritis Encounters Encounter Location Date Provider Diagnosis [facility] [address] [place] [address] 05/10/2024 Bulmaro Montilla PLAN OF TREATMENT No Information
--- OUTSIDE RECORDS SUMMARY | 2024-11-15 09:05 | XMS_ITS | Patient Health Record ---
Author Organization [facility] Address [address] [place] [address] Care Team Providers Care Filling Machine Set Up Mechanic Name Role Phone TRAV BOGGS Primary Care Provider Bulmaro Cali [phone] REASON FOR REFERRAL No Information SOCIAL HISTORY Sex Assigned At : Social History Observation Description Sex Assigned At Unknown Encounters Encounter Location Date Provider Diagnosis [facility] [address] [facility] [address] [place] [address] 05/10/2024 Bulmaro Montilla PLAN OF TREATMENT No Information Insurance Providers Payer Name Payer Address Payer Phone Subscriber Number Group Number Insured Name Patient Relationship to Insured Coverage Start Date Coverage End Date [facility] [address] [place] [address] [id number] KAYLAN KEITA Self - patient is the insured
[2024-11-15 09:56] LABS: Appearance Urine Clear; Color Urine Yellow; Glucose Urine UA Negative (Negative); Leukocyte Esterase Urine Negative (Negative); Nitrite Urine Negative (Negative); UMIC TRIGGER UACC YES; Urine Blood Small (1+) (Negative); Urine Ketones Negative (Negative); Urine Protein Negative (Neg-Trace)
[2024-11-15 10:00] LABS: Bacteria Urine None Seen (None Seen); Hyaline Casts Urine 0-2 /LPF (0-2); Squamous Epithelial Cell Urine 0-2 /HPF (0-2); WBC Urine 0-5 /HPF (0-5)
== END 2024-11-15 07:45 | disposition home or self-care (01) ==
LOC: HO.LAB 07:44
PROVIDERS: PCP Nurse Practitioner Family; Visit Provider Nurse Practitioner Family
DX: R10.2 Pelvic and perineal pain (principal); M54.50 Low back pain, unspecified
CPT/HCPCS: 81001; 81003; 87086; 96127; 99212

== ENCOUNTER 2024-11-22 14:33 | Outpatient (AMB) | payer OTHER, SELFPAY ==
[2024-11-22 14:38] VITALS: BP 118/60; PULSE 77; O2SAT 99; BMI 23.2
--- NOTE | 2024-11-22 14:38 | A.OFFVIS_ITS ---
Vital Signs 11/22/24 14:38 Height 5 ft 2 in Weight 126 lb 12.253 oz BMI 23.2 BP 118/60 Blood Pressure Location Rt brachial Position Sitting Pulse 77 Pulse Source Pulse Oximeter Pulse Oximetry (%) 99 Oxygen Delivery Method Room Air Intake Visit Reasons: copd Allergies buspirone Adverse Reaction (Intermediate, Verified 11/22/24 14:40) vomiting varenicline [From Chantix] Adverse Reaction (Intermediate, Verified 11/22/24 14:40) Mood changes, anger Wellbutrin Adverse Reaction (Intermediate, Uncoded 11/22/24 14:40) vomiting HPI Comments Details: The patient is here for pulmonary evaluation. The patient is a 64 year woman with a known diagnosis of COPD. The patient has been an active smoker for many years. Although, she would like to quit. She did have a significant illness resulting in a COPD exacerbation which she required prednisone antibiotics. The after that she did follow-up with the primary care doctor started her on Trelegy. This has been very helpful for her. Denies any significant shortness of breath with activity. We did look at her lung cancer screening CT scan. I personally reviewed with her. She does have moderate degree of emphysema already. Explained to her that this is only going to get worse if she continues to smoke. She also has small pulmonary nodules that will continue to have follow-up every year as long as she maintains her RADS 2. The patient has tried to quit before. She has had bad reactions to both Wellbutrin and Chantix. Therefore she can not use dose. She is willing to try nicotine supplementation therapy. Therefore, 14 mg nicotine patch. In for breakthrough she can try the Nicotrol inhaler. If we can not get the Nicotrol inhaler also another nuclear red gum. Her next CT scans going to be in the next few weeks. Hopefully continues to be stable. Patient seems to be doing okay so will follow-up in the next 6-8 months. If she has any issues prior to that she will call for an earlier assessment. [facility] Medical History (Updated 11/22/24 @ 15:15 by Alejandro Brown MD) Pulmonary nodules Arthritis Nicotine dependence, cigarettes, uncomplicated Dyslipidemia Multiple adenomatous polyps Urinary incontinence Sleep apnea Osteoporosis (~2014) HLA B27 (HLA B27 positive) Palpitations COPD (chronic obstructive pulmonary disease) Depression, major, recurrent Surgical History History of colonoscopy History of foot surgery (~2018) History of vaginal surgery (~2005) History of eye surgery (~2013) History of spinal fusion (~2013) History of vaginal hysterectomy (~2003) History of laparoscopy (~2001) Family History Father CVD (cardiovascular disease) Mother Kidney failure CHF (congestive heart failure) Atherosclerosis Atherosclerotic peripheral vascular disease Foot ulcer CVD (cardiovascular disease) Sister History of heart attack Brother CVD (cardiovascular disease) HTN (hypertension) Maternal Grandfather Unknown family medical history Maternal Grandmother Unknown family medical history Paternal Grandmother Bladder cancer Paternal Grandfather History of CVA (cerebrovascular accident) Other Mental health disorder Social History Housing: House Alcohol intake: current Alcohol intake frequency: a few times a week Alcohol type: wine Patient Tobacco Use Status: Current everyday Tobacco user Tobacco use type: Cigarette Cigarette Packs Per Day: 0.5 Cigarettes Per Day: 10.0 Years Smoked: 40 e-Cigarette/Vaping Use: Never Used Second Hand Smoke Exposure: Yes Current occupational status: disabled Cognitive needs: No Hearing needs: No Vision needs: Yes Review of Systems Const Denies fever(s) Eyes Reports no additional complaints ENT Reports change in voice Card Denies chest pain Resp Reports cough and Denies wheezing GI Reports no additional complaints Musc Reports back pain Skin/Breast Denies rash Neuro Reports no additional complaints True/Lymph Reports no additional complaints Aller/Immun Denies wheezing Physical Exam Vital Signs: Last Vital Signs Pulse 77 11/22/24 14:38 BP 118/60 11/22/24 14:38 Pulse Ox 99 11/22/24 14:38 Oxygen Delivery Method Room Air 11/22/24 14:38 BMI result Body Mass Index 23.2 Const General: comfortable HEENT Head: Yes normocephalic Neck Neck: Yes supple Chest Chest palpation & inspection: normal inspection of the chest Resp Effort & Inspection: normal respiratory effort Auscultation: diminished lung sounds Cardio Heart sounds: S1 normal heart sound present and S2 normal heart sound present GI Palpation (GI): Soft to palpation Skin General skin exam: no rashes or lesions noted Extrem General: Yes normal exam except as noted Assessment & Plan Assessment & Plan (1) COPD (chronic obstructive pulmonary disease): Code(s): J44.9 - Chronic obstructive pulmonary disease, unspecified Category: Medical Qualifiers: COPD type: emphysema Emphysema type: centrilobular Qualified Code(s): J43.2 - Centrilobular emphysema (2) Nicotine dependence, cigarettes, uncomplicated: Comment: (current smoker - 20+PYH) Code(s): F17.210 - Nicotine dependence, cigarettes, uncomplicated Category: Medical (3) Pulmonary nodules: Code(s): R91.8 - Other nonspecific abnormal finding of lung field Category: Medical Plan continue Trelegy ROSE as needed continue LDCT tobacco cessation: nicotine patch and nicotrol inhaler or nicorette gum for breakthrough does not want to have PFTs F/U 6-8 months Medications: New nicotine (Nicotrol) 10 mg inhalation Q2-4H PRN 168 ea 0RF nicotine cravings 30 days nicotine (Nicoderm CQ) 1 patch transdermal DAILY 28 ea 5RF 28 days Coding Level of Care Code New Pt Level 4 (80905) Diagnoses Centrilobular emphysema J43.2 COPD type: emphysema Emphysema type: centrilobular Nicotine dependence, cigarettes, uncomplicated F17.210 Pulmonary nodules R91.8 Time Spent (min) 37
--- OUTSIDE RECORDS SUMMARY | 2024-11-22 17:04 | XMS_ITS | Continuity of Care Document ---
Author Organization [employer], Id in - [employer] Address [address] [place] [address] Care Team Providers Care Revenue Settlements Administrator Name Role Phone HIM CCA OTHER TRAV BOGGS Primary Care Provider Assessment Encounter Date Assessment Date Assessment LastModified by Organization Details LastModified Time 10/24/2024 10/24/2024 As noted, we were called to see this patient regarding concerns of bilateral flank pain. Evaluation in the field was performed by my entomology teacher colleague, as noted above, I provided real-time [...] worse. On the physical exam by the entomology teacher the patient has clear lung sounds. She [...] patient's took her to the ER at [facility] 5) I called a quick report to the emergency medicine position on duty and discuss this patient with her Disposition to the ER We discussed the situation and I recommended referral to the emergency department. This was based on abdominal pain [email or web address] Not available 10/24/2024 10:48:11 Plan of Treatment Reminders Order Date Submit Date Provider Last Modified By Organization Details Last Modified Time Details Appointments None recorded. Lab urinalysis, dipstick [email or web address], [address], 4 10:51:50 BMP, serum or plasma 2023 [email or web address] 7 [facility], [address] [place] [address], [address], 4 10:51:50 Referral None recorded. Procedures None recorded. Surgeries None recorded. Imaging None recorded. Medication Orders ketorolac 30 mg/mL injection solution 2023 [email or web address] [address] [facility]03[facility], [address] [place] [address], [address], 4 10:51:50 sodium chloride 0.9 % intravenous solution 2023 [email or web address] [address] [facility]0315, [address] [place], [address], 4 10:51:50 Patient TargetsNo targets recorded. Patient [...] SNOMED-CT Code Diagnosis ICD10 Code Diagnosis Note [id number] MARQUEZ MCKINLEY MD Main - [facility] [address] [place] [phone] 10/17/2024 12:31:55 10/17/2024 14:30:58 Low back pain [id number] M54.50 [id number] [facility] [address] [place] [phone] 10/24/2024 09:43:21 10/24/2024 11:55:37 Abdominal pain 80343287 R10.9 Left flank pain [id number] 9 R10.9 Right flank pain 7101898 09 R10.9 Blood in urine 99680327 R31.9 Health Concerns Section Related Observation LastModified by Organization Detai ls LastModified Time None Recorded Concern Status LastModified by Organization Details LastModified Time None Recorded Payers Encounter Date Sequence Insurance Name Policy Number Policy Martinez Covered Member ID Martinez Member ID Guarantor Name 10/24/2024 1 [facility] - DOS ON OR AFTER 2023 - DUAL ELIGIBLE - NURSING HOME OPTIONS AND ONE CARE (MEDICARE REPLACEMENT/ADV ANTAGE - HMO) Olivia Stafford [id number] Olivia Stafford Notes Date Note Type Note [...] taking any OTC meds for symptoms relief. Child Life Therapist Organization Information for Jeromevictoriano [employer] - [employer] Business Legal Name: [employer] Address: [address] [place] [address], [place] Christine [address], Fly Finisher: Abhay GARCIA No.: [id number] Child Life Therapist POC Test Results from [employer] [facility] (:46:34) pH: 7.38 pH units pCO2: 50.0 [...] .................... .................... .................... .................... .................... .................... . Child Life Therapist Note From [employer]: This 64-year-old female [...] mL IV and Toradol 15 mg IVP. [facility] spoke directly to the patient and advised her that an ED eval is indicated to rule out a kidney stone. Patient is agreeable for an ED evaluation at [facility]. Patient would prefer to have her drive her right now. The patient was given the opportunity to ask questions and is agreeable to this plan. .................... .................... .................... .................... .................... .................... .................... . [facility] Consulted: Vineet Beckman .................... .................... .................... .................... .................... .................... .................... . Disposition: Fulfilled VINEET BECKMAN MD [address] [facility],[address], [place], [address], [employer] 10/24/2024 10:53:47 OBGyn Episode No OBEpisode recorded.
--- OUTSIDE RECORDS SUMMARY | 2024-11-22 17:04 | XMS_ITS | Data Portability ---
Author Organization [employer], Wy [employer] Address [address] [place] [address] Care Team Providers Care Vocational Training Director Name Role Phone HIM CCA OTHER TRAV [...] for ongoing pain management and PT referral. [email or web address] Not available 10/17/2024 14:12:30 10/24/2024 10/24/2024 As noted, we heena e called to see this patient regarding concerns of bilateral flank pain. Evaluation in the field was performed by my design architect colleague, as noted above, I provided real-time [...] worse. On the physical exam by the design architect the patient has clear lung sounds. She [...] patient's took her to the ER at [facility] 5) I called a quick report to the emergency medicine position on duty and discuss this patient with her Disposition to the ER We discussed the situation and I recommended referral to the emergency department. This was based on abdominal pain [email or web address] Not available 10/24/2024 10:48:11 Plan of Treatment Reminders Order Date Submit Date Provider Last Modified By Organization Details Last Modified Time Details Appointments None recorded. Lab urinalysis, dipstick 2023 [email or web address], [address], 10:51:50 BMP, serum or plasma 2023 024 [email or web address], [address], 10:51:50 Referral None recorded. Procedures None recorded. Surgeries None recorded. Imaging None recorded. Medication Orders ketorolac 30 mg/mL injection solution 2023 024 [email or web address] Not available 12:33:00 ketorolac 30 mg/mL injection solution 2023 024 [email or web address] 7 [facility], [address] [place], [address], 10:51:50 sodium chloride 0.9 % intravenous solution 2023 024 [email or web address] 7 [facility], [address] [place], [address], 10:51:50 Patient TargetsNo targets recorded. Patient InstructionsNo [...] % 124 mm[Hg] 74 mm[Hg] Not Available [employer] - production 12:31:58 Date Recorded Oxygen saturation Oxygen saturation in Arterial blood by Pulse oximetry Heart rate Body temperature Respiratory rate Systolic blood pressure Diastolic blood pressure Provider Name and Address Organization Details Last Updated DateTime 4 98 % 98 % 88 /min 98.9 [degF] 16 /min 120 mm[Hg] 74 mm[Hg] Not Available [employer] - production 09:43:23 Social History None recorded. Functional Status None recorded. Mental Status None recorded. Family History Nothing Reported. Medical History No medical history recorded. Gynecological HistoryNo gynecological history recorded. Obstetrics History GPAL:G 0 P 0 0 0 0 Past Encounters Encounter ID Performer Location Encounter Start Date Encounter Closed Date Diagnosis/Indication Diagnosis SNOMED-CT Code Diagnosis ICD10 Code Diagnosis Note [id number] MARQUEZ MCKINLEY MD Main - [facility] [address] [place] [phone] 10/17/2024 12:31:55 10/17/2024 14:30:58 Low back pain [id number] M54.50 [id number] VINEET BECKMAN MD Main - [facility] [address] [place] [address] 10/24/2024 09:43:21 10/24/2024 11:55:37 Abdominal pain 53399314 R10.9 Left flank pain 67487523 9 R10.9 Right flank pain 0367163 09 R10.9 Blood in urine 63698860 R31.9 Health Concerns Section Related Observation LastModified by Organization Detai ls LastModified Time None Recorded Concern Status LastModified by Organization Details LastModified Time None Recorded Advance Directives Directive None Recorded Payers Encounter Date Sequence Insurance Name Policy Number Policy Martinez Covered Member ID Martinez Member ID Guarantor Name 10/17/2024 1 [facility] - DOS ON OR AFTER 2023 - DUAL ELIGIBLE - ASSISTED OPTIONS AND ONE CARE (MEDICARE REPLACEMENT/ADV ANTAGE - HMO) Olivia Stafford [id number] Olivia Stafford 10/24/2024 1 [facility] - DOS ON OR AFTER 2023 - DUAL ELIGIBLE - ASSISTED OPTIONS AND ONE CARE (MEDICARE REPLACEMENT/ADV ANTAGE - HMO) Olivia Stafford [id number] Olivia Stafford Notes Date Note Type Note [...] .................... .................... .................... .................... .................... .................... . Bounty Trapper Note From [employer]: This 64-year-old female [...] .................... .................... .................... .................... .................... .................... . [facility] Consulted: Marquez Mckinley .................... .................... .................... .................... .................... .................... .................... . Disposition: Fulfilled MARQUEZ MCKINLEY MD [address] [place] [address],[address], [place], [address], [employer] 10/17/2024 14:12:38 10/24/2024 text/html CRC Nurse Triage [...] taking any OTC meds for symptoms relief. Bounty Trapper Organization Information for [employer] Business Legal Name: [facility] Address: [address] [place] [address], Spindraw Operator: Abhay Larkin MD CLIA No.: [id number] Bounty Trapper POC Test Results from [employer] [facility] (09:46:34) pH: 7.38 pH units [...] .................... .................... .................... .................... .................... .................... . Bounty Trapper Note From [employer]: This 64-year-old female [...] mL IV and Toradol 15 mg IVP. [facility] spoke directly to the patient and advised her that an ED eval is indicated to rule out a kidney stone. Patient is agreeable for an ED evaluation at [facility]. Patient would prefer to have her drive her right now. The patient was given the opportunity to ask questions and is agreeable to this plan. .................... .................... .................... .................... .................... .................... .................... . [facility] Consulted: Vineet Beckman .................... .................... .................... .................... .................... .................... .................... . Disposition: Fulfilled VINEET BECKMAN MD [address] [facility],[address], [place], [address], [employer] 10/24/2024 10:53:47 OBGyn Episode No OBEpisode recorded.
--- OUTSIDE RECORDS SUMMARY | 2024-11-22 17:04 | XMS_ITS ---
Author Organization [facility] Address [address] [place] [address] Care Team Providers Care City Library Director Name Role Phone TRAV BOGGS Primary Care Provider Bulmaro Cali [phone] REASON FOR VISIT campbylobacter enteritis Encounters Encounter Location Date Provider Diagnosis [facility] [address] [place] [address] 05/10/2024 Bulmaro Montilla PLAN OF TREATMENT No Information
--- OUTSIDE RECORDS SUMMARY | 2024-11-22 17:04 | XMS_ITS | Continuity of Care Document ---
Author Organization [employer] Address [address] [place] [address] Care Team Providers Care Resource Management Specialist Name Role Phone HIM CCA OTHER TRAV BOGGS Primary Care Provider [phone] Assessment Encounter Date Assessment Date Assessment LastModified [...] for ongoing pain management and PT referral. [email or web address] Not available 10/17/2024 14:12:30 Plan of Treatment [...] SNOMED-CT Code Diagnosis ICD10 Code Diagnosis Note [id number] LIEN MCKINLEY MD [address] [phone] 10/17/2024 12:31:55 10/17/2024 14:30:58 Low back pain [id number] M54.50 Health Concerns Section Related Observation LastModified by Organization Detai ls LastModified Time None Recorded Concern Status LastModified by Organization Details LastModified Time None Recorded Payers Encounter Date Sequence Insurance Name Policy Number Policy Martinez Covered Member ID Martinez Member ID Guarantor Name 10/17/2024 1 [facility] - DOS ON OR AFTER 2023 - DUAL ELIGIBLE - LONG TERM OPTIONS AND ONE CARE (MEDICARE REPLACEMENT/ADV ANTAGE - HMO) Olivia Stafford [id number] Olivia Nydia Notes Date Note Type Note [...] .................. .................. .................. .................. .................. .................. ............... Toy Department Manager Note From [employer]: This 64-year-old [...] .................. .................. .................. .................. .................. .................. ............... [facility] Consulted: Lien Mckinley .................. .................. .................. .................. .................. .................. .................. ............... Disposition: Fulfilled LIEN MCKINLEY MD [address] [facility],[address] [facility], [place], [address], [employer] 10/17/2024 14:12:38 OBGyn Episode No OBEpisode recorded.
--- OUTSIDE RECORDS SUMMARY | 2024-11-22 17:05 | XMS_ITS | Patient Health Record ---
Author Organization [facility] Address [address] [place] [address] Care Team Providers Care Cylinder Die Machine Operator Name Role Phone TRAV BOGGS Primary Care Provider Bulmaro Cali [phone] REASON FOR REFERRAL No Information SOCIAL HISTORY Sex Assigned At : Social History Observation Description Sex Assigned At Unknown Encounters Encounter Location Date Provider Diagnosis [facility] [address] [facility] [address] [place] [address] 05/10/2024 Bulmaro Montilla PLAN OF TREATMENT No Information Insurance Providers Payer Name Payer Address Payer Phone Subscriber Number Group Number Insured Name Patient Relationship to Insured Coverage Start Date Coverage End Date [facility] [address] [place] [address] [id number] KAYLAN KEITA Self - patient is the insured
== END 2024-11-22 15:04 | disposition home or self-care (01) ==
PROVIDERS: PCP Nurse Practitioner Family; Visit Provider Hospitalist
DX: J43.2 Centrilobular emphysema (principal); F17.210 Nicotine dependence, cigarettes, uncomplicated; R91.8 Other nonspecific abnormal finding of lung field
CPT/HCPCS: 99204

== ENCOUNTER → 2024-11-22 14:33 | Outpatient (BNVA) | payer OTHER, SELFPAY | PROVIDERS: PCP Nurse Practitioner Family; Visit Provider Hospitalist | DX: J43.2 Centrilobular emphysema (principal); R91.8 Other nonspecific abnormal finding of lung field; F17.210 Nicotine dependence, cigarettes, uncomplicated | CPT/HCPCS: 99202 ==

== ENCOUNTER 2025-02-21 08:07 | Outpatient (AMB) | payer OTHER, SELFPAY ==
--- OUTSIDE RECORDS SUMMARY | 2025-02-21 08:12 | XMS_ITS ---
Author Organization [facility] Address [address] [place] [address] Care Team Providers Care Barrel Rifler Hook Name Role Phone TRAV BOGGS Primary Care Provider Bulmaro Cali [phone] REASON FOR VISIT campbylobacter enteritis Encounters Encounter Location Date Provider Diagnosis [facility] [address] [place] [address] 05/10/2024 Bulmaro Montilla Plan Of Treatment No Information Progress Notes * KAYLAN KEITA TDOB:1960 (64 yo F)Acc No.[id number]:05/10/2024 Progress Notes Patient:?KAYLAN KEITA Provider:?Bulmaro Montilla MD :1960???Age:64 Y???Sex:Female D ate:05/10/2024 Address:[address] [place], [place] [id number] Pcp:TRAV BOGGS Subjective: * Chief Complaints: * ???1. Campbylobacter enterit is. * Medical History:? Objective: * Vitals:? Assessment: Plan: * Treatment: * * The named appointment provid er may or may not be the originator of this progress note, and it is not deemed complete until electronically signed by the appointment provider. Sign off status: Pending * Provider:?Bulmaro Montilla MD Date:? 024 Generated for Surjit elise/Britney/eTransmitting on:?02/21/2025 08:12 AM EDT
--- OUTSIDE RECORDS SUMMARY | 2025-02-21 08:12 | XMS_ITS | Data Portability ---
Author Organization [employer]d [employer] Address [address] [place] [address] Care Team Providers Care Senior Staff Consultant Name Role Phone HIM CCA OTHER TRAV [...] for ongoing pain management and PT referral. [email or web address] Not available 10/17/2024 14:12:30 10/24/2024 10/24/2024 As noted, we heena e called to see this patient regarding concerns of bilateral flank pain. Evaluation in the field was performed by my craps manager colleague, as noted above, I provided real-time [...] worse. On the physical exam by the craps manager the patient has clear lung sounds. She [...] patient's took her to the ER at [facility] 5) I called a quick report to the emergency medicine position on duty and discuss this patient with her Disposition to the ER We discussed the situation and I recommended referral to the emergency department. This was based on abdominal pain [email or web address] Not available 10/24/2024 10:48:11 Plan of Treatment Reminders Order Date Submit Date Provider Last Modified By Organization Details Last Modified Time Details Appointments None recorded. Lab urinalysis, dipstick [email or web address], [address] 4 10:51:50 BMP, serum or plasma 2023 024 [email or web address] [address], [address] 10:51:50 Referral None recorded. Procedures None recorded. Surgeries None recorded. Imaging None recorded. Medication Orders ketorolac 30 mg/mL injection solution 2023 024 [email or web address] 7 [facility], [address] [place], [address], 10:51:50 sodium chloride 0.9 % intravenous solution 2023 024 [email or web address] 7 [facility], [address] [place], [address], 4 10:51:50 ketorolac 30 mg/mL injection solution 2023 024 [...] 74 mm[Hg] Not Available [employer] - production 12:31:58 Date Recorded Oxygen saturation Oxygen saturation in Arterial blood by Pulse oximetry Heart rate Body temperature Respiratory rate Systolic blood pressure Diastolic blood pressure Provider Name and Address Organization Details Last Updated DateTime 4 98 % 98 % 88 /min 98.9 [degF] 16 /min 120 mm[Hg] 74 mm[Hg] Not Available [employer] - production 09:43:23 Social History None recorded. Functional Status None recorded. Mental Status None recorded. Family History Nothing Reported. Medical History No medical history recorded. Gynecological HistoryNo gynecological history recorded. Obstetrics History GPAL:G 0 P 0 0 0 0 Past Encounters Encounter ID Performer Location Encounter Start Date Encounter Closed Date Diagnosis/Indication Diagnosis SNOMED-CT Code Diagnosis ICD10 Code Diagnosis Note [id number] MARQUEZ MCKINLEY MD Main - [facility] [address] [place] [address] 10/17/2024 12:31:55 10/17/2024 14:30:58 Low back pain [id number] M54.50 [id number] VINEET BECKMAN MD Main - [facility] [address] [place] [address] 10/24/2024 09:43:21 10/24/2024 11:55:37 Abdominal pain 98426273 R10.9 Left flank pain 73417193 9 R10.9 Right flank pain 6270495 09 R10.9 Blood in urine 94444631 R31.9 Health Concerns Section Related Observation LastModified by Organization Detai ls LastModified Time None Recorded Concern Status LastModified by Organization Details LastModified Time None Recorded Advance Directives Directive None Recorded Payers Encounter Date Sequence Insurance Name Policy Number Policy Martinez Covered Member ID Martinez Member ID Guarantor Name 10/17/2024 1 [facility] - DOS ON OR AFTER 2023 - DUAL ELIGIBLE - CORRECTION OPTIONS AND ONE CARE (MEDICARE REPLACEMENT/ADV ANTAGE - HMO) Olivia Stafford [id number] Olivia Stafford 10/24/2024 1 [facility] - DOS ON OR AFTER 2023 - DUAL ELIGIBLE - CORRECTION OPTIONS AND ONE CARE (MEDICARE REPLACEMENT/ADV ANTAGE - HMO) Olivia Stafford [id number] Olivia Stafford Notes Date Note Type Note [...] .................... .................... .................... .................... .................... .................... . Nurse Unit Manager Note From [employer]: This 64-year-old [...] .................... .................... .................... .................... .................... .................... . [facility] Consulted: Marquez Mckinley .................... .................... .................... .................... .................... .................... .................... . Disposition: Fulfilled MARQUEZ MCKINLEY MD [address] [place] [address],[address], [place], [address], [employer] 10/17/2024 14:12:38 10/24/2024 text/html CRC Nurse Triage [...] taking any OTC meds for symptoms relief. Nurse Unit Manager Organization Information for [employer] Business Legal Name: [facility] Address: [address] [place] [address], [place] [address], Self Contained Behavior Unit Teacher: Abhay Larkin MD CLIA No.: [id number] Nurse Unit Manager POC Test Results from [employer] [facility] (09:46:34) pH: 7.38 pH units pCO2: 50.0 [...] .................... .................... .................... .................... .................... .................... . Nurse Unit Manager Note From [employer]: This 64-year-old [...] mL IV and Toradol 15 mg IVP. [facility] spoke directly to the patient and advised her that an ED eval is indicated to rule out a kidney stone. Patient is agreeable for an ED evaluation at [facility]. Patient would prefer to have her drive her right now. The patient was given the opportunity to ask questions and is agreeable to this plan. .................... .................... .................... .................... .................... .................... .................... . [facility] Consulted: Vineet Beckman .................... .................... .................... .................... .................... .................... .................... . Disposition: Fulfilled VINEET BECKMAN MD [address] [facility],[address], [place], [address], [employer] 10/24/2024 10:53:47 OBGyn Episode No OBEpisode recorded.
--- OUTSIDE RECORDS SUMMARY | 2025-02-21 08:12 | XMS_ITS | Patient Health Record ---
Author Organization [facility] Address [address] [place] [address] Care Team Providers Care Manager Personnel Selection Name Role Phone TRAV BOGGS Primary Care Provider Bulmaro Cali [phone] Reason For Referral No Information Plan Of Treatment No Information Insurance Providers Payer Name Payer Address Payer Phone Subscriber Number Group Number Insured Name Patient Relationship to Insured Coverage Start Date Coverage End Date [facility] [address] [place] [address] [id number] KAYLAN KEITA Self - patient is the insured
--- NOTE | 2025-02-21 08:45 | MHC.OFFVIS ---
Intake Visit Reasons: Pelvic and perineal pain Intake Note: Patient presents to office today for pelvic and perineal pain medications: none Blood thinners: none Pocket Creaser Required: No Accompanied by: Self / Same As Patient Allergies buspirone Adverse Reaction (Intermediate, Verified 02/21/25 09:03) vomiting varenicline [From Chantix] Adverse Reaction (Intermediate, Verified 02/21/25 09:03) Mood changes, anger Wellbutrin Adverse Reaction (Intermediate, Uncoded 11/22/24 14:40) vomiting Medication List - Last Reconciled 02/21/25 by Pati Vasquez MD ezetimibe (Zetia) 10 mg PO DAILY 90 days vqwl-wzsix-vne-D3-hyal-elsy bor 750 mg-100 mg- 25 mcg tabs PO nicotine (Nicotrol) 10 mg inhalation Q2-4H PRN 30 days nicotine (Nicoderm CQ) 1 patch transdermal DAILY 28 days nicotine (polacrilex) (Nicorette) 2 mg buccal Q2H 30 days omega 7-wof-vlw-fish oil 300-1,000 mg (Fish Oil) 1 cap PO DAILY 90 days paroxetine HCl 40 mg PO QAM 90 days rosuvastatin 20 mg PO DAILY trazodone 100 mg PO BEDTIME 90 days HPI Comments Details: 02/21/25-- History of Present Illness The patient is a 64-year-old female presenting with urinary symptoms and evaluation for hematuria. She reports recurrent detection of blood in her urine over the years, linked to the presence of benign renal cysts. Recent imaging studies have shown no significant changes in these cysts. She also suffers from abdominal and side pain, which is occasionally severe, and suggests a partial relief with the expulsion of gas. This pain recently led to an emergency visit with kidney stone concerns, but imaging only confirmed the presence of cysts. Her urinary symptoms include frequent daytime urination every 30 minutes, accompanied by urgency and incontinence, which are worsened by physical stress like coughing or sneezing. The patient continues to experience nocturia, needing to void up to three times nightly. She acknowledges experiencing temporary relief in bladder pressure after urination. Her past medical history includes treatment for anxiety and depression, and she is currently on medications affecting cholesterol. Urinary Symptoms Review - Frequent urination: approximately every 30 minutes during the day - Nocturia: 2-3 times per night - Urge incontinence: leaks triggered by urgency, coughing, or sneezing - Blood in urine detected during urinalysis - Consistent urgency and pressure relieved by urination - History of abdominal distension with severe pain Results - Imaging (CT scan in October): Simple benign renal cysts, no changes or new anomalies identified Discussion Notes We discussed the presence of blood in the urine, relating it to the renal cysts, and confirmed that imaging has shown no changes. I advised repeating a cystoscopy under anesthesia to examine the bladder thoroughly and take biopsies if necessary. I explained to the patient that should a biopsy be needed, it would be performed during the outpatient procedure at the hospital. The patient understands that someone must accompany her on the day of the procedure. Risks, including the potential need for a biopsy and anesthesia, were discussed. Additionally, I outlined that a pelvic exam would help in assessing any possible bladder prolapse, and further testing might be recommended based on the findings. The patient was informed about stopping fish oil five days prior to the procedure, and it was agreed to coordinate scheduling through insurance authorization with follow-up on Tuesdays. Plan I plan to conduct a cystoscopy under anesthesia to inspect the bladder thoroughly and perform biopsies if necessary. An accompanying evaluation for bladder prolapse will also be conducted, with additional testing based on findings. The patient will stop fish oil five days pre-procedure to minimize bleeding risks. Arrangements for scheduling through insurance authorization will proceed with follow-up care coordinated on Tuesdays. I advised smoking cessation for her broader health improvement, and we will monitor and manage her urinary frequency, nocturia, and urge incontinence as part of ongoing care strategies. Patient Instructions - Prepare for an outpatient cystoscopy under anesthesia with a hospital visit. - Arrange for someone to accompany you on the day of the procedure. - Stop taking fish oil five days before the planned procedure. - Expect a call from [facility] for procedure scheduling and to go over the dates. - Aim to reduce or quit smoking for better overall health outcomes. - Contact the office for any unexpected symptoms or concerns. - Follow instructions regarding pre-operative preparation closely. Patient was informed and verbally consented to the use of an ambient scribe for clinic note documentation during this visit. 02/13/23--Olivia is a 62-year-old female who presents to the office for cystoscopy and discussion of CT scan results. The patient is here for microscopic heamturia and complex renal cyst. The patient is an active cigarette smoker. Evaluation today: Blood: ?80 Lj/uL, leukocytes: negative. Consent was obtained to perform cystoscopy procedure. The patient was provided naproxen 500 mg and ciprofloxacin 500 mg x 1 dose pre-procedure today. Cystoscopy: no suspicious bladder lesion found. CAT scan results reviewed-- Right upper pole renal cyst- no enhancement c/w Simple cyst--. No imaging follow-up recommended. Plan: Simple/benign right renal cyst. No need for further management. Persistent Hematuria/Nicotine Dependence. Urine for cytology was ordered. Will continue to monitor Will consider repeat cystoscopy after three years. Follow-up in 6 months. [facility] Medical History Pulmonary nodules Arthritis Nicotine dependence, cigarettes, uncomplicated Dyslipidemia Multiple adenomatous polyps Urinary incontinence Sleep apnea Osteoporosis (~2014) HLA B27 (HLA B27 positive) Palpitations COPD (chronic obstructive pulmonary disease) Depression, major, recurrent Surgical History History of colonoscopy History of foot surgery (~2018) History of vaginal surgery (~2005) History of eye surgery (~2013) History of spinal fusion (~2013) History of vaginal hysterectomy (~2003) History of laparoscopy (~2001) Family History Father CVD (cardiovascular disease) Mother Kidney failure CHF (congestive heart failure) Atherosclerosis Atherosclerotic peripheral vascular disease Foot ulcer CVD (cardiovascular disease) Sister History of heart attack Brother CVD (cardiovascular disease) HTN (hypertension) Maternal Grandfather Unknown family medical history Maternal Grandmother Unknown family medical history Paternal Grandmother Bladder cancer Paternal Grandfather History of CVA (cerebrovascular accident) Other Mental health disorder Social History Housing: House Alcohol intake: current Alcohol intake frequency: a few times a week Alcohol type: wine Patient Tobacco Use Status: Current everyday Tobacco user Tobacco use type: Cigarette Cigarette Packs Per Day: 0.5 Cigarettes Per Day: 10.0 Years Smoked: 40 e-Cigarette/Vaping Use: Never Used Second Hand Smoke Exposure: Yes Current occupational status: disabled Cognitive needs: No Hearing needs: No Vision needs: Yes Results AMB Urinalysis, Automated UA Leukoctes 70 Amos/uL Last Edit by Kate Fisher on 02/21/25 10:35 UA Nitrite Negative Last Edit by Kate Fisher on 02/21/25 10:35 UA Urobilinogen 0.2 mg/dL Last Edit by Kate Fisher on 02/21/25 10:35 UA Protein 30 mg/dL Last Edit by Kate Fisher on 02/21/25 10:35 UA pH 6.0 Last Edit by Kate Fisher on 02/21/25 10:35 UA Blood 10 Lj/uL Last Edit by Kate Fisher on 02/21/25 10:35 UA Specific [place] 1.025 Last Edit by Kate Fisher on 02/21/25 10:35 UA Ketone Negative Last Edit by Kate Fisher on 02/21/25 10:35 UA Bilirubin 1 mg/dL Last Edit by Kate Fisher on 02/21/25 10:35 UA Glucose 0 mg/dL Last Edit by Kate Fisher on 02/21/25 10:35 AMB Urinalysis, Automated UA Leukoctes 0 Amos/uL Last Edit by Kate Fisher on 02/21/25 12:31 UA Nitrite Negative Last Edit by Kate Fisher on 02/21/25 12:31 UA Urobilinogen 0.2 mg/dL Last Edit by Kate Fisher on 02/21/25 12:31 UA Protein 0 mg/dL Last Edit by Kate Fisher on 02/21/25 12:31 UA pH 5.5 Last Edit by Kate Fisher on 02/21/25 12:31 UA Blood 25 Lj/uL Last Edit by Kate Fisher on 02/21/25 12:31 UA Specific [place] 1.015 Last Edit by Kate Fisher on 02/21/25 12:31 UA Ketone Negative Last Edit by Kate Fisher on 02/21/25 12:31 UA Bilirubin 0 mg/dL Last Edit by Kate Fisher on 02/21/25 12:31 UA Glucose 0 mg/dL Last Edit by Kate Fisher on 02/21/25 12:31 Results Reviewed Results Reviewed: Laboratory Last Values Urine pH (Auto) 6.0 02/21/25 10:10 Specific [place] (Auto) 1.025 02/21/25 10:10 Urine Protein (Auto) 30 mg/dL 02/21/25 10:10 Glucose (UA)(Auto) 0 mg/dL 02/21/25 10:10 Urine Ketones (Auto) Negative 02/21/25 10:10 Urine Blood (Auto) 10 Lj/uL 02/21/25 10:10 Urine Nitrite (Auto) Negative 02/21/25 10:10 Urine Bilirubin (Auto) 1 mg/dL 02/21/25 10:10 Urine Urobilinogen (Auto) 0.2 mg/dL 02/21/25 10:10 Leukocyte Esterase (Auto) 70 Amos/uL 02/21/25 10:10 Date of Service: 10/26/24 Procedure(s): CT abdomen pelvis w IV con Accession Number(s): [id number] cc: Carline Burnham DO; Melvin Lao [facility]-~ EXAMINATION: CT ABDOMEN AND PELVIS WITH CONTRAST CLINICAL INFORMATION: Lower abdominal pain COMPARISON: 10/24/2024 TECHNIQUE: Multidetector volumetric images were obtained from the superior aspect of the liver through the pubic symphysis following administration 85 mL of Omnipaque 350 intravenous contrast. Sagittal and coronal reformatted images were obtained on the technologist's workstation. Oral contrast: No This CT examination was performed using dose optimization techniques as appropriate, variously including the following: *Automated exposure control *Adjustment of mA and/or kV according to patient size (this includes techniques or standardized protocols for targeted exams where dose is matched to indication/reason for exam; i.e. extremities or head) *Use of iterative reconstruction technique DLP: 335 mGy-cm FINDINGS: LUNG BASES: Unremarkable. ABDOMINAL AND PELVIC WALL: Unremarkable. LIVER AND BILIARY TREE: Unremarkable. GALLBLADDER: Unremarkable. PANCREAS: Unremarkable. SPLEEN: Unremarkable. ADRENAL GLANDS: Unremarkable. KIDNEYS AND URETERS: Benign-appearing right renal cyst. Followup imaging is not routinely recommended for benign appearing cysts. GASTROINTESTINAL TRACT: Unremarkable. Appendix is within normal limits. VASCULAR: Aortic atherosclerotic calcifications, no aneurysmal dialation. LYMPH NODES/PERITONEUM: No lymphadenopathy. FREE FLUID: None. BLADDER: Unremarkable. PELVIC VISCERA: Unremarkable. OSSEOUS STRUCTURES: Degenerative changes of the spine. CT/CT abdomen pelvis w IV con IMPRESSION: No acute intra-abdominal abnormality. Date of Service: 01/30/23 EXAMINATION: CT ABDOMEN WITHOUT AND WITH CONTRAST CLINICAL INFORMATION: Renal cyst? COMPARISON: Previous CT of the abdomen and pelvis August 2022 and intraperitoneal ultrasound October 2022? TECHNIQUE: Contiguous axial thin section helical images of the abdomen were performed before and after the administration of oral contrast and? 85 mL of Omnipaque 350 intravenous contrast. The data set was reformatted in the coronal and sagittal planes and reviewed on an independent workstation. This CT examination was performed using dose optimization techniques as appropriate, variously including the following: *Automated exposure control *Adjustment of mA and/or kV according to patient size (this includes techniques or standardized protocols for targeted exams where dose is matched to indication/reason for exam; i.e. extremities or head) *Use of iterative reconstruction technique DLP: 188 mGy-cm FINDINGS: LUNG BASES: Small nodule versus atelectasis in the medial segment of the right middle lobe is stable. The lung bases are otherwise clear. LIVER, GALLBLADDER, AND BILIARY TREE: Small 2 to 3 mm low-attenuation liver lesion high in the dome axial image 15 series 4. This is difficult to characterize due to small size probably represent a tiny cyst. The liver is otherwise normal. Normal gallbladder. No biliary duct dilatation.? PANCREAS: Normal? SPLEEN: Normal? ADRENAL GLANDS AND KIDNEYS: The adrenal glands are normal. There is a 0.9 x 1.2 cm cyst in the upper pole right kidney. Hounsfield units precontrast measure 10. Hounsfield units postcontrast measure 13 without evidence of enhancement. There is a smaller 6 mm cyst in the lower pole of the right kidney. This is difficult to appreciate precontrast. No imaging follow-up recommended. The left kidney is normal. BOWEL LOOPS: Stool throughout the colon questionable for constipation. Small and large bowel is otherwise normal.? LYMPH NODES: Normal. VASCULAR: Atherosclerotic disease. No aneurysm. BONES: Degenerative disc disease spondylolysis and spondylolisthesis at L5-S1. IMPRESSION: Right renal cysts. No imaging follow-up recommended. Normal left kidney. Probable tiny liver cyst. Assessment & Plan Assessment & Plan Orders: Orders AMB Urinalysis Automated Today Z13.9 - Encounter for screening, unspecified FISH Bladder Cancer Today R10.2 - Pelvic and perineal pain, R31.29 - Other microscopic hematuria AMB Urinalysis Automated Today Z13.9 - Encounter for screening, unspecified Coding
== END 2025-02-21 09:16 | disposition home or self-care (01) ==
PROVIDERS: PCP Nurse Practitioner Family; Visit Provider Urology
DX: Z13.9 Encounter for screening, unspecified (principal)

== ENCOUNTER 2025-02-21 08:07 | Outpatient (REF) | payer OTHER, SELFPAY | END 2025-02-21 08:08 | disposition home or self-care (01) | LOC: HO.LNP 08:07 | PROVIDERS: PCP Nurse Practitioner Family; Visit Provider Urology | DX: R10.2 Pelvic and perineal pain (principal); R31.29 Other microscopic hematuria; R10.9 Unspecified abdominal pain | CPT/HCPCS: 81003; 88121 ==

== ENCOUNTER 2025-04-18 07:48 | Day surgery (SDC) | payer OTHER, SELFPAY ==
[2025-04-14 11:15] VITALS: BMI 23.0
--- NOTE | 2025-04-17 08:45 | P.CONAN_ITS ---
Documented by User: Eveline Farley NP 04/17/25 08:45 HPI - Anesthesia Eval Consult details Narrative: 65yo F for Cystoscopy Hydrodistention of Bladder,with Bladder biopsy PMFSH Active Problems Active Problems: All Active Problems Renal cyst, acquired (Acute) Hematuria (Acute) Pulmonary nodules (Acute) Pelvic pressure in female (Acute) Back pain (Acute) Campylobacter diarrhea (Acute) Elevated liver enzymes (Acute) Diarrhea (Acute) Arthritis (Acute) Fungal skin infection (Acute) Rash (Acute) Internal hemorrhoids (Acute) Hyperplastic polyp of sigmoid colon (Acute) Cough (Acute) Hip pain, left (Acute) Anxiety (Acute) Bilateral tinnitus (Acute) Right shoulder pain (Acute) Lower thoracic back pain (Acute) Chronic constipation (Acute) Leukocytosis (Acute) Serum calcium elevated (Acute) Microscopic hematuria (Acute) Diverticulosis (Acute) Complex renal cyst (Acute) Multiple adenomatous polyps (Acute) Dyslipidemia (Acute) COPD (chronic obstructive pulmonary disease) (Acute) Nicotine dependence, cigarettes, uncomplicated (Acute) Osteoporosis (Acute ~2014) Depression, major, recurrent (Acute) Palpitations (Acute) Past Medical History Medical History Pulmonary nodules Arthritis Nicotine dependence, cigarettes, uncomplicated Dyslipidemia Multiple adenomatous polyps Urinary incontinence Sleep apnea Osteoporosis (~2014) HLA B27 (HLA B27 positive) Palpitations COPD (chronic obstructive pulmonary disease) Depression, major, recurrent Family History Family History Father CVD (cardiovascular disease) Mother Kidney failure CHF (congestive heart failure) Atherosclerosis Atherosclerotic peripheral vascular disease Foot ulcer CVD (cardiovascular disease) Sister History of heart attack Brother CVD (cardiovascular disease) HTN (hypertension) Maternal Grandfather Unknown family medical history Maternal Grandmother Unknown family medical history Paternal Grandmother Bladder cancer Paternal Grandfather History of CVA (cerebrovascular accident) Other Mental health disorder Family history of problems with anesthesia: No Surgical History Surgical History History of colonoscopy History of foot surgery (~2018) History of vaginal surgery (~2005) History of eye surgery (~2013) History of spinal fusion (~2013) History of vaginal hysterectomy (~2003) History of laparoscopy (~2001) History of Problems with Anesthesia: No Social History Social History Housing: House Are you a primary career resource technician to a significant other at home: No Do you presently have visiting nurse or other home services: No Alcohol intake: current Alcohol intake frequency: holidays/special occasions only Alcohol type: wine Patient Tobacco Use Status: Current everyday Tobacco user Tobacco use type: Cigarette Cigarette Packs Per Day: 0.5 Cigarettes Per Day: 15 Years Smoked: 40 e-Cigarette/Vaping Use: Never Used Second Hand Smoke Exposure: Yes Use of substances other than those prescribed or required for medical reasons: No Have you been hit, kicked, punched, or otherwise hurt by someone within the past year? If so, by whom?: No Are you DNR?: No Advance Directives: No Advance Directives Information Provided: Yes Patient : No Poor oral hygiene: No Current occupational status: disabled Cognitive needs: No Hearing needs: No Vision needs: Yes Meds Allergies Allergy/AdvReac Type Severity Reaction Status Date / Time bupropion [From Wellbutrin] AdvReac Intermediate Vomiting Verified 04/18/25 08:09 buspirone AdvReac Intermediate vomiting Verified 04/18/25 08:09 varenicline [From Chantix] AdvReac Intermediate Mood Verified 04/18/25 08:09 changes, anger Home Medications ?Medication ?Instructions ?Recorded ?Confirmed ?Last Taken ?Type glucosamine 750 mg-chondroit 100 1 tab PO DAILY 08/31/23 04/18/25 Unknown History mg-msm-D3 25 gan-tdyc-ypm bor tablet Exam Height,Weight and Vital Signs: Height 5 ft 2 in Weight 57.153 kg Assessment and Plan Assessment Anesthesia Assessment: Chart Reviewed Final Anesthetic Review Family History of Problems with Anesthesia: No History of Problems with Anesthesia: No Documented by User: Jodie Benavidez MD 04/18/25 08:53 PMFSH Past Medical History Medical History Pulmonary nodules Arthritis Nicotine dependence, cigarettes, uncomplicated Dyslipidemia Multiple adenomatous polyps Urinary incontinence Sleep apnea Osteoporosis (~2014) HLA B27 (HLA B27 positive) Palpitations COPD (chronic obstructive pulmonary disease) Depression, major, recurrent Family History Family History Father CVD (cardiovascular disease) Mother Kidney failure CHF (congestive heart failure) Atherosclerosis Atherosclerotic peripheral vascular disease Foot ulcer CVD (cardiovascular disease) Sister History of heart attack Brother CVD (cardiovascular disease) HTN (hypertension) Maternal Grandfather Unknown family medical history Maternal Grandmother Unknown family medical history Paternal Grandmother Bladder cancer Paternal Grandfather History of CVA (cerebrovascular accident) Other Mental health disorder Surgical History Surgical History History of colonoscopy History of foot surgery (~2018) History of vaginal surgery (~2005) History of eye surgery (~2013) History of spinal fusion (~2013) History of vaginal hysterectomy (~2003) History of laparoscopy (~2001) Social History Social History Housing: House Are you a primary career resource technician to a significant other at home: No Do you presently have visiting nurse or other home services: No Alcohol intake: current Alcohol intake frequency: holidays/special occasions only Alcohol type: wine Patient Tobacco Use Status: Current everyday Tobacco user Tobacco use type: Cigarette Cigarette Packs Per Day: 0.5 Cigarettes Per Day: 15 Years Smoked: 40 e-Cigarette/Vaping Use: Never Used Second Hand Smoke Exposure: Yes Use of substances other than those prescribed or required for medical reasons: No Have you been hit, kicked, punched, or otherwise hurt by someone within the past year? If so, by whom?: No Are you DNR?: No Advance Directives: No Advance Directives Information Provided: Yes Patient : No Poor oral hygiene: No Current occupational status: disabled Cognitive needs: No Hearing needs: No Vision needs: Yes Meds Allergies Allergy/AdvReac Type Severity Reaction Status Date / Time bupropion [From Wellbutrin] AdvReac Intermediate Vomiting Verified 04/18/25 08:09 buspirone AdvReac Intermediate vomiting Verified 04/18/25 08:09 varenicline [From Chantix] AdvReac Intermediate Mood Verified 04/18/25 08:09 changes, anger Home Medications ?Medication ?Instructions ?Recorded ?Confirmed ?Last Taken ?Type glucosamine 750 mg-chondroit 100 1 tab PO DAILY 08/31/23 04/18/25 Unknown History mg-msm-D3 25 pbj-hdqz-ium bor tablet Exam Airway Mallampati Class: II TM Dist: >3cm Neck ROM: Full Heart: rrr Lungs: cta Assessment and Plan Assessment Anesthesia Assessment: Anesthesia Plan Discussed Final Anesthetic Review NPO: Yes ASA Class: III Final Preanesthetic Review: No Changes in Pt Med Stat, Meds/Allgs Chart Reviewed, Consent Obtained/Reviewed and Anes Risks/Benef Reviewed Patient Risk: Intermediate Procedure Risk: Low Anesthetic Plan Anesthetic Plan: MAC: Disposition: Standard PACU
[2025-04-18 08:05] VITALS: BP 121/66; PULSE 78; RESP 16; TEMP 36.6; O2SAT 98; BMI 22.2
[2025-04-18] MEDS: Lactated Ringers 1,000 ML 100 ML IVCONT (08:26)
--- NOTE | 2025-04-18 09:23 | W.PM.OPN ---
Operative Note Operative Note Date of Service: 04/18/25 Narrative: PREOP DIAGNOSIS: pelvic pain, microscopic hematuria POSTOP DIAGNOSIS: Interstitial cystitis, pelvic pain, microscopic hematuria, PROCEDURE: Cystoscopy hydrodistention Urethral dilation Bladder biopsy Anethesia: General Surgeon: Dr. Pati Vasquez Details of procedure: The patient was brought into the operating room placed on the OR table in supine position. 2 g of Ancef IV. General anesthesia was administered. The patient was repositioned into lithotomy position, prepped and draped in the usual sterile fashion. Time-out was done per protocol. On attempts to place the 22 fr cystoscope transurethrally there was resistance at the urethral meatus. The female sounds were used to dilate the urethral meatus starting with the 16 fr and sequentially dilated up to a 24 fr. The 22 fr cystoscope was than passed transurethrally into the bladder. Urine was drained from the bladder measuring 75 mL.The right and left ureteral orifices were visualized. The entire bladder was visualized. There were no suspicious bladder lesions seen. The bladder was filled with sterile water at 80 cm of water pressure under gravity. The bladder was distended for 2 minutes. Bladder capacity measured 550 mL. Revisualization of the bladder, mild to moderate multifocal glomerulations observed. No [place] ulcerations. The bladder was refilled with sterile water again at 80 cm of water pressure under gravity. The bladder was distended for 3 minutes. The fluid was drained from the bladder and measured 650 mL. Next bladder biopsy was done using the flexible biopsy forceps from the posterior wall, the Bugbee was used for hemostasis. The cystoscope was removed. 2% lidocaine urojet was passed transurethrally, Solution of (1% lidocaine plain, 15 mL, 0.5 % Marcaine 15 mL mixed with 30, 000 units of heparin concentration 5000 units per mL total of 6 mL hepaine) instilled transurethrally into the bladder. Belladonna was administered per rectum. The patient was brought out of anesthesia and taken to recovery in stable condition. Complications: None EBL: minimal (<5 mL)
--- NOTE | 2025-04-18 09:23 | MHC.SHP ---
Pre-Procedural Eval Section A - 24 Hr Update-Section A only Date of Service: 04/18/25 The patient is an INPATIENT: No The patient has been examined within 24 hours of the surgical procedure. The History & Physical has been completed within 30 days and I have reviewed it.: Yes Section B - Complete if H&P > 30 days Chief Complaint: Hematuria, unspecified Allergies: Allergies Allergy/AdvReac Type Severity Reaction Status Date / Time bupropion [From Wellbutrin] AdvReac Intermediate Vomiting Verified 04/18/25 08:09 buspirone AdvReac Intermediate vomiting Verified 04/18/25 08:09 varenicline [From Chantix] AdvReac Intermediate Mood Verified 04/18/25 08:09 changes, anger Plan Diagnosis/Plan: Unchanged I have reviewed the history and physical and performed a pertinent physical examination on my patient. No changes have occurred unless specified. Cystoscopy hydrodistention bladder biopsy. Risks discussed including but not limited, bleeding, bladder spasms. Time Spent With Patient Time: Total time managing care of this patient today ____ minutes.
[2025-04-18 10:30] VITALS: BP 150/49; PULSE 86; RESP 16; TEMP 36.2; O2SAT 98
[2025-04-18 10:35] VITALS: BP 156/55; PULSE 77; RESP 16; O2SAT 96
[2025-04-18 10:40] VITALS: BP 152/62; PULSE 73; RESP 18; O2SAT 97
[2025-04-18 10:45] VITALS: BP 142/64; PULSE 68; RESP 16; O2SAT 98
[2025-04-18] MEDS: Phenazopyridine HCL 200 MG TABLET PO (10:56)
[2025-04-18 10:59] VITALS: BP 155/60; PULSE 70; RESP 16; TEMP 36.2; O2SAT 98
== END 2025-04-18 11:30 | disposition home or self-care (01) ==
PROVIDERS: PCP Nurse Practitioner Family; Visit Provider Urology
PROC: 0T7B7ZZ Dilation of Bladder, Via Natural or Artificial Opening (ICD-10-PCS; CPT 52260; principal; 2025-04-18 09:30)
DX: R10.2 Pelvic and perineal pain (principal); N30.11 Interstitial cystitis (chronic) with hematuria; R31.29 Other microscopic hematuria; N28.1 Cyst of kidney, acquired; R35.0 Frequency of micturition; R35.1 Nocturia; N39.41 Urge incontinence; E78.5 Hyperlipidemia, unspecified; J44.9 Chronic obstructive pulmonary disease, unspecified; R91.8 Other nonspecific abnormal finding of lung field; F41.8 Other specified anxiety disorders; M81.0 Age-related osteoporosis without current pathological fracture; R00.2 Palpitations; G47.33 Obstructive sleep apnea (adult) (pediatric); Z79.899 Other long term (current) drug therapy; Z88.8 Allergy status to other drugs, medicaments and biological substances; Z98.1 Arthrodesis status; F17.210 Nicotine dependence, cigarettes, uncomplicated
CPT/HCPCS: 52260; 52204; 87086; 88305; J0690; J1100; J1644; J2003; J2405; J2704; J2795; J3010

== ENCOUNTER → 2025-04-18 07:48 | Outpatient (BNV) | payer OTHER, SELFPAY | PROVIDERS: PCP Nurse Practitioner Family; Visit Provider Urology | DX: N30.11 Interstitial cystitis (chronic) with hematuria (principal); R10.2 Pelvic and perineal pain | CPT/HCPCS: 52204; 52260 ==

== ENCOUNTER 2025-06-02 15:02 | Outpatient (AMB) | payer OTHER, SELFPAY ==
--- OUTSIDE RECORDS SUMMARY | 2024-05-10 09:00 | XMS_ITS ---
Author Organization [facility] Address [address] [place] [phone] Care Team Providers Care Professional Fighter Name Role Phone TRAV BOGGS Primary Care Provider Bulmaro Cali [phone] REASON FOR VISIT campbylobacter enteritis Encounters Encounter Location Date Provider Diagnosis [facility] [address] [place] [phone] 05/10/2024 Bulmaro Mnotilla Plan Of Treatment No Information Progress Notes * KAYLAN KEITA TDOB:1960 (65 yo F)Acc No.[id number]:05/10/2024 Progress Notes Patient: KAYLAN KEY Provider: Jackie Montilla MD :1960 A ge:64 Y S ex:Female Date:05/10/2024 Address:[address] [place], [place] [phone] Pcp:TRAV BOGGS Subjective: * Chief Complaints: * 1 . Campbylobacter enteritis. * Medical History: Objective: * Vitals: Assessment: Plan: * Treatment: * * The named appointment provid er may or may not be the originator of this progress note, and it is not deemed complete until electronically signed by the appointment provider. Sign off status: Pending * Provider: Jackie Montilla MD Date: 05/10/2024 Generated for Surjit elise/Britney/Joseitting on: 06/02/2025 03:05 PM EDT
--- OUTSIDE RECORDS SUMMARY | 2025-06-02 15:05 | XMS_ITS | Data Portability ---
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 [email or web address] Not available 10/17/2024 14:12:30 10/24/2024 10/24/2024 As noted, we heena e called to see this patient regarding concerns of bilateral flank pain. Evaluation in the field was performed by my executive administrative assistant colleague, as noted above, I provided real-time [...] worse. On the physical exam by the executive administrative assistant the patient has clear lung sounds. She [...] patient's took her to the ER at [facility] 5) I called a quick report to the emergency medicine position on duty and discuss this patient with her Disposition to the ER We discussed the situation and I recommended referral to the emergency department. This was based on abdominal pain [email or web address] Not available 10/24/2024 10:48:11 Plan of Treatment Reminders Order Date Submit Date Provider Last Modified By Organization Details Last Modified Time Details Appointments None recorded. Lab urinalysis, dipstick 2023 024 [email or web address], [phone] 4 10:51:50 BMP, serum or plasma 2023 024 [email or web address] [address], [phone] 4 10:51:50 Referral None recorded. Procedures None recorded. Surgeries None recorded. Imaging None recorded. Medication Orders ketorolac 30 mg/mL injection solution 2023 024 [email or web address] 7 [id number], [address] [place], [address], 10:51:50 sodium chloride 0.9 % intravenous solution 2023 024 [email or web address] 7 [id number], [address] [place], [address], 4 10:51:50 ketorolac 30 mg/mL injection solution [...] in Arterial blood by Pulse oximetry Systolic And Diastolic Provider Name and Address Organization Details Last Updated DateTime 4 90 /min 16 /min 97.8 [degF] 93 % 93 % 124/74 mm[Hg] Not Available [facility] - production 12:31:58 Date Recorded Oxygen saturation Oxygen saturation in Arterial blood by Pulse oximetry Heart rate Body temperature Respiratory rate Systolic And Diastolic Provider Name and Address Organization Details Last Updated DateTime 4 98 % 98 % 88 /min 98.9 [degF] 16 /min 120/74 mm[Hg] Not Available [facility] - production 09:43:23 Social History None recorded. Functional Status None recorded. Mental Status None recorded. Family History Nothing Reported. Medical History No medical history recorded. Gynecological HistoryNo gynecological history recorded. Obstetrics History GPAL:G 0 P 0 0 0 0 Past Encounters Encounter ID Performer Location Encounter Start Date Encounter Closed Date Diagnosis/Indication Diagnosis SNOMED-CT Code Diagnosis ICD10 Code Diagnosis Note [id number] MARQUEZ MCKINLEY MD [facility] [address] [place] [phone] [id number] 10/17/2024 12:31:55 10/17/2024 14:30:58 Low back pain 387569873 M54.50 [id number] VINEET BECKMAN MD [facility] [address] [place] [id number] 10/24/2024 09:43:21 10/24/2024 11:55:37 Abdominal pain 88604108 R10.9 Left flank pain [id number] 9 R10.9 Right flank pain 1424293 09 R10.9 Blood in urine 46792153 R31.9 Health Concerns Section Related Observation LastModified by Organization Detai ls LastModified Time None Recorded Concern Status LastModified by Organization Details LastModified Time None Recorded Advance Directives Directive None Recorded Payers Insurance Date Sequence Insurance Name Policy Number Policy Martinez Covered Member ID Martinez Member ID Guarantor Name 10/24/2024 1 [facility] - DOS ON OR AFTER 2023 - DUAL ELIGIBLE - ASSISTED OPTIONS AND ONE CARE (MEDICARE REPLACEMENT/ADV ANTAGE - HMO) Olivia Stafford [id number] Olivia Stafford Notes Date Note Type Note [...] .................... .................... .................... .................... .................... .................... . 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 .................... .................... .................... .................... .................... . [facility] Consulted: Marquez Mckinley .................... .................... .................... .................... .................... .................... .................... . Disposition: Fulfilled MARQUEZ MCKINLEY MD [address] [place] [address],[address], [place], [address], [employer] 10/17/2024 14:12:38 10/24/2024 text/html ROS as noted in the [facility] Nurse Triage Notes (Nilam Mckay - ALEJANDRO): Reason For Request: Patient has lower back [...] taking any OTC meds for symptoms relief. 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 .................... .................... .................... .................... .................... . 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 [facility] spoke directly to the patient and advised her that an ED eval is indicated to rule out a kidney stone. Patient is agreeable for an ED evaluation at [facility]. Patient would prefer to have her drive her right now. The patient was given the opportunity to ask questions and is agreeable to this plan. .................... .................... .................... .................... .................... .................... .................... . [facility] Consulted: Vineet Beckman .................... .................... .................... .................... .................... .................... .................... . Disposition: Fulfilled VINEET BECKMAN MD [address] [place] [address],[address] [facility], [place], [address], [employer] 10/24/2024 10:53:47 OBGyn Episode No OBEpisode recorded.
--- NOTE | 2025-06-02 15:09 | MHC.OFFVIS ---
Intake Visit Reasons: Hydrodistention/Bladder bx results Intake Note: Patient presents to office today for hydrodistention/bladder bx results Urology medications: none Blood thinners: none Cooking Instructor Required: No Accompanied by: Self / Same As Patient Allergies bupropion (From Wellbutrin) Adverse Reaction (Intermediate, Verified 06/02/25 15:10) Vomiting buspirone Adverse Reaction (Intermediate, Verified 06/02/25 15:10) vomiting varenicline (From Chantix) Adverse Reaction (Intermediate, Verified 06/02/25 15:10) Mood changes, anger Medication List - Last Reconciled 06/02/25 by Pati Vasquez MD ezetimibe (Zetia) 10 mg PO DAILY 90 days oenp-ucmxh-fhi-D3-hyal-elsy bor 750 mg-100 mg- 25 mcg 1 tab PO DAILY mirabegron ER (Myrbetriq) 50 mg PO DAILY nicotine (Nicotrol) 10 mg inhalation Q2-4H PRN 30 days nicotine (Nicoderm CQ) 1 patch transdermal DAILY 28 days nicotine (polacrilex) (Nicorette) 2 mg buccal Q2H 30 days omega 9-itl-ryq-fish oil 300-1,000 mg (Fish Oil) 1 cap PO DAILY 90 days oxycodone-acetaminophen 5-325 mg (Percocet) 1 tab PO Q6H PRN paroxetine HCl 40 mg PO QAM 90 days phenazopyridine (Azo Urinary Pain Relief) 199 mg (2 x 99.5 mg) PO TID PRN rosuvastatin 20 mg PO DAILY trazodone 100 mg PO BEDTIME 90 days HPI Comments Details: 06/02/25--Olivia is here in follow-up from cystoscopy bladder biopsy on 04/18/2025 bladder biopsy came back benign with some reactive cystitis 02/21/25-- 64-year-old female presenting with urinary symptoms and evaluation for hematuria. Her past medical history includes treatment for anxiety and depression, and she is currently on medications affecting cholesterol.She reports recurrent detection of blood in her urine over the years, linked to the presence of benign renal cysts. Recent imaging studies have shown no significant changes in these cysts. She also complains of abdominal and side pain, which is occasionally severe. This pain recently led to an emergency visit with kidney stone concerns, but imaging only confirmed the presence of cysts. Her urinary symptoms include frequent daytime urination every 30 minutes, accompanied by urgency and incontinence, which are worsened by physical stress like coughing or sneezing. The patient continues to experience nocturia, needing to void up to three times nightly. She acknowledges experiencing temporary relief in bladder pressure after urination. Discussed outpatient cystoscopy hydrodistension, possible bladder biopsies. Urine cytology/FISH Results - Imaging (CT scan 10/26/24): Simple benign renal cysts, no changes or new anomalies identified 02/13/23--Olivia is a 62-year-old female who presents to the office for cystoscopy and discussion of CT scan results. The patient is here for microscopic heamturia and complex renal cyst. The patient is an active cigarette smoker. Evaluation today: Blood: ?80 Lj/uL, leukocytes: negative. Consent was obtained to perform cystoscopy procedure. The patient was provided naproxen 500 mg and ciprofloxacin 500 mg x 1 dose pre-procedure today. Cystoscopy: no suspicious bladder lesion found. CAT scan results reviewed-- Right upper pole renal cyst- no enhancement c/w Simple cyst--. No imaging follow-up recommended. Plan: Simple/benign right renal cyst. No need for further management. Persistent Hematuria/Nicotine Dependence. Urine for cytology was ordered. Will continue to monitor Will consider repeat cystoscopy after three years. Follow-up in 6 months. [facility] Medical History Pulmonary nodules Arthritis Nicotine dependence, cigarettes, uncomplicated Dyslipidemia Multiple adenomatous polyps Urinary incontinence Sleep apnea Osteoporosis (~2014) HLA B27 (HLA B27 positive) Palpitations COPD (chronic obstructive pulmonary disease) Depression, major, recurrent Surgical History History of colonoscopy History of foot surgery (~2018) History of vaginal surgery (~2005) History of eye surgery (~2013) History of spinal fusion (~2013) History of vaginal hysterectomy (~2003) History of laparoscopy (~2001) Family History Father CVD (cardiovascular disease) Mother Kidney failure CHF (congestive heart failure) Atherosclerosis Atherosclerotic peripheral vascular disease Foot ulcer CVD (cardiovascular disease) Sister History of heart attack Brother CVD (cardiovascular disease) HTN (hypertension) Maternal Grandfather Unknown family medical history Maternal Grandmother Unknown family medical history Paternal Grandmother Bladder cancer Paternal Grandfather History of CVA (cerebrovascular accident) Other Mental health disorder Social History Housing: House Are you a primary child care group leader to a significant other at home: No Do you presently have visiting nurse or other home services: No Alcohol intake: current Alcohol intake frequency: holidays/special occasions only Alcohol type: wine Patient Tobacco Use Status: Current everyday Tobacco user Tobacco use type: Cigarette Cigarette Packs Per Day: 0.5 Cigarettes Per Day: 15 Years Smoked: 40 e-Cigarette/Vaping Use: Never Used Second Hand Smoke Exposure: Yes Current occupational status: disabled Cognitive needs: No Hearing needs: No Vision needs: Yes Review of Systems Const All systems reviewed & are unremarkable except as noted in HPI and below Reports no additional complaints Eyes Reports no additional complaints ENT Reports no additional complaints Card Reports no additional complaints Resp Reports no additional complaints GI Reports no additional complaints Reports as per HPI Musc Reports no additional complaints Skin/Breast Reports system reviewed and no additional complaints, except as documented Neuro Reports no additional complaints Psych Reports no additional complaints Endo Reports no additional complaints True/Lymph Reports no additional complaints Aller/Immun Reports no additional complaints Results AMB Urinalysis, Automated UA Leukoctes 0 Amos/uL Last Edit by Kate Fisher on 06/02/25 16:45 UA Nitrite Negative Last Edit by Kate Fisher on 06/02/25 16:45 UA Urobilinogen 17 mg/dL Last Edit by Kate Fisher on 06/02/25 16:45 UA Protein 1 mg/dL Last Edit by Kate Fisher on 06/02/25 16:45 UA pH 5.5 Last Edit by Kate Fisher on 06/02/25 16:45 UA Blood 200 Lj/uL Last Edit by Kate Fisher on 06/02/25 16:45 UA Specific [place] 1.025 Last Edit by Kate Fisher on 06/02/25 16:45 UA Ketone Negative Last Edit by Kate Fisher on 06/02/25 16:45 UA Bilirubin 0 mg/dL Last Edit by Kate Fisher on 06/02/25 16:45 UA Glucose 0 mg/dL Last Edit by Kate Fisher on 06/02/25 16:45 Assessment & Plan Assessment & Plan (1) Hematuria: Code(s): R31.9 - Hematuria, unspecified Category: Medical (2) Renal cyst, acquired: Code(s): N28.1 - Cyst of kidney, acquired Category: Medical (3) Interstitial cystitis (chronic) with hematuria: Code(s): N30.11 - Interstitial cystitis (chronic) with hematuria Category: Medical Orders: Orders AMB Urinalysis Automated Today N28.1 - Cyst of kidney, acquired, N30.11 - Interstitial cystitis (chronic) with hematuria, R31.9 - Hematuria, unspecified Medications: New mirabegron ER (Myrbetriq) 50 mg PO DAILY 30 tabs 5RF Scribe Plan - Not visible on output: Patient was informed and verbally consented to the use of an ambient scribe for clinic note documentation during this visit. Coding Diagnoses Hematuria R31.9 Renal cyst, acquired N28.1 Interstitial cystitis (chronic) with hematuria N30.11
== END 2025-06-02 15:34 | disposition home or self-care (01) ==
LOC: HO.HUSH 15:02
PROVIDERS: PCP Nurse Practitioner Family; Visit Provider Urology
DX: N28.1 Cyst of kidney, acquired (principal); R31.9 Hematuria, unspecified; N30.11 Interstitial cystitis (chronic) with hematuria

== ENCOUNTER → 2025-06-02 15:02 | Outpatient (BNVA) | payer OTHER, SELFPAY | PROVIDERS: PCP Nurse Practitioner Family; Visit Provider Urology | DX: N30.11 Interstitial cystitis (chronic) with hematuria (principal); N28.1 Cyst of kidney, acquired | CPT/HCPCS: 81003; 99212 ==

== ENCOUNTER 2025-06-07 10:47 | Outpatient (AMB) | payer OTHER, SELFPAY ==
--- OUTSIDE RECORDS SUMMARY | 2024-05-10 09:00 | XMS_ITS ---
Author Organization [facility] Address [address] [place] [phone] Care Team Providers Care Entry Level Management Name Role Phone TRAV BOGGS Primary Care Provider Bulmaro Cali [phone] REASON FOR VISIT campbylobacter enteritis Encounters Encounter Location Date Provider Diagnosis [facility] [address] [place] [phone] 05/10/2024 Bulmaro Montilla Plan Of Treatment No Information Progress Notes * KAYLAN KEITA TDOB:1960 (65 yo F)Acc No.[id number]:05/10/2024 Progress Notes Patient: KAYLAN KEY Provider: Jackie Montilla MD :1960 A ge:64 Y S ex:Female Date:05/10/2024 Address:[address] [place], [place] [phone] Pcp:TRAV BOGGS Subjective: * Chief Complaints: * [...] Date: 05/10/2024 Generated for Surjit elise/Britney/Joseitting on: 06/07/2025 11:46 AM EDT
--- NOTE | 2025-06-07 11:10 | MHC.PC.OV ---
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: No Accompanied by: Self / Same As Patient Allergies bupropion (From Wellbutrin) Adverse Reaction (Intermediate, Verified 06/07/25 11:10) Vomiting buspirone Adverse Reaction (Intermediate, Verified 06/07/25 11:10) vomiting varenicline (From Chantix) Adverse Reaction (Intermediate, Verified 06/07/25 11:10) Mood changes, anger Tobacco use date assessed: 06/07/25 Dental Screening Dental Screen Date: 06/07/25 Did you have a dental visit in the last 12 months?: Yes Did you have a dental problem in the last 6 months where you did not have access to dental care?: No Was dental information given to patient?: Patient has dentist HPI Annual Physical HPI Details History of Present Illness The patient is a 65-year-old female presenting for a wellness visit and management of chronic conditions. She continues to smoke and missed her last low dose CT scan, which is part of her lung cancer screening due to her smoking history. Her colon cancer screening is up to date, but she declines any vaccinations, including pneumonia. The patient has osteoporosis and initially did not want any treatment for it. A repeat bone density test is planned, and if results indicate significant osteoporosis, a referral to endocrinology for evaluation and treatment will be considered. Health Maintenance - Lung cancer screening with low dose CT scan due to smoking history - Colon cancer screening is up to date - Declines vaccinations, including pneumonia -mammo scheduled according to pt Social History - Smoking: Continues to smoke Review of Systems - Cardiovascular: Denies chest pain - Respiratory: Denies dyspnea - Gastrointestinal: Denies abdominal pain, constipation, diarrhea - Psychiatric: Denies suicidal ideation, homicidal ideation Physical Exam General: Cooperative, healthy appearing, comfortable, no acute distress and well developed Orientation: Patient oriented x3 Limitations: No limitations Head: Normal to inspection Ears: Hearing grossly normal bilaterally Nose: Normal external nose present Face and sinus: Normal facial exam Eyes: She does have eyes here. Appearance normal, both eyes and all related structures Neck: Normal visual inspection and Yes full ROM Respiratory: Normal respiratory effort and able to speak in complete sentences. Clear to auscultation bilaterally Cardiovascular: Regular rate and rhythm. Normal S1 and S2 GI: Normal to inspection. Soft to palpation and nontender Skin: No rashes or lesions noted Neuro: Patient oriented x3 Extremities: Normal to inspection Results Plan The patient will be rescheduled for a low dose CT scan as part of her lung cancer screening due to her smoking history. A repeat bone density test will be conducted to assess the severity of her osteoporosis. If the bone density results indicate significant osteoporosis (worsening), a referral to endocrinology for further evaluation and treatment will be considered. Pt refused a referral currently Discussion Notes I discussed with the patient the importance of rescheduling her low dose CT scan for lung cancer screening due to her ongoing smoking habit. We also talked about her osteoporosis and the plan to repeat her bone density test. If the results are concerning, I recommended a referral to endocrinology for further evaluation and treatment options. Patient Instructions - Schedule and attend the low dose CT scan for lung cancer screening. - Follow up for the repeat bone density test. 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 [facility] Medical History Pulmonary nodules Arthritis Nicotine dependence, cigarettes, uncomplicated Dyslipidemia Multiple adenomatous polyps Urinary incontinence Sleep apnea Osteoporosis (~2014) HLA B27 (HLA B27 positive) Palpitations COPD (chronic obstructive pulmonary disease) Depression, major, recurrent Surgical History History of colonoscopy History of foot surgery (~2018) History of vaginal surgery (~2005) History of eye surgery (~2013) History of spinal fusion (~2013) History of vaginal hysterectomy (~2003) History of laparoscopy (~2001) Family History Father CVD (cardiovascular disease) Mother Kidney failure CHF (congestive heart failure) Atherosclerosis Atherosclerotic peripheral vascular disease Foot ulcer CVD (cardiovascular disease) Sister History of heart attack Brother CVD (cardiovascular disease) HTN (hypertension) Maternal Grandfather Unknown family medical history Maternal Grandmother Unknown family medical history Paternal Grandmother Bladder cancer Paternal Grandfather History of CVA (cerebrovascular accident) Other Mental health disorder Social History Housing: House Are you a primary child care aide to a significant other at home: No Do you presently have visiting nurse or other home services: No Alcohol intake: current Alcohol intake frequency: holidays/special occasions only Alcohol type: wine Patient Tobacco Use Status: Current everyday Tobacco user Tobacco use type: Cigarette Cigarette Packs Per Day: 0.5 Cigarettes Per Day: 15 Years Smoked: 40 e-Cigarette/Vaping Use: Never Used Second Hand Smoke Exposure: Yes Current occupational status: disabled Cognitive needs: No Hearing needs: No Vision needs: Yes Questionnaire PHQ-9 Over the last 2 weeks, how often have you been bothered by any of the following problems? 1. Little interest or pleasure in doing things: not at all 2. Feeling down, depressed, or hopeless: not at all 3. Trouble falling or staying asleep, or sleeping too much: not at all 4. Feeling tired or having little energy: several days 5. Poor appetite or overeating: not at all 6. Feeling bad about yourself - or that you are a failure or have let yourself or your family down: not at all 7. Trouble concentrating on things, such as reading the newspaper or watching television: not at all 8. Moving or speaking so slowly that other people could have noticed. Or the opposite - being so fidgety or restless that you have been moving around a lot more than usual: not at all 9. Thoughts that you would be better off or of hurting yourself in some way: not at all Total score: 1 Depression Screening Interpretation: Negative Depression Screening Done: Yes 74537 - PHQ-9 Billing: Yes Source: Developed by Drs. Bulmaro Campoverde, Vita Hanna, Harvey Ayers and colleagues, with an educational nick from [employer]. Thrive Questionnaire Date Thrive assessed: 11/15/24 I am a: Patient What is your living situation today?: I have a steady place to live Within the past 12 months, did the food you bought not last and you didn't have the money to get more?: Often true Within the past 12 months, did you worry whether your food would run out before you got money to buy more?: Never true Do you have trouble paying for medicines?: No Do you have trouble getting transportation to medical appointments?: No Do you have trouble paying your heating and electricity bill?: No Do you have trouble taking care of your child, family member or friend?: No Do you have trouble with day-to-day activities such as bathing, preparing meals, shopping, managing finances, etc.?: No Are you currently unemployed and looking for a job?: Yes Are you interested in more education?: No Please select the resources that you would like help with: None Currently or been in a relationship where the following occur: I choose not to answer THRIVE Score: 1 AUDIT C Alcohol Use Questionnaire (AUDIT-C) 1. How often do you have a drink containing alcohol?: 2-4 times a month 2. How many drinks containing alcohol do you have on a typical day when you are drinking?: 1 or 2 3. How often do you have six or more drinks on one occasion?: Never Total Score: 2 BARB-7 AMB Questionnaire BARB-7 Date BARB - 7 assessed: 06/07/25 Feeling nervous, anxious, or on edge: 0 = Not at all Not being able to stop or control worryin = Not at all Worrying too much about different things: 0 = Not at all Trouble relaxin = Not at all Being so restless that it is hard to sit still: 0 = Not at all Becoming easily annoyed or irritable: 0 = Not at all Feeling afraid as if something awful might happen: 0 = Not at all Total BARB-7 score (0-4 normal; 5-9 mild; 10-14 moderate; 15-21 severe): 0 Source: Developed by Drs. Bulmaro Campoverde, Vita Hanna, Hravey Ayers and colleagues, with an educational nick from [employer]. BARB-7 Assessment Billing BARB-7 Assessment Tool: BARB-7 Assessment 56935 Physical exam (Primary Care) Vital Signs: Last Vital Signs Temp 98.5 F 06/07/25 11:12 Pulse 78 06/07/25 11:12 Resp 16 06/07/25 11:12 BP 110/70 06/07/25 11:12 Pulse Ox 95 06/07/25 11:12 Oxygen Delivery Method Room Air 06/07/25 11:12 BMI result Body Mass Index 22.0 Tobacco/Smoking Status: Tobacco use Status Tobacco use date assessed 06/07/25 06/07/25 11:12 Patient Tobacco Use Status Current everyday Tobacco 06/07/25 11:12 Tobacco use type Cigarette 06/07/25 11:12 e-Cigarette/Vaping Use Never Used 06/07/25 11:12 PHQ-9: PHQ-9 Score PHQ-9: Total score 1 06/07/25 11:12 Depression Screening Interpretation: Negative Thrive Assessment: Date of Thrive Assessment Date Thrive assessed 11/15/24 06/07/25 11:12 Currently or been in a relationship where the following occur: I choose not to answer Coding Level of Care Code Est Pt Prev Care 40-64y(81800) Diagnoses Physical exam Z00.00 Osteoporosis M81.0 Centrilobular emphysema J43.2 COPD type: emphysema Emphysema type: centrilobular Additional Codes BARB-7 Assessment Billing - BARB-7 Assessment Tool: BARB-7 Assessment 93182 ([id number]) PHQ-9 - 63158 - PHQ-9 Billing: Yes ([id number]) Assessment & Plan Assessment & Plan (1) Physical exam: Code(s): Z00.00 - Encounter for general adult medical examination without abnormal findings Category: Medical (2) Osteoporosis: Onset Date: ~2014 Comment: (Bone Dexa Femoral T-Score: -2.9 on 08/09/2015) Code(s): M81.0 - Age-related osteoporosis without current pathological fracture Category: Medical (3) COPD (chronic obstructive pulmonary disease): Code(s): J44.9 - Chronic obstructive pulmonary disease, unspecified Category: Medical Qualifiers: COPD type: emphysema Emphysema type: centrilobular Qualified Code(s): J43.2 - Centrilobular emphysema Plan . Orders: Orders Comprehensive [place]. Panel Fast Today Z00.00 - Encounter for general adult medical examination without abnormal findings TSH reflex Free T4 Today Z00.00 - Encounter for general adult medical examination without abnormal findings Lipid Panel Today Z00.00 - Encounter for general adult medical examination without abnormal findings Vitamin D 25-OH Total Today M81.0 - Age-related osteoporosis without current pathological fracture Complete Blood Count Auto Diff Today Z00.00 - Encounter for general adult medical examination without abnormal findings UA CC w/rflx Micro + Cult Today Z00.00 - Encounter for general adult medical examination without abnormal findings XR DEXA axial skeleton Today M81.0 - Age-related osteoporosis without current pathological fracture
[2025-06-07 11:12] VITALS: BP 110/70; PULSE 78; RESP 16; TEMP 36.9; O2SAT 95; BMI 22.0
== END 2025-06-07 11:56 | disposition home or self-care (01) ==
LOC: HO.HMCC 10:48
PROVIDERS: PCP Nurse Practitioner Family; Visit Provider Nurse Practitioner Family
DX: Z00.00 Encounter for general adult medical examination without abnormal findings (principal); M81.0 Age-related osteoporosis without current pathological fracture; J43.2 Centrilobular emphysema

== ENCOUNTER → 2025-06-07 10:47 | Outpatient (BNVA) | payer OTHER, SELFPAY | PROVIDERS: PCP Nurse Practitioner Family; Visit Provider Nurse Practitioner Family | DX: Z00.00 Encounter for general adult medical examination without abnormal findings (principal); M81.0 Age-related osteoporosis without current pathological fracture; J43.2 Centrilobular emphysema; Z13.31 Encounter for screening for depression; Z13.39 Encounter for screening examination for other mental health and behavioral disorders | CPT/HCPCS: 96127; 99396 ==

== ENCOUNTER 2025-08-02 08:04 | Outpatient (REF) | payer OTHER, SELFPAY ==
--- NOTE | ~2025-08-02 | MM_ITS ---
STUDY: DUAL ENERGY X-RAY ABSORPTIOMETRY / DXA REASON FOR EXAM: Female, 65 years old M81.0 - Age-related osteoporosis without current pathological fracture TECHNIQUE: Bone Mineral Density (BMD) measurements of the lumbar spine and left hip were obtained using [employer] COMPARISON: August 09, 2015 FINDINGS: L1-L4 BMD: 0.919 g/cm2 L1-L4 T score: -2.2. This corresponds to osteopenia. This represents a 5.1* % increase in bone density compared with prior exam from August 09, 2015. Left femoral neck BMD: 0.663 g/cm2 Left femoral neck T score: -2.7. This corresponds to osteoporosis. Left total hip BMD: 0.621 g/cm2 Left total hip T score: -3.1. This corresponds to osteoporosis. This represents a -0.8 % decrease in bone density compared with prior exam from August 09, 2015. * - Indicates a statistically significant change. MM/XR DEXA axial skeleton IMPRESSION: Osteoporosis Reference Information: The T-score is the number of standard deviations above or below the standard which is normal for young adults at their peak bone mineral density. The World Health Organization (WHO) interprets the T-scores as follows: At or above -1 SD Normal bone density Between -1 and -2.5 SD Osteopenia At or below -2.5 SD Osteoporosis Electronically signed by: Mack Grady MD 08/02/2025 12:48 PM EDT
== END 2025-08-02 08:05 | disposition home or self-care (01) ==
LOC: HO.MAMMO 08:04
PROVIDERS: PCP Nurse Practitioner Family; Visit Provider Nurse Practitioner Family
DX: M81.0 Age-related osteoporosis without current pathological fracture (principal)
CPT/HCPCS: 77080

== ENCOUNTER → 2025-08-02 08:45 | Outpatient (BNV) | payer OTHER, SELFPAY | PROVIDERS: PCP Nurse Practitioner Family; Visit Provider Radiology Body Imaging | DX: E28.39 Other primary ovarian failure (principal) | CPT/HCPCS: 77080 ==

== ENCOUNTER 2025-08-12 07:36 | Outpatient (REF) | payer OTHER, SELFPAY ==
--- OUTSIDE RECORDS SUMMARY | 2024-05-10 09:00 | XMS_ITS ---
Author Organization [facility] Address [address] [place] [phone] Care Team Providers Care Waist Fitter Name Role Phone TRAV BOGGS Primary Care Provider Bulmaro Cali [phone] REASON FOR VISIT campbylobacter enteritis Encounters Encounter Location Date Provider Diagnosis [facility] [address] [place] [phone] 05/10/2024 Bulmaro Montilla Plan Of Treatment No Information Progress Notes * KAYLAN KEITA TDOB:1960 (65 yo F)Acc No.[id number]:05/10/2024 Progress Notes Patient: KAYLAN KEY Provider: Jackie Montilla MD :1960 A ge:64 Y S ex:Female Date:05/10/2024 Address:[address] [place], [place] [phone] Pcp:TRAV BOGGS Subjective: * Chief Complaints: * [...] MD Date: 0 05/10/2024 Generated for Surjit elise/Britney/Joseitting on: 07:39 AM EDT
--- OUTSIDE RECORDS SUMMARY | 2025-08-12 07:40 | XMS_ITS | Patient Health Record ---
Author Organization [facility] Address [address] [place] [id number] Care Team Providers Care Trailer Sections Assembler Name Role Phone TRAV [employer]GGS Primary Care Provider Bulmaro Cali [phone] Reason For Referral No Information Plan Of Treatment No Information Insurance Providers Payer Name Payer Address Payer Phone Subscriber Number Group Number Insured Name Patient Relationship to Insured Coverage Start Date Coverage End Date [employer] [address] [place] [address] [id number] KAYLAN KEITA Self - patient is the insured
== END 2025-08-12 07:37 | disposition home or self-care (01) ==
LOC: HO.MAMMO 07:36
PROVIDERS: PCP Nurse Practitioner Family; Visit Provider Nurse Practitioner Family
DX: Z12.31 Encounter for screening mammogram for malignant neoplasm of breast (principal)
CPT/HCPCS: 77063; 77067

== ENCOUNTER → 2025-08-12 08:00 | Outpatient (BNV) | payer OTHER, SELFPAY | PROVIDERS: PCP Nurse Practitioner Family; Visit Provider Internal Medicine | DX: Z12.31 Encounter for screening mammogram for malignant neoplasm of breast (principal) | CPT/HCPCS: 77063; 77067 ==

== ENCOUNTER 2025-10-19 10:15 | Outpatient (AMB) | payer OTHER, SELFPAY ==
[2025-10-19 10:17] VITALS: BP 134/68; PULSE 90; O2SAT 96; BMI 21.2
--- NOTE | 2025-10-19 10:17 | MHC.OFFVIS ---
Vital Signs 10/19/25 10:17 Height 5 ft 2 in Weight 115 lb 15.41 oz BMI 21.2 BP 134/68 Blood Pressure Location Lt brachial Position Sitting Pulse 90 Pulse Source Pulse Oximeter Pulse Oximetry (%) 96 Oxygen Delivery Method Room Air Intake Visit Reasons: Age-related osteoporosis without current pathologi Intake Note: New patient internally referred from PCP for Age-related for Osteoporosis. 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 Accompanied by: Self / Same As Patient Allergies bupropion (From Wellbutrin) Adverse Reaction (Intermediate, Verified 10/19/25 10:30) Vomiting buspirone Adverse Reaction (Intermediate, Verified 10/19/25 10:30) vomiting varenicline (From Chantix) Adverse Reaction (Intermediate, Verified 10/19/25 10:30) Mood changes, anger Medication List - Last Reconciled 10/19/25 by Bulmaro Tovar MD calcium carbonate 600 mg PO BID ezetimibe (Zetia) 10 mg PO DAILY 90 days ozin-bgsvt-dql-D3-hyal-elsy bor 750 mg-100 mg- 25 mcg 1 tab PO DAILY mirabegron ER (Myrbetriq) 50 mg PO DAILY nicotine (Nicotrol) 10 mg inhalation Q2-4H PRN 30 days nicotine (Nicoderm CQ) 1 patch transdermal DAILY 28 days nicotine (polacrilex) (Nicorette) 2 mg buccal Q2H 30 days omega 9-edc-wyc-fish oil 1,200 (144-216) mg (Fish Oil) caps PO omega 1-mtt-esu-fish oil 300-1,000 mg (Fish Oil) 1 cap PO DAILY 90 days paroxetine HCl 40 mg PO QAM 90 days rosuvastatin 20 mg PO DAILY trazodone 100 mg PO BEDTIME 90 days HPI Comments Details: 65 YO Female is seen in consultation at the request of PCP for Osteoporosis. First diagnosed in 15 yrs . Not Received treatment in the past No history of pathologic fracture or ONJ. Has several servings of dietary calcium per day in the form of cheese , broccoli, cereal . Takes Calcium supplement 1200 mg daily in divided doses. Takes 2000 IU of Vitamin D daily. Denies ever using PPI, anticoagulant, antiepileptic or glucocorticoid medication. 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 UTD on dental cleanings and sees dentist every 6 months. No planned upcoming dental work or extractions. Smkes 15 cigs/day . No heavy ETOH use DXA dated []:08/02/25 FINDINGS: L1-L4 BMD: 0.919 g/cm2 L1-L4 T score: -2.2. This corresponds to osteopenia. This represents a 5.1* % increase in bone density compared with prior exam from August 09, 2015. Left femoral neck BMD: 0.663 g/cm2 Left femoral neck T score: -2.7. This corresponds to osteoporosis. Left total hip BMD: 0.621 g/cm2 Left total hip T score: -3.1. This corresponds to osteoporosis. This represents a -0.8 % decrease in bone density compared with prior exam from August 09, 2015. * - Indicates a statistically significant change. MM/XR DEXA axial skeleton IMPRESSION: Osteoporosis Labs: The patient is a 65-year-old female presenting for evaluation and management of osteoporosis. She was diagnosed with osteoporosis approximately 15 years ago following a bone density scan but has never been on medication for it. Her most recent bone density scan revealed a lowest T-score of -3.1, consistent with moderate to severe osteoporosis. She denies any history of fractures, has not experienced any loss in height, and has no family history of osteoporosis or hip fracture. Her gynecological history is notable for menarche around age 14 and a hysterectomy approximately 15 years ago due to a fibroid cyst. Prior to the hysterectomy, her menstrual periods were regular but heavy with clotting. She reports a dietary intake of calcium through foods like cheese, broccoli, and milk, and supplements with 1200 mg of calcium daily in a single dose. She does not take vitamin D supplements and does not engage in weight-bearing exercise. The patient is a current smoker, consuming about 15 cigarettes per day, and expresses a desire to quit. She denies heavy alcohol use, history of kidney stones, and use of medications such as proton pump inhibitors, blood thinners, seizure medications, or chronic steroids. [facility] Medical History Pulmonary nodules Arthritis Nicotine dependence, cigarettes, uncomplicated Dyslipidemia Multiple adenomatous polyps Urinary incontinence Sleep apnea Osteoporosis (~2014) HLA B27 (HLA B27 positive) Palpitations COPD (chronic obstructive pulmonary disease) Depression, major, recurrent Surgical History History of colonoscopy History of foot surgery (~2018) History of vaginal surgery (~2005) History of eye surgery (~2013) History of spinal fusion (~2013) History of vaginal hysterectomy (~2003) History of laparoscopy (~2001) Family History Father CVD (cardiovascular disease) Mother Kidney failure CHF (congestive heart failure) Atherosclerosis Atherosclerotic peripheral vascular disease Foot ulcer CVD (cardiovascular disease) Sister History of heart attack Brother CVD (cardiovascular disease) HTN (hypertension) Maternal Grandfather Unknown family medical history Maternal Grandmother Unknown family medical history Paternal Grandmother Bladder cancer Paternal Grandfather History of CVA (cerebrovascular accident) Other Mental health disorder Social History Housing: House Are you a primary career center director to a significant other at home: No Do you presently have visiting nurse or other home services: No Alcohol intake: current Alcohol intake frequency: holidays/special occasions only Alcohol type: wine Patient Tobacco Use Status: Current everyday Tobacco user Tobacco use type: Cigarette Cigarette Packs Per Day: 0.5 Cigarettes Per Day: 15 Years Smoked: 40 e-Cigarette/Vaping Use: Never Used Second Hand Smoke Exposure: Yes Current occupational status: disabled Cognitive needs: No Hearing needs: No Vision needs: Yes Physical Exam Vital Signs: Last Vital Signs Pulse 90 10/19/25 10:17 BP 134/68 10/19/25 10:17 Pulse Ox 96 10/19/25 10:17 Oxygen Delivery Method Room Air 10/19/25 10:17 BMI result Body Mass Index 21.2 There are no Cushingoid features. Absence of blue sclera. Absence of kyphosis. Thyroid gland is of nl size and weighs 15 gms. There are no thyroid nodules palpated. Lungs CTA. Heart S1 S2 Reg R/R Abdominal exam benign. Muscle strength 5/5 . Examination of spine reveals absence of tenderness on palpation Assessment & Plan Assessment & Plan (1) Osteoporosis: Onset Date: ~2014 Comment: (Bone Dexa Femoral T-Score: -2.9 on 08/09/2015) Code(s): M81.0 - Age-related osteoporosis without current pathological fracture Category: Medical Plan: This is a 65-year-old white female with a history of moderate to severe osteoporosis. She had partial secondary workup Plan is to complete the secondary workup by checking a TSH, free T4, phosphorus level, 24 hour urine for calcium and creatinine, urine immunofixation. Will ensure 1200 mg of calcium and vitamin D3 2000 IU. Assuming secondary workup was negative, would strongly consider the use of anabolic agent initially to be proceeded by an anti resorptive agent considering the patient is a very high risk for fracture 1. Moderate to Severe Osteoporosis The patient is a 65-year-old female with a T-score of -3.1, placing her at significant risk for fragility fractures. Given her relatively young age, the goal is to build bone density rather than just stabilize it. The sequence of therapy is critical, with an anabolic agent (bone-building) followed by an antiresorptive agent (bone-stabilizing) being the most effective strategy. Antiresorptive agents like bisphosphonates (Fosamax) or Prolia are not ideal first-line choices as they would preclude the more significant gains from anabolics and have a limited duration of use. Prolia also carries a risk of rebound fractures upon cessation if not followed by another agent. Anabolic agents are preferred. Evenity is the strongest and most preferred option (monthly injection for 12 months), followed by Tymlos (daily injection for 18 months), and then Forteo (daily injection for 24 months). The choice may be dictated by insurance approval. Plan: Begin a secondary workup for osteoporosis. This will include blood tests (thyroid function, vitamin D level) and a 24-hour urine collection for calcium. These tests will be performed in approximately 4 weeks, after the patient has initiated vitamin D supplementation. Will discuss initiating pharmacologic therapy after lab results are available at the next visit. The primary recommendation will be an anabolic agent, preferably Evenity, pending insurance authorization. The patient was counseled extensively on the different medication options, their mechanisms, and the importance of treatment sequencing. Start Vitamin D3 2000 IU daily. Continue calcium supplementation to ensure a total daily intake of 1200 mg (including diet). 3. Tobacco Use Disorder The patient smokes 15 cigarettes per day. Smoking is a significant risk factor for osteoporosis. Strongly anger control counselor the patient on smoking cessation. The importance of quitting for bone health and overall health was emphasized. 4. Health Maintenance and Fall Prevention Due to the high fracture risk, fall prevention is critical. Reinsurance Accountant on fall prevention strategies, including ensuring well-lit stairways with railings and removing tripping hazards such as toys and loose rugs. Provide patient with educational websites ([employer], Hormone.org, Bone Health and Osteoporosis Foundation). Follow-up in 3-4 months to review lab results and finalize treatment plan. The patient is instructed to complete lab work 4-6 weeks prior to the follow-up appointment. The patient had an opportunity to ask questions regarding treatment plan. The patient expressed understanding and agreement with the above treatment plan. Patient was informed and verbally consented to the use of an ambient scribe for clinic note documentation during this visit. Orders: Orders Thyroid Stimulating Hormone Today M81.0 - Age-related osteoporosis without current pathological fracture Phosphorus 4 Weeks M81.0 - Age-related osteoporosis without current pathological fracture Calcium, 24 Hr Ur 4 Weeks M81.0 - Age-related osteoporosis without current pathological fracture Vitamin D 25-OH Total 4 Weeks M81.0 - Age-related osteoporosis without current pathological fracture Free T4 (Free Thyroxine) 4 Weeks M81.0 - Age-related osteoporosis without current pathological fracture Creatinine, 24 Hr Group 4 Weeks M81.0 - Age-related osteoporosis without current pathological fracture Immunofixation, Random Urine 4 Weeks M81.0 - Age-related osteoporosis without current pathological fracture Coding Level of Care Code New Pt Level 4 (48364) Add On Problem Visit Only Diagnoses Osteoporosis M81.0
== END 2025-10-19 11:24 | disposition home or self-care (01) ==
LOC: HO.ENCR 10:16
PROVIDERS: PCP Nurse Practitioner Family; Visit Provider Internal Medicine Endocrinology, Diabetes & Metabolism
DX: M81.0 Age-related osteoporosis without current pathological fracture (principal)
CPT/HCPCS: 99204; G2211

== ENCOUNTER → 2025-10-19 10:15 | Outpatient (BNVA) | payer OTHER, SELFPAY | PROVIDERS: PCP Nurse Practitioner Family; Visit Provider Internal Medicine Endocrinology, Diabetes & Metabolism | DX: M81.0 Age-related osteoporosis without current pathological fracture (principal); F17.210 Nicotine dependence, cigarettes, uncomplicated; Z71.6 Tobacco abuse counseling; Z71.3 Dietary counseling and surveillance; Z68.21 Body mass index [BMI] 21.0-21.9, adult | CPT/HCPCS: 99202 ==

== ENCOUNTER 2025-10-20 15:15 | Outpatient (REF) | payer OTHER, SELFPAY ==
--- OUTSIDE RECORDS SUMMARY | 2024-05-10 08:00 | XMS_ITS ---
Author Organization [facility] Address [address] [place] [phone] Care Team Providers Care Residential Installer Name Role Phone TRAV BOGGS Primary Care Provider Bulmaro Cali [phone] REASON FOR VISIT campbylobacter enteritis Encounters Encounter Location Date Provider Diagnosis [facility] [address] [place] [phone] 05/10/2024 Bulmaro Montilla Plan Of Treatment No Information Progress Notes * KAYLAN KEITA TDOB:1960 (65 yo F)Acc No.[id number]:05/10/2024 Progress Notes Patient: KAYLAN KEY Provider: Jackie Montilla MD :1960 A ge:64 Y S ex:Female Date:05/10/2024 Address:[address] [place], [place] [id number] Pcp:TRAV BOGGS Subjective: * Chief Complaints: * C ampbylobacter enteritis * The named appointment provid er may or may not be the originator of this progress note, and it is not deemed complete until electronically signed by the appointment provider. Sign off status: Pending * Provider: Jackie Montilla MD Date: 0 05/10/2024 Generated for Surjit elise/Britney/Almassmitting on: 1 12/21/2024 08:11 PM EST
--- NOTE | ~2025-10-20 | CT_ITS ---
EXAMINATION: CT LOW-DOSE SCREENING CHEST WITHOUT CONTRAST CLINICAL INFORMATION: 65-year-old female, current smoker, 44 pack years, lung cancer screening. COMPARISON: 12/25/2023. TECHNIQUE: Multidetector volumetric CT imaging of the chest is performed on a Siemens SOMATOM Definition scanner without contrast using low dose technique. Additional 2D coronal and sagittal reformatted images and axial 3D maximum intensity projection (MIP) images are generated on the CT workstation. This CT examination was performed using dose optimization techniques as appropriate, variously including the following: *Automated exposure control *Adjustment of mA and/or kV according to patient size (this includes techniques or standardized protocols for targeted exams where dose is matched to indication/reason for exam; i.e. extremities or head) *Use of iterative reconstruction technique FINDINGS: PULMONARY NODULES: 5 mm pure groundglass nodule anterior right upper lobe, unchanged (series 4, image 59). 3 mm fissural nodule in the right middle lobe minor fissure, unchanged (series 4, image 85), likely an intrapulmonary lymph node. No new or enlarging pulmonary nodules. LUNGS: There is mild to moderate centrilobular emphysema with upper lobe predominance. There is stable mild scarring in the medial segment right middle lobe. Lungs otherwise clear. Mild small airway thickening diffusely consistent with mild chronic bronchitis. No significant bronchiectasis. Central airways are patent. No effusion or pneumothorax. MEDIASTINUM: Imaged thyroid is normal. There is no mediastinal lymphadenopathy or mass. The aorta is mildly calcified, normal in caliber, and course without evidence of aneurysm. The main pulmonary trunk is normal in size. The heart size is normal. There is trace pericardial fluid anteriorly. The esophagus is normal. There is a tiny type I hiatus hernia. CORONARY ARTERY CALCIFICATION: Moderate degree. CHEST WALL/AXILLA: There is no abnormal lymph nodes or mass. UPPER ABDOMEN: Imaged upper abdominal contents appear normal allowing for noncontrast low dose technique. OSSEOUS STRUCTURES: No suspicious lytic or blastic bone lesions. Mild to moderate degenerative spondylosis of the spine, unchanged. There is mild scoliosis. There are bone islands in T7, and T9. CT/CT lung screening IMPRESSION: 1. There are 2 stable tiny lung nodules. No new or enlarging pulmonary nodules. 2. Mild to moderate centrilobular emphysema. No active lung disease. 3. Ancillary findings as discussed in the body of the report. ASSESSMENT: 1. Lung-RADS Category 2: Benign appearance or behavior of nodules. 2. Lung-RADS Category S: None. RECOMMENDATION: Continued routine annual low-dose CT lung screening in 1 year is recommended. An order for CT CHEST LOW DOSE CANCER SCREENING ([id number]) can be placed. Electronically signed by: Alonso Espinosa MD 10/20/2025 04:03 PM [facility]
--- OUTSIDE RECORDS SUMMARY | 2025-10-20 20:12 | XMS_ITS | Patient Health Record ---
Author Organization [facility] Address [address] [place] [id number] Care Team Providers Care Piper Installer Name Role Phone TRAV BOGGS Primary Care Provider Bulmaro Cali [phone] Reason For Referral No Information Plan Of Treatment No Information Insurance Providers Payer Name Payer Address Payer Phone Subscriber Number Group Number Insured Name Patient Relationship to Insured Coverage Start Date Coverage End Date [facility] [address] [place] [address] [id number] KAYLAN KEITA Self - patient is the insured
--- OUTSIDE RECORDS SUMMARY | 2025-10-20 20:12 | XMS_ITS | Data Portability ---
Author Organization [employer] [facility], [facility] Address [address] [place] [address] Care Team Providers Care Disbursing Officer Name Role Phone HIM CCA OTHER TRAV BOGGS Primary Care Provider [phone] Assessment Encounter Date Assessment Date Assessment LastModified [...] for ongoing pain management and PT referral. [email or web address] Not available 10/17/2024 14:12:30 10/24/2024 10/24/2024 As noted, we heena e called to see this patient regarding concerns of bilateral flank pain. Evaluation in the field was performed by my service engineer colleague, as noted above, I provided real-time [...] worse. On the physical exam by the service engineer the patient has clear lung sounds. She [...] patient's took her to the ER at [facility] 5) I called a quick report to the emergency medicine position on duty and discuss this patient with her Disposition to the ER We discussed the situation and I recommended referral to the emergency department. This was based on abdominal pain [email or web address] Not available 10/24/2024 10:48:11 Plan of Treatment Reminders Order Date Submit Date Provider Last Modified By Organization Details Last Modified Time Details Appointments None recorded. Lab urinalysis, dipstick 2023 024 [email or web address], [address] 4 10:51:50 BMP, serum or plasma 2023 024 [email or web address], [address] 4 10:51:50 Referral None recorded. Procedures None recorded. Surgeries None recorded. Imaging None recorded. Medication Orders ketorolac 30 mg/mL injection solution 2023 024 [email or web address] 7 [id number], [address] [place], [address], 10:51:50 sodium chloride 0.9 % intravenous solution 2023 024 [email or web address] 7 [id number], [address] [place], [address], 4 10:51:50 ketorolac 30 mg/mL injection solution [...] rate Respiratory rate Body temperature Oxygen saturation Systolic And Diastolic Provider Name and Address Organization Details Last Updated DateTime 4 90 /min 16 /min 97.8 [degF] 93 % 124/74 mm[Hg] Not Available [facility] - production 4 12:31:58 Date Recorded Oxygen saturation Heart rate Body temperature Respiratory rate Systolic And Diastolic Provider Name and Address Organization Details Last Updated DateTime 4 98 % 88 /min 98.9 [degF] 16 /min 120/74 mm[Hg] Not Available [facility] production 09:43:23 Social History None recorded. Functional Status None recorded. Mental Status None recorded. Family History Nothing Reported. Medical History No medical history recorded. Gynecological HistoryNo gynecological history recorded. Obstetrics History GPAL:G 0 P 0 0 0 0 Past Encounters Encounter ID Performer Location Encounter Start Date Encounter Closed Date Diagnosis/Indication Diagnosis SNOMED-CT Code Diagnosis ICD10 Code Diagnosis IMO Codes Diagnosis Note [id number] MARQUEZ MCKINLEY MD [facility] [address] [place] [phone] 10/17/2024 12:31:55 10/17/2024 14:30:58 Low back pain 179240834 M54.50 [id number] VINEET BECKMAN MD [facility] [address] [place] [phone] 10/24/2024 09:43:21 10/24/2024 11:55:37 Abdominal pain 69847842 R10.9 Left flank pain 26050080 9 R10.9 Right flank pain 4218855 09 R10.9 Blood in urine 38378050 R31.9 Health Concerns Section Related Observation LastModified by Organization Detai ls LastModified Time None Recorded Concern Status LastModified by Organization Details LastModified Time None Recorded Advance Directives Directive None Recorded Payers Insurance Date Sequence Insurance Name Policy Number Policy Martinez Covered Member ID Martinez Member ID Guarantor Name 10/24/2024 1 [facility] - DOS ON OR AFTER 2023 - DUAL ELIGIBLE - [employer] AND ONE CARE (MEDICARE REPLACEMENT/ADV ANTAGE - HMO) Olivia Stafford [id number] Olivia Nydia Notes Date Note Type Note [...] .................... .................... .................... .................... .................... .................... . Sql Etl Developer Note From [employer]: This 64-year-old female [...] .................... .................... .................... .................... .................... .................... . [facility] Consulted: Marquez Mckinley .................... .................... .................... .................... .................... .................... .................... . Disposition: Fulfilled MARQUEZ MCKINLEY MD [address] [place] [address],[address], [place], [address], [employer] 10/17/2024 14:12:38 10/24/2024 text/html ROS as noted in the [facility] Nurse Triage Notes (Nilam Mckay - ALEJANDOR): Reason For Request: Patient has lower back [...] taking any OTC meds for symptoms relief. Sql Etl Developer Organization Information for [employer] Business Legal Name: [facility] Transportation Address: [address] [place] [address], Wafer Fabrication Operator: Abhay Larkin MD CLIA No.: [id number] Sql Etl Developer POC Test Results from [employer] [facility] (:46:34) pH: 7.38 pH units pCO2: 50.0 [...] .................... .................... .................... .................... .................... .................... . Sql Etl Developer Note From [employer]: This 64-year-old female [...] mL IV and Toradol 15 mg IVP. [facility] spoke directly to the patient and advised her that an ED eval is indicated to rule out a kidney stone. Patient is agreeable for an ED evaluation at [facility]. Patient would prefer to have her drive her right now. The patient was given the opportunity to ask questions and is agreeable to this plan. .................... .................... .................... .................... .................... .................... .................... . [facility] Consulted: Vineet Beckman .................... .................... .................... .................... .................... .................... .................... . Disposition: Fulfilled VINEET BECKMAN MD [address] [facility] [facility], [place], [address], [email or web address] 10/24/2024 10:53:47 OBGyn Episode No OBEpisode recorded.
== END 2025-10-20 15:16 | disposition home or self-care (01) ==
LOC: HO.CT 15:15
PROVIDERS: PCP Nurse Practitioner Family; Visit Provider Physician Assistant Medical
DX: F17.210 Nicotine dependence, cigarettes, uncomplicated (principal)
CPT/HCPCS: 71271

== ENCOUNTER → 2025-10-20 15:18 | Outpatient (BNV) | payer OTHER, SELFPAY | PROVIDERS: PCP Nurse Practitioner Family; Visit Provider Radiology Diagnostic Radiology | DX: F17.210 Nicotine dependence, cigarettes, uncomplicated (principal) | CPT/HCPCS: 71271 ==